=== PATIENT | female | born 1975 | race Two or more races ===

== ENCOUNTER 2020-07-23 10:00 | Outpatient (RCR) | payer OTHER, SELFPAY ==
--- NOTE | 2020-07-25 03:48 | HO.OPPROGNO ---
Subjective Subjective Date of Service: 07/23/20 Reason For Visit: depression Interim History: Felicita reports she is working hard to get through this time where she is homeless. Plans to look at at apartment on 07/26. Last seizure on 07/19-brief, muscle tension, some difficulty post seizure with full recovery within 2 hours she reports. Reports regime to be effective and without SE. Focusing on eating well, taking her vitamins and maintaining health. Sleep is variable depending upon current psychosocial stressor. Children are all well . I am not worried at the moment. Pt continues in regular psychotherapy. Medication Compliance: Yes Side effects from medications: No Attending Groups: No (NA) Review of Systems Reports abnormal gait (post seizure by history) and Reports seizure-like activity (07/19/20) Psychiatric: Reports abnormal sleep pattern (stressor dependend) Comments: Felicita and her have been evicted from their apartment. They are searching for new housing with the assistance of the housing authority. Mental Status Exam Mental Status Exam Patient Orientation: Person, Place, Time and Situation Level of Consciousness: Awake and Appropriate Patient Behavior: Appropriate Mood Description: Flat and Nervous (worries about housing) Affect Description: Flat Patient Cognition Impaired: No Ability to Follow Directions: Excellent Speech Pattern: Clear, Appropriate and Spontaneous Speech Memory Description: Intact Hallucinations: None (hx of this sx with increased stress and anxiety) Delusions: Not Present Thought Process: Intact and Goal Oriented Thought Content: positive for Intact Depressive Symptoms: Increased Anxiety, Insomnia (at times), Muscle Tension, Difficulty Sleeping (at times), Crying Spells and Hopelessness (at times, trying to be positive) Judgement: Good Discharge Plan Discharge Attending provider: Deann Chowdary Medications: New clonazepam [Klonopin] 2 mg tablet 2 mg PO BID Qty: 60 RF: 0 sertraline 25 mg tablet 25 mg PO DAILY Qty: 30 RF: 2 mirtazapine 45 mg tablet 45 mg PO BEDTIME Qty: 30 RF: 2 risperidone [Risperdal] 1 mg tablet 1 mg PO DAILY PRN (Reason: anxiety) Qty: 30 RF: 2 No Action ferrous sulfate 325 mg (65 mg iron) tablet 324 mg PO DAILY RF: 0 levetiracetam 750 mg tablet 750 mg PO BID RF: 0 oxycodone 5 mg tablet 5 mg PO BID PRN (Reason: pain) RF: 0 Women's Daily Formula 27-0.4 mg tablet 1 tab PO DAILY RF: 0 B Complex Plus Vitamin C 55-52-35-5-300 mg capsule 1 cap PO DAILY RF: 0 cholecalciferol (vitamin D3) [Vitamin D3] 25 mcg (1,000 unit) tablet 1 tab PO DAILY RF: 0 Assessment & Plan Patient educated on: medication risk/benefits (Risperdal prn pt finding helpful. We will continue along with current regime.), therapeutic strategies and medical condition Informed Consent: understands and further education needed Reason for contiued therapy Substantial Risk for: inability to function, rapid decompensation and med/psych decompensation Greater than 50% of the session was spent on counseling and/or coordination of care
== END 2020-09-23 23:55 | disposition home or self-care (01) ==
LOC: HO.PAOS 10:00
PROVIDERS: Visit Provider Clinical Nurse Specialist Psychiatric/Mental Health, Adult
DX: F32.9 Major depressive disorder, single episode, unspecified (principal)
CPT/HCPCS: 99213

== ENCOUNTER 2020-08-11 20:26 | Emergency (ER) | payer OTHER, SELFPAY ==
[2020-08-11 20:28] VITALS: BP 116/77; PULSE 99; RESP 20; TEMP 37.1; O2SAT 98; BMI 29.7
--- NOTE | 2020-08-11 21:40 | ECG_ITS ---
Test Reason : CP Blood Pressure : / mmHG Vent. Rate : 090 BPM Atrial Rate : 090 BPM P-R Int : 152 ms QRS Dur : 074 ms QT Int : 384 ms P-R-T Axes : 029 049 027 degrees QTc Int : 469 ms Normal sinus rhythm Nonspecific T wave abnormality Borderline ECG When compared with ECG of 13-FEB-2020 12:49, No significant change was found Referred By: Generic ED Physician Electronically Signed By:JOE PEREZ MD
== END 2020-08-11 22:34 | disposition left against medical advice (07) ==
PROVIDERS: Emergency Provider Student in an Organized Health Care Education/Training Program; PCP Internal Medicine
DX: R07.9 Chest pain, unspecified (principal)
CPT/HCPCS: 93005; 99282; 99283

== ENCOUNTER 2020-08-12 05:27 | Emergency (ER) | payer OTHER, SELFPAY ==
[2020-08-12 05:35] VITALS: BP 116/72; PULSE 95; RESP 16; TEMP 37.6; O2SAT 97; BMI 28.6
--- NOTE | 2020-08-12 06:07 | XR_ITS ---
EXAMINATION: LEFT HIP RADIOGRAPHS; CHEST RADIOGRAPH CLINICAL INFORMATION: Pain. COMPARISON: Chest radiograph 02/13/2020 TECHNIQUE: Portable AP chest radiograph; AP pelvis, AP and lateral radiographs of the left hip FINDINGS: Left hip: Mild superior subchondral sclerosis of the acetabulum is present bilaterally. No fractures or subluxations are identified. Mild osteitis condense and ileitis suggested in the left and right sacroiliac joints. Scattered pelvic phleboliths are noted. A moderate quantity of stool is noted within the rectal vault. CHEST: Multiple artifacts overlie the thorax. The cardiomediastinal silhouette is normal in appearance. No effusions or pneumothoraces are identified. A normal pattern of pulmonary vasculature is noted. XR/XR hip LT w PEL1V IMPRESSION: Chest: Normal. Lungs clear. Left hip: 1. No acute abnormalities. No fractures. 2. Mild bilateral hip osteoarthritis.
--- NOTE | 2020-08-12 06:08 | ECG_ITS ---
Test Reason : CP Blood Pressure : / mmHG Vent. Rate : 092 BPM Atrial Rate : 092 BPM P-R Int : 150 ms QRS Dur : 078 ms QT Int : 370 ms P-R-T Axes : 036 050 025 degrees QTc Int : 457 ms Normal sinus rhythm Nonspecific T wave abnormality Abnormal ECG When compared with ECG of 11-AUG-2020 20:35, No significant change was found Referred By: Gini Jeronimo Electronically Signed By:JOE PEREZ MD
--- NOTE | 2020-08-12 06:08 | XR_ITS ---
EXAMINATION: LEFT HIP RADIOGRAPHS; CHEST RADIOGRAPH CLINICAL INFORMATION: Pain. COMPARISON: Chest radiograph 02/13/2020 TECHNIQUE: Portable AP chest radiograph; AP pelvis, AP and lateral radiographs of the left hip FINDINGS: Left hip: Mild superior subchondral sclerosis of the acetabulum is present bilaterally. No fractures or subluxations are identified. Mild osteitis condense and ileitis suggested in the left and right sacroiliac joints. Scattered pelvic phleboliths are noted. A moderate quantity of stool is noted within the rectal vault. CHEST: Multiple artifacts overlie the thorax. The cardiomediastinal silhouette is normal in appearance. No effusions or pneumothoraces are identified. A normal pattern of pulmonary vasculature is noted. XR/XR chest 1V IMPRESSION: Chest: Normal. Lungs clear. Left hip: 1. No acute abnormalities. No fractures. 2. Mild bilateral hip osteoarthritis.
--- NOTE | 2020-08-12 06:11 | ED.CHESTPAIN ---
HPI - Chest Pain General Chief Complaint: Chest Pain Stated Complaint: ABD/CHEST/HIP PAIN,NO INJURY,SEEN T-1 FOR SAME Time Seen by Provider: 08/12/20 06:07 Source: patient Mode of arrival: EMS Limitations: no limitations History of Present Illness HPI narrative: This is a 45-year-old female who presents with left hip, abdominal, chest pain that is atraumatic and not associated with any fevers, chills, nausea, vomiting, urinary pain /burning/frequency. She states she has had some mild dizziness on changing position from sitting to standing that this transient is not associated with any hearing/visual /speech difficulties. She states that she was here yesterday for evaluation but had to leave because the wait was too long. Related Data Home Medications Medication Instructions Recorded Confirmed cholecalciferol (vitamin D3) 1 tab PO DAILY 07/25/20 07/25/20 [Vitamin D3] ferrous sulfate 324 mg PO DAILY 07/25/20 07/25/20 levetiracetam 750 mg PO BID 07/25/20 07/25/20 jyfxcedothdf-Mx-vavq-minerals 1 tab PO DAILY 07/25/20 07/25/20 [Women's Daily Formula] oxycodone 5 mg PO BID PRN 07/25/20 07/25/20 vitamin B comp and C no.3 [B 1 cap PO DAILY 07/25/20 07/25/20 Complex Plus Vitamin C] Previous Rx's Medication Instructions Recorded clonazepam [Klonopin] 2 mg PO BID #60 tab 07/23/20 mirtazapine 45 mg PO BEDTIME #30 tab 07/23/20 risperidone [Risperdal] 1 mg PO DAILY PRN #30 tab 07/23/20 sertraline 25 mg PO DAILY #30 tab 07/23/20 Allergies Allergy/AdvReac Type Severity Reaction Status Date / Time lorazepam [From ATIVAN] Allergy Unknown UNKNOWN Verified 08/12/20 05:38 zolmitriptan [From ZOMIG] Allergy Unknown RASH Verified 08/12/20 05:38 Review of Systems Review of Systems: Pertinent positives and negatives as stated in HPI 10 point review of systems otherwise negative. PMFSH Past Medical History Source: nursing notes reviewed Medical History Anemia Migraine Seizure disorder Surgical History Gastric bypass status for obesity Social History Social History Alcohol intake: never Smoking Status: Never smoker Smoked in Last 30 Days: No Use of substances other than those prescribed or required for medical reasons: No Advance Directives: No Advance Directives Information Provided: Yes Physical Exam Vital Signs: Vital Signs: Last Vital Signs Temp 99.7 F 08/12/20 05:35 Pulse 95 08/12/20 05:35 Resp 16 08/12/20 09:03 BP 116/72 08/12/20 05:35 Pulse Ox 97 08/12/20 05:35 Body Mass Index 28.6 VITAL SIGNS: Reviewed. GENERAL: Well developed, well nourished, in no acute distress. HEAD: Normocephalic/atraumatic, EYES: PERRLA, EOMI intact without pain, no nystagmus/pallor/icterus noted EARS: Ext canals without abnormality, TMs non-bulging and non-erythematous NOSE: Nares patent bilateral OROPHARYNX: no oral lesions noted, posterior pharynx clear and non-erythematous without noted tonsillar enlargement/erythema/exudates NECK: Supple, no adenopathy LUNGS: Normal breath sounds. No adventitious sounds or accessory muscle use. SpO2<97> CARDIOVASCULAR: Regular rate and rhythm without noted murmurs, no JVD or lower extremity edema. ABDOMEN: Soft, non-tender, non-distended with bowel sounds. No rigidity. No guarding. No palpable masses or hernias noted MUSCULOSKELETAL: No tenderness, deformities, or effusions noted on gross inspection. EXTREMITIES: No cyanosis, clubbing or edema. SKIN: Inspection of the skin reveals no rashes, ulcerations, jaundice, pallor, or petechiae. NEUROLOGIC: Alert and oriented x 4. Strength and sensation to light touch were grossly intact x 4. Course Course Course Narrative: This is a 45-year-old female with history and clinical presentation suggestive of possible arthritis with rule out infectious, anemia, arrhythmia, pneumonia, cardiac ischemia. On review of all investigations there is no evidence of systemic infection or change in anemia, there are no acute electrolyte abnormalities and no renal or liver abnormalities. High sensitivity troponin is within normal limits and taken together with an EKG that does not reflect any acute findings. patient's symptoms are less likely to be due to any form of arrhythmia and chest x-ray does not support pneumonia. MDM - Chest Pain Lab Data Result diagrams: 08/12/20 06:39 08/12/20 06:39 Labs: Lab Results 08/12/20 08/12/20 08/12/20 Range/Units 06:39 06:39 06:39 WBC 6.2 (4.8-10.8) X10*3/uL RBC 3.97 L (4.20-5.50) X10*6/uL Hgb 11.7 L (12.0-16.0) g/dl Hct 35.0 L (37-47) % MCV 88.2 (80-98) fL MCH 29.5 (27.0-33.0) pg MCHC 33.4 (31.0-35.0) g/dl RDW 11.6 (11.0-16.0) % Plt Count 325 (160-400) X10*3/uL MPV 9.6 (9.4-12.3) fL Immature Gran % (Auto) 0.2 (0.0-0.4) % Neut % (Auto) 79.4 H (45-73) % Lymph % (Auto) 17.1 L (20-40) % [place] % (Auto) 2.7 (2-11) % Eos % (Auto) 0.0 (0-4) % Baso % (Auto) 0.6 (0-2) % Lymph # (Auto) 1.1 L (1.2-4.9) X10*3/uL [place] # (Auto) 0.2 (0.1-1.2) X10*3/uL Eos # (Auto) 0.0 (0.0-0.4) X10*3/uL Baso # (Auto) 0.0 (0.0-0.2) X10*3/uL Abs Immat Gran (auto) 0.01 (0.00-0.03) X10*3/uL Absolute Neuts (auto) 4.9 (2.0-8.3) X10*3/uL Absolute Nucleated RBC 0.000 (0.0-0.012) X10*3/uL Nucleated RBC % (auto) 0.0 (0.0-0.2) /100WBC Sodium 138 (135-145) mmol/L Potassium 4.1 (3.3-5.1) mmol/l Chloride 105 (96-108) mmol/L Carbon Dioxide 25 (22-29) mmol/L Anion Gap 12 (12-20) BUN 12 (9-16) mg/dL Creatinine 0.73 (0.5-1.4) mg/dL Estim Creat Clear Calc 105.5 Estimated GFR > 60 Random Glucose 120 H (60-115) mg/dL Calcium 8.8 (8.4-10.2) mg/dL Total Bilirubin 0.5 (0.0-1.0) mg/dL AST 19 (5-31) U/L ALT 17 (0-31) U/L Alkaline Phosphatase 55 (39-117) U/L Troponin I High Sens < 3.5 (<3.5-17.0) ng/L Total Protein 7.4 (6.5-8.0) g/dL Albumin 4.2 (3.5-5.0) g/dL Urine Color Urine Appearance Urine pH (5.0-8.0) Ur Specific Roe (1.005-1.025) Urine Protein (NEG-TRACE) MG/DL Urine Glucose (UA) (NEG) MG/DL Urine Ketones (NEG) MG/DL Urine Blood (NEG) Urine Nitrite (NEG) Ur Leukocyte Esterase (NEG) Urine Test (NEGATIVE) 08/12/20 Range/Units 09:48 WBC (4.8-10.8) X10*3/uL RBC (4.20-5.50) X10*6/uL Hgb (12.0-16.0) g/dl Hct (37-47) % MCV (80-98) fL MCH (27.0-33.0) pg MCHC (31.0-35.0) g/dl RDW (11.0-16.0) % Plt Count (160-400) X10*3/uL MPV (9.4-12.3) fL Immature Gran % (Auto) (0.0-0.4) % Neut % (Auto) (45-73) % Lymph % (Auto) (20-40) % [place] % (Auto) (2-11) % Eos % (Auto) (0-4) % Baso % (Auto) (0-2) % Lymph # (Auto) (1.2-4.9) X10*3/uL [place] # (Auto) (0.1-1.2) X10*3/uL Eos # (Auto) (0.0-0.4) X10*3/uL Baso # (Auto) (0.0-0.2) X10*3/uL Abs Immat Gran (auto) (0.00-0.03) X10*3/uL Absolute Neuts (auto) (2.0-8.3) X10*3/uL Absolute Nucleated RBC (0.0-0.012) X10*3/uL Nucleated RBC % (auto) (0.0-0.2) /100WBC Sodium (135-145) mmol/L Potassium (3.3-5.1) mmol/l Chloride (96-108) mmol/L Carbon Dioxide (22-29) mmol/L Anion Gap (12-20) BUN (9-16) mg/dL Creatinine (0.5-1.4) mg/dL Estim Creat Clear Calc Estimated GFR Random Glucose (60-115) mg/dL Calcium (8.4-10.2) mg/dL Total Bilirubin (0.0-1.0) mg/dL AST (5-31) U/L ALT (0-31) U/L Alkaline Phosphatase (39-117) U/L Troponin I High Sens (<3.5-17.0) ng/L Total Protein (6.5-8.0) g/dL Albumin (3.5-5.0) g/dL Urine Color YELLOW Urine Appearance CLEAR Urine pH 8.0 (5.0-8.0) Ur Specific Roe 1.020 (1.005-1.025) Urine Protein NEG (NEG-TRACE) MG/DL Urine Glucose (UA) NEG (NEG) MG/DL Urine Ketones NEG (NEG) MG/DL Urine Blood NEG (NEG) Urine Nitrite NEG (NEG) Ur Leukocyte Esterase NEG (NEG) Urine Test NEGATIVE (NEGATIVE) ECG Data ECG #1: Attestation: I personally reviewed and interpreted this ECG as follows: Prior ECG tracings: available for review ( 08/11/2020 no acute changes on comparison) Interpretation: normal sinus rhythm, HR- 92, no evidence of acute ischemia, SD/QRS/ QTC are within normal limits. Discharge Plan Discharge Clinical Impression: Arthritis, Dehydration Patient Disposition: Home, Self-Care Instructions: Arthritis (ED) Additional Instructions: 1. You were evaluated for pneumonia, heart problems, infection, anemia and there were no findings to suggest any of these problems. There is a possibility that you may be mildly dehydrated and should increase your fluid intake especially with water. 2. Resume all of your home medications as prescribed. 3. Recommend following up with your primary care provider for further outpatient evaluation. Prescriptions: No Action clonazepam [Klonopin] 2 mg tablet 2 mg PO BID Qty: 60 RF: 0 sertraline 25 mg tablet 25 mg PO DAILY Qty: 30 RF: 2 mirtazapine 45 mg tablet 45 mg PO BEDTIME Qty: 30 RF: 2 risperidone [Risperdal] 1 mg tablet 1 mg PO DAILY PRN (Reason: anxiety) Qty: 30 RF: 2 ferrous sulfate 325 mg (65 mg iron) tablet 324 mg PO DAILY RF: 0 levetiracetam 750 mg tablet 750 mg PO BID RF: 0 oxycodone 5 mg tablet 5 mg PO BID PRN (Reason: pain) RF: 0 Women's Daily Formula 27-0.4 mg tablet 1 tab PO DAILY RF: 0 B Complex Plus Vitamin C 95-56-55-5-300 mg capsule 1 cap PO DAILY RF: 0 cholecalciferol (vitamin D3) [Vitamin D3] 25 mcg (1,000 unit) tablet 1 tab PO DAILY RF: 0 Referrals: Joan Posey MD [Primary Care Provider] - 2 days ( Further evaluation for patient's concerns regarding her seizures.)
[2020-08-12 06:43] LABS: MANUAL DIFF FLAG NO
[2020-08-12 06:57] LABS: Basophils Percent Auto 0.6 % (0-2); Hemoglobin 11.7 g/dl (12.0-16.0); Imm Gran Abs Auto 0.01 X10*3/uL (0.00-0.03); Imm Gran Pct Auto 0.2 % (0.0-0.4); Lymphocytes Absolute Auto 1.1 X10*3/uL (1.2-4.9); Lymphocytes Percent Auto 17.1 % (20-40); Mean Corpuscular HGB Conc 33.4 g/dl (31.0-35.0); Mean Corpuscular Hemoglobin 29.5 pg (27.0-33.0); Mean Corpuscular Volume 88.2 fL (80-98); Mean Platelet Volume 9.6 fL (9.4-12.3); Monocytes Absolute Auto 0.2 X10*3/uL (0.1-1.2); Monocytes Percent Auto 2.7 % (2-11); Neutrophils Absolute Auto 4.9 X10*3/uL (2.0-8.3); Neutrophils Percent Auto 79.4 % (45-73); Platelet Count 325 X10*3/uL (160-400); Red Blood Count 3.97 X10*6/uL (4.20-5.50); Red Cell Distribution Width 11.6 % (11.0-16.0); White Blood Count 6.2 X10*3/uL (4.8-10.8)
[2020-08-12 07:08] LABS: Alanine Aminotransferase 17 U/L (0-31); Albumin Level 4.2 g/dL (3.5-5.0); Alkaline Phosphatase 55 U/L (39-117); Anion Gap 12 (12-20); Aspartate Amino Transferase 19 U/L (5-31); Bilirubin Total 0.5 mg/dL (0.0-1.0); Blood Urea Nitrogen 12 mg/dL (9-16); Calcium 8.8 mg/dL (8.4-10.2); Carbon Dioxide 25 mmol/L (22-29); Chloride 105 mmol/L (96-108); Creatinine Clr Calc Pharmacy 105.5; Estimated Glomerular Filt Rate > 60; Glucose Random 120 mg/dL (60-115); Potassium 4.1 mmol/l (3.3-5.1); Sodium 138 mmol/L (135-145); Total Protein 7.4 g/dL (6.5-8.0)
[2020-08-12 07:11] LABS: Troponin-I High Sensitivity < 3.5 ng/L (<3.5-17.0)
[2020-08-12 09:03] VITALS: RESP 16
[2020-08-12 09:55] LABS: Glucose Urine UA NEG (NEG); Leukocyte Esterase Urine NEG (NEG); Nitrite Urine NEG (NEG); Urine Blood NEG (NEG); Urine Ketones NEG (NEG); Urine Protein NEG (NEG-TRACE)
[2020-08-12 09:56] LABS: Appearance Urine CLEAR; Color Urine YELLOW; UACC Culture Trigger NO; UPreg QC Valid YES
[2020-08-12 09:57] LABS: Urine Pregnancy NEGATIVE (NEGATIVE)
== END 2020-08-12 10:30 | disposition home or self-care (01) ==
PROVIDERS: Emergency Provider Student in an Organized Health Care Education/Training Program; PCP Internal Medicine
DX: M16.12 Unilateral primary osteoarthritis, left hip (principal); R07.9 Chest pain, unspecified; E86.0 Dehydration; R42 Dizziness and giddiness; M25.552 Pain in left hip; R10.9 Unspecified abdominal pain; Z79.899 Other long term (current) drug therapy; Z98.84 Bariatric surgery status
CPT/HCPCS: 36415; 71045; 73502; 80053; 81003; 81025; 84484; 85025; 93005; 99283; 99284

== ENCOUNTER 2020-08-16 19:28 | Emergency (ER) | payer OTHER, SELFPAY ==
--- NOTE | 2020-08-16 08:49 | ECG_ITS ---
Test Reason : CHEST PAIN Blood Pressure : / mmHG Vent. Rate : 087 BPM Atrial Rate : 087 BPM P-R Int : 142 ms QRS Dur : 080 ms QT Int : 370 ms P-R-T Axes : 031 035 016 degrees QTc Int : 445 ms Normal sinus rhythm Nonspecific ST abnormality Abnormal ECG When compared with ECG of 12-AUG-2020 06:29, Nonspecific T wave abnormality, improved in Anterolateral leads Referred By: Rodriguez Momin Electronically Signed By:JOE PEREZ MD
[2020-08-16 20:03] VITALS: BP 131/80; PULSE 86; RESP 16; TEMP 37.1; O2SAT 98; BMI 30.2
[2020-08-16 20:58] LABS: MANUAL DIFF FLAG NO
[2020-08-16 21:01] LABS: Basophils Absolute Auto 0.1 X10*3/uL (0.0-0.2); Basophils Percent Auto 0.9 % (0-2); Eosinophils Percent Auto 0.5 % (0-4); Hematocrit 32.1 % (37-47); Hemoglobin 10.8 g/dl (12.0-16.0); Imm Gran Abs Auto 0.02 X10*3/uL (0.00-0.03); Imm Gran Pct Auto 0.3 % (0.0-0.4); Lymphocytes Absolute Auto 2.7 X10*3/uL (1.2-4.9); Lymphocytes Percent Auto 35.4 % (20-40); Mean Corpuscular HGB Conc 33.6 g/dl (31.0-35.0); Mean Corpuscular Hemoglobin 29.6 pg (27.0-33.0); Mean Corpuscular Volume 87.9 fL (80-98); Mean Platelet Volume 9.3 fL (9.4-12.3); Monocytes Absolute Auto 0.5 X10*3/uL (0.1-1.2); Monocytes Percent Auto 7.2 % (2-11); Neutrophils Absolute Auto 4.2 X10*3/uL (2.0-8.3); Neutrophils Percent Auto 55.7 % (45-73); Platelet Count 309 X10*3/uL (160-400); Red Blood Count 3.65 X10*6/uL (4.20-5.50); Red Cell Distribution Width 11.9 % (11.0-16.0); White Blood Count 7.5 X10*3/uL (4.8-10.8)
[2020-08-16 21:15] VITALS: PULSE 82
--- NOTE | 2020-08-16 21:18 | PC.NURSE ---
Pt c/o mild nausea at this time, provider aware, no new orders. call nicolas within reach. pending labs
[2020-08-16 21:21] LABS: Anion Gap 12 (12-20); Blood Urea Nitrogen 7 mg/dL (9-16); Calcium 8.5 mg/dL (8.4-10.2); Carbon Dioxide 24 mmol/L (22-29); Chloride 105 mmol/L (96-108); Creatinine Clr Calc Pharmacy 114.5; Estimated Glomerular Filt Rate > 60; Glucose Random 113 mg/dL (60-115); Sodium 138 mmol/L (135-145)
[2020-08-16 21:28] LABS: Troponin-I High Sensitivity < 3.5 ng/L (<3.5-17.0)
--- NOTE | 2020-08-16 21:33 | ED_ITS ---
HPI - Chest Pain General Chief Complaint: Chest Pain Stated Complaint: Chest pain Time Seen by Provider: 08/16/20 20:38 Source: patient Mode of arrival: ambulatory History of Present Illness HPI narrative: patient with no history of coronary artery disease was moving boxes yesterday under lot of stress lately complaining of pain in the left front of the chest since yesterday which increases on movement of the left arm and palpation patient denied any shortness of breath no cough patient had similar pain in the past but this one seems to be different per patient MD complaint: chest pain Onset (ago): day(s) (1) Timing of current episode: constant Prior episodes: Yes Onset: during rest Pain location: left chest Pain radiation: left arm Severity: mild Quality: aching Relieving factors: nothing Exacerbating factors: movement Context: recent illness Associated symptoms: nausea Treatment prior to arrival: none Risk Factors Coronary artery disease risk factors: none Related Data Home Medications Medication Instructions Recorded Confirmed cholecalciferol (vitamin D3) 1 tab PO DAILY 07/25/20 07/25/20 [Vitamin D3] ferrous sulfate 324 mg PO DAILY 07/25/20 07/25/20 levetiracetam 750 mg PO BID 07/25/20 07/25/20 rtwcquertmvd-Ah-ccrc-minerals 1 tab PO DAILY 07/25/20 07/25/20 [Women's Daily Formula] oxycodone 5 mg PO BID PRN 07/25/20 07/25/20 vitamin B comp and C no.3 [B 1 cap PO DAILY 07/25/20 07/25/20 Complex Plus Vitamin C] Previous Rx's Medication Instructions Recorded clonazepam [Klonopin] 2 mg PO BID #60 tab 07/23/20 mirtazapine 45 mg PO BEDTIME #30 tab 07/23/20 risperidone [Risperdal] 1 mg PO DAILY PRN #30 tab 07/23/20 sertraline 25 mg PO DAILY #30 tab 07/23/20 Allergies Allergy/AdvReac Type Severity Reaction Status Date / Time lorazepam [From ATIVAN] Allergy Unknown UNKNOWN Verified 08/12/20 05:38 zolmitriptan [From ZOMIG] Allergy Unknown RASH Verified 08/12/20 05:38 Review of Systems Review of Systems: REVIEW OF SYSTEMS: Pertinent positives and negatives are stated above in the history. GEN: no fevers, chills, fatigue HEENT: no nasal congestion, sore throat, ear pain NEURO: no headache, dizziness, focal weakness PULM: no cough, shortness of breath CV: no palpitations, LE edema ABD: no abdominal pain, nausea, vomiting, diarrhea : no dysuria, urgency, frequency SKIN: no rash ROS otherwise negative x 10 [facility] Past Medical History Medical History Anemia Migraine Seizure disorder Surgical History Gastric bypass status for obesity Social History Social History Alcohol intake: never Smoking Status: Never smoker Smoked in Last 30 Days: No Use of substances other than those prescribed or required for medical reasons: No Advance Directives: No Advance Directives Information Provided: Yes Physical Exam Vital Signs: Vital Signs: Last Vital Signs Temp 98.7 F 08/16/20 20:03 Pulse 91 08/16/20 21:40 Resp 16 08/16/20 21:40 BP 113/70 08/16/20 21:40 Pulse Ox 98 08/16/20 21:40 Body Mass Index 30.2 Appearance: Alert. Oriented X3. No acute distress. Eyes: Pupils equal, round and reactive to light. ENT: Pharynx normal. Neck: Normal inspection. Neck supple. CVS: Normal heart rate and rhythm. Pulses normal left anterior chest wall tenderness on palpation no crepitus pain increases on left arm movements and palpation. Respiratory: No respiratory distress. Breath sounds normal. Abdomen: Soft and nontender. Skin: Skin warm and dry. Normal skin color. Normal skin turgor. Extremities: No lower extremity edema. Good range of movement Neuro: Oriented X 3. No motor deficit. No sensory deficit. MDM - Chest Pain MDM Narrative Medical decision making narrative: Pt with atypical chest pain EKG and high sensitive troponin negative patient advised to follow-up with primary care doctor Differential Diagnosis Differential diagnosis: Likely atypical chest pain, costochondritis and chest pain Medical Records Data Attestation: I reviewed the patient's medical records. Lab Data Attestation: I reviewed the patient's lab results. Result diagrams: 08/16/20 20:51 08/16/20 20:51 Labs: Lab Results 08/16/20 08/16/20 08/16/20 Range/Units 20:51 20:51 20:51 WBC 7.5 (4.8-10.8) X10*3/uL RBC 3.65 L (4.20-5.50) X10*6/uL Hgb 10.8 L (12.0-16.0) g/dl Hct 32.1 L (37-47) % MCV 87.9 (80-98) fL MCH 29.6 (27.0-33.0) pg MCHC 33.6 (31.0-35.0) g/dl RDW 11.9 (11.0-16.0) % Plt Count 309 (160-400) X10*3/uL MPV 9.3 L (9.4-12.3) fL Immature Gran % (Auto) 0.3 (0.0-0.4) % Neut % (Auto) 55.7 (45-73) % Lymph % (Auto) 35.4 (20-40) % [place] % (Auto) 7.2 (2-11) % Eos % (Auto) 0.5 (0-4) % Baso % (Auto) 0.9 (0-2) % Lymph # (Auto) 2.7 (1.2-4.9) X10*3/uL [place] # (Auto) 0.5 (0.1-1.2) X10*3/uL Eos # (Auto) 0.0 (0.0-0.4) X10*3/uL Baso # (Auto) 0.1 (0.0-0.2) X10*3/uL Abs Immat Gran (auto) 0.02 (0.00-0.03) X10*3/uL Absolute Neuts (auto) 4.2 (2.0-8.3) X10*3/uL Absolute Nucleated RBC 0.000 (0.0-0.012) X10*3/uL Nucleated RBC % (auto) 0.0 (0.0-0.2) /100WBC Hold Blue Top SEE NOTE Sodium 138 (135-145) mmol/L Potassium 3.0 L D (3.3-5.1) mmol/l Chloride 105 (96-108) mmol/L Carbon Dioxide 24 (22-29) mmol/L Anion Gap 12 (12-20) BUN 7 L (9-16) mg/dL Creatinine 0.69 (0.5-1.4) mg/dL Estim Creat Clear Calc 114.5 Estimated GFR > 60 Random Glucose 113 (60-115) mg/dL Calcium 8.5 (8.4-10.2) mg/dL Troponin I High Sens (<3.5-17.0) ng/L 08/16/20 Range/Units 20:51 WBC (4.8-10.8) X10*3/uL RBC (4.20-5.50) X10*6/uL Hgb (12.0-16.0) g/dl Hct (37-47) % MCV (80-98) fL MCH (27.0-33.0) pg MCHC (31.0-35.0) g/dl RDW (11.0-16.0) % Plt Count (160-400) X10*3/uL MPV (9.4-12.3) fL Immature Gran % (Auto) (0.0-0.4) % Neut % (Auto) (45-73) % Lymph % (Auto) (20-40) % [place] % (Auto) (2-11) % Eos % (Auto) (0-4) % Baso % (Auto) (0-2) % Lymph # (Auto) (1.2-4.9) X10*3/uL [place] # (Auto) (0.1-1.2) X10*3/uL Eos # (Auto) (0.0-0.4) X10*3/uL Baso # (Auto) (0.0-0.2) X10*3/uL Abs Immat Gran (auto) (0.00-0.03) X10*3/uL Absolute Neuts (auto) (2.0-8.3) X10*3/uL Absolute Nucleated RBC (0.0-0.012) X10*3/uL Nucleated RBC % (auto) (0.0-0.2) /100WBC Hold Blue Top Sodium (135-145) mmol/L Potassium (3.3-5.1) mmol/l Chloride (96-108) mmol/L Carbon Dioxide (22-29) mmol/L Anion Gap (12-20) BUN (9-16) mg/dL Creatinine (0.5-1.4) mg/dL Estim Creat Clear Calc Estimated GFR Random Glucose (60-115) mg/dL Calcium (8.4-10.2) mg/dL Troponin I High Sens < 3.5 (<3.5-17.0) ng/L ECG Data ECG #1: Interpretation: normal sinus rhythm heart rate [address] T wave changes normal axis normal intervals impression no acute ischemia Discharge Plan Discharge Clinical Impression: Atypical chest pain, Hypokalemia Patient Disposition: Home, Self-Care Instructions: Hypokalemia (ED), Chest Wall Pain (ED) Additional Instructions: continue oxycodone for pain and follow-up with primary care doctor. Have extra banana and orange juice daily for slight low potassium level in your blood and follow-up with your PCP in next 2 days Prescriptions: No Action clonazepam [Klonopin] 2 mg tablet 2 mg PO BID Qty: 60 RF: 0 sertraline 25 mg tablet 25 mg PO DAILY Qty: 30 RF: 2 mirtazapine 45 mg tablet 45 mg PO BEDTIME Qty: 30 RF: 2 risperidone [Risperdal] 1 mg tablet 1 mg PO DAILY PRN (Reason: anxiety) Qty: 30 RF: 2 ferrous sulfate 325 mg (65 mg iron) tablet 324 mg PO DAILY RF: 0 levetiracetam 750 mg tablet 750 mg PO BID RF: 0 oxycodone 5 mg tablet 5 mg PO BID PRN (Reason: pain) RF: 0 Women's Daily Formula 27-0.4 mg tablet 1 tab PO DAILY RF: 0 B Complex Plus Vitamin C 53-82-62-5-300 mg capsule 1 cap PO DAILY RF: 0 cholecalciferol (vitamin D3) [Vitamin D3] 25 mcg (1,000 unit) tablet 1 tab PO DAILY RF: 0 Interventions: ED Discharge Assessment Last Done: 08/16/20 22:26 Discharge Date/Time: 08/16/20 22:26
[2020-08-16] MEDS: Potassium Bicarbonate/Cit AC 25 MEQ TABLET.EFF PO (21:39)
[2020-08-16 21:40] VITALS: BP 113/70; PULSE 91; RESP 16; O2SAT 98
== END 2020-08-16 22:26 | disposition home or self-care (01) ==
PROVIDERS: Emergency Provider Internal Medicine; PCP Internal Medicine
DX: R07.89 Other chest pain (principal); E87.6 Hypokalemia; M79.602 Pain in left arm; Z79.899 Other long term (current) drug therapy; Z98.84 Bariatric surgery status
CPT/HCPCS: 36415; 80048; 84484; 85025; 93005; 99284

== ENCOUNTER → 2021-10-10 13:21 | Outpatient (BNVA) | payer OTHER, SELFPAY | PROVIDERS: PCP Internal Medicine; Visit Provider Anesthesiology | DX: M46.1 Sacroiliitis, not elsewhere classified (principal); G89.4 Chronic pain syndrome | CPT/HCPCS: 99202 ==

== ENCOUNTER → 2021-12-21 14:37 | Outpatient (BNVA) | payer OTHER, SELFPAY | PROVIDERS: PCP Internal Medicine; Visit Provider Nurse Practitioner Family | DX: G40.909 Epilepsy, unspecified, not intractable, without status epilepticus (principal); G43.909 Migraine, unspecified, not intractable, without status migrainosus; M54.81 Occipital neuralgia; M54.2 Cervicalgia; Z79.899 Other long term (current) drug therapy | CPT/HCPCS: 99202 ==

== ENCOUNTER 2022-01-05 11:43 | Day surgery (SDC) | payer OTHER, SELFPAY ==
[2021-12-30 11:14] VITALS: BMI 35.4
--- NOTE | 2022-01-04 10:27 | HO.ANESPROP2 ---
Documented by User: Shanel Kebede NP 01/04/22 10:29 HPI - Anesthesia Eval Consult details Narrative: 46yo F for Left Sacroiliac Joint Steroid Injection PMFSH Active Problems Active Problems: All Active Problems (Updated 12/30/21 @ 11:14 by Vanessa Colon RN) Cervicalgia (Acute) Bilateral occipital neuralgia (Acute) Chronic pain syndrome (Acute) Sacroiliitis (Acute) Seizure disorder (Acute) Migraine (Acute) Anemia (Acute) Past Medical History Medical History (Updated 01/05/22 @ 12:06 by Evon Reynolds) Anemia Asthma Chronic pain syndrome Depression with anxiety Migraine Sacroiliitis Seizure disorder Surgical History Surgical History (Updated 01/05/22 @ 12:05 by Evon Reynolds) Gastric bypass status for obesity History of bilateral breast reduction surgery Tubal ligation status Social History Social History (Updated 12/21/21 @ 14:58 by FRITZ Stinson) Alcohol intake: never Patient Tobacco Use Status: Never used Tobacco Meds Allergies Allergy/AdvReac Type Severity Reaction Status Date / Time zolmitriptan [From ZOMIG] Allergy Intermediate Migraine Verified 01/05/22 11:57 lorazepam [From ATIVAN] AdvReac Intermediate Nausea Verified 01/05/22 11:57 Home Medications Medication Instructions Recorded Confirmed Last Taken Type ferrous sulfate 325 mg (65 mg 324 mg PO DAILY 07/25/20 01/05/22 01/04/22 History iron) tablet levetiracetam 750 mg tablet 750 mg PO BID 07/25/20 01/05/22 01/05/22 07:00 History trcycncwukca-Dq-nuss-minerals 27 1 tab PO DAILY 07/25/20 12/30/21 Unknown History mg-0.4 mg tablet (Women's Daily Formula) oxycodone 5 mg tablet 5 mg PO BID PRN 07/25/20 12/30/21 Unknown History vitamin B comp and C no.3 15 mg-10 1 cap PO DAILY 07/25/20 12/30/21 Unknown History mg-50 mg-5 mg-300 mg capsule (B Complex Plus Vitamin C) mecobalamin (vitamin B12) 10,000 mcg IM 12/21/21 12/21/21 Unknown History mcg solution for injection Exam Exam Date and Time: January 04, 2022 1027 Height,Weight and Vital Signs: Height 5 ft 7 in Weight 102.512 kg Assessment and Plan Assessment Anesthesia Assessment: Chart Reviewed Documented by User: Duc Sheffield MD 01/16/22 16:15 HPI - Anesthesia Eval Consult details Narrative: 46yo F for Left Sacroiliac Joint Steroid Injection chronic back pain , radiation to LE and tingling PMFSH Past Medical History Medical History (Updated 01/05/22 @ 12:06 by Evon Reynolds) Anemia Asthma Chronic pain syndrome Depression with anxiety Migraine Sacroiliitis Seizure disorder Functional capacity: independent ambulation Family History Family history of problems with anesthesia: No Surgical History Surgical History (Updated 01/05/22 @ 12:05 by Evon Reynolds) Gastric bypass status for obesity History of bilateral breast reduction surgery Tubal ligation status History of Problems with Anesthesia: No Social History Social History (Updated 12/21/21 @ 14:58 by FRITZ Stinson) Alcohol intake: never Patient Tobacco Use Status: Never used Tobacco Meds Allergies Allergy/AdvReac Type Severity Reaction Status Date / Time zolmitriptan [From ZOMIG] Allergy Intermediate Migraine Verified 01/05/22 11:57 lorazepam [From ATIVAN] AdvReac Intermediate Nausea Verified 01/05/22 11:57 Home Medications Medication Instructions Recorded Confirmed Last Taken Type ferrous sulfate 325 mg (65 mg 324 mg PO DAILY 07/25/20 01/05/22 01/04/22 History iron) tablet levetiracetam 750 mg tablet 750 mg PO BID 07/25/20 01/05/22 01/05/22 07:00 History rmyquvboslbn-Hg-qwxk-minerals 27 1 tab PO DAILY 07/25/20 12/30/21 Unknown History mg-0.4 mg tablet (Women's Daily Formula) oxycodone 5 mg tablet 5 mg PO BID PRN 07/25/20 12/30/21 Unknown History vitamin B comp and C no.3 15 mg-10 1 cap PO DAILY 07/25/20 12/30/21 Unknown History mg-50 mg-5 mg-300 mg capsule (B Complex Plus Vitamin C) mecobalamin (vitamin B12) 10,000 mcg IM 12/21/21 12/21/21 Unknown History mcg solution for injection Exam Airway Mallampati Class: II TM Dist: >3cm Neck ROM: Full Partial: Upper Loose/Missing/Broken Teeth: Yes Heart: S1,S2 Lungs: b/l breath sounds Assessment and Plan Assessment Anesthesia Assessment: Anesthesia Plan Discussed Final Anesthetic Review Family History of Problems with Anesthesia: No History of Problems with Anesthesia: No NPO: Yes ASA Class: II Final Preanesthetic Review: No Changes in Pt Med Stat, Meds/Allgs Chart Reviewed, Consent Obtained/Reviewed and Anes Risks/Benef Reviewed Patient Risk: Intermediate Procedure Risk: Intermediate Anesthetic Plan Anesthetic Plan: MAC: Disposition: Standard PACU
--- NOTE | ~2022-01-05 | FL_ITS ---
EXAMINATION: XR FLUOROSCOPY WITH IMAGES CLINICAL INFORMATION: Sacroiliac joint injection COMPARISON: Pelvic radiograph 08/12/2020 TECHNIQUE: Fluoroscopy performed by Dr. Wilmer Oliver. Fluoroscopy time: 0.1 minutes DAP: 1.17 Gycm2 Images: 1 FINDINGS: Spinal needle overlies lower left SI joint. There is contrast in the periarticular soft tissues with probable early intra-articular contrast. No vasculature communication appreciated. FL/FL guidance in OR IMPRESSION: Fluoroscopy for pain management procedure.
[2022-01-05 12:02] VITALS: BP 120/80; PULSE 62; RESP 16; TEMP 36.6; O2SAT 98
--- NOTE | 2022-01-05 12:13 | MHC.SHP ---
Pre-Procedural Eval Section A Date of Service: 01/05/22 Section B Chief Complaint: sacroilitis Details of Present Illness: as above Relevant Family History (Specify if Yes): No Relevant Social History: None Present Medications: None Medical History: No relevant PMH History of Previous Operations: No relevant previous surgery Allergies: Allergies Allergy/AdvReac Type Severity Reaction Status Date / Time zolmitriptan [From ZOMIG] Allergy Intermediate Migraine Verified 01/05/22 11:57 lorazepam [From ATIVAN] AdvReac Intermediate Nausea Verified 01/05/22 11:57 Review of Systems Sugical H&P ROS: Negative: Constitution, Cardiovascular, Respiratory, Neurological, Psychiatric, Hem-Onc, Allergic/Immunologic, Gastrointestinal, Genitourinary, Musculoskeletal, Integumentary, Endocrine and Eyes/Ears/Nose/Throat Exam Surgical H&P Exam: Normal: HEENT, Normal: Heart, Normal: Lungs, Normal: Extremities, Normal: Abdomen, Normal: Skin and Normal: Neurological Plan Diagnosis/Plan: Unchanged I have reviewed the history and physical and performed a pertinent physical examination on my patient. No changes have occurred unless specified.
--- NOTE | 2022-01-05 12:14 | P.OP_ITS ---
Operative Note Operative Note Date of Service: 01/05/22 Narrative: Left SI joint steroid injection. Felicita is very pleasant 46 y.o. female? who came today into the operating room for the treatment of sacroiliitis. After obtaining informed consent the patient was brought to the operating room, She was positioned prone on operating table, [employer] [employer] monitors were applied and patient was sedated.? ?Time-out was performed delineating correct site, side, the nature of the procedure, patient's allergy, preoperative antibiotic if needed.? All operating room staff was participating in OR time-out procedure. Patient's lower back was prepped with DuraPrep twice and draped with utility Drapes.? Sterilely draped C-arm was brought over operating field and picture of the left SI joint was demonstrated on the screen. Tilting C-arm contralateral to the right 15 degrees the posterior and anterior portion of the SI joint on the left were superimposed on the screen. The point of interest was the most posterior and most inferior portion of the joint. the point of the injection needle insertion was chosen slightly medial to the sacral lip of the SI joint. The injection of local anesthetic into the skin was performed in the projection of the point of interest. After that 22g 3-1/2 inch needle was advanced toward the joint in tunnel vision fashion. When the needle was felt to enter the capsule of the joint contrast was injected into the joint demonstrating intra-articular spread of the contrast. After that injection of 4 mls of bupivacain 0.5% mixed with kenalog 40 mg was injected into the needle. The needle was removed after that and Bandaid was applied.the patient tolerated procedure well - she was taken outside of the OR to PACU whe she recovered uneventfully. She went home without immediate complications.
[2022-01-05] MEDS: Lactated Ringers 1,000 ML 100 ML IVCONT (12:28)
--- NOTE | 2022-01-05 14:21 | PM.OP ---
Brief Operative Note Date of Service: 01/05/22 Pre-op diagnosis: sacroiliitis Post-op diagnosis: same Procedure: sacroiliac joint injection - left Surgeon: Wilmer Oliver MD Anesthesia: MAC Was an Integrated Campaign Manager used for this Procedure?: No Estimated blood loss (mL): 0 Pathology: none sent Condition: stable Disposition: PACU
[2022-01-05] MEDS: Acetaminophen 325 MG TABLET 650 MG PO (14:30)
[2022-01-05 14:32] VITALS: BP 87/58; PULSE 65; RESP 16; TEMP 36.5; O2SAT 100
[2022-01-05 14:36] VITALS: BP 93/63; PULSE 69; RESP 17; O2SAT 100
[2022-01-05 14:47] VITALS: BP 102/60; PULSE 73; RESP 16; TEMP 36.4; O2SAT 100
[2022-01-05 15:02] VITALS: BP 106/66; PULSE 68; RESP 16; O2SAT 100
== END 2022-01-05 15:45 | disposition home or self-care (01) ==
PROVIDERS: PCP Internal Medicine; Visit Provider Anesthesiology
PROC: 3E0U33Z Introduction of Anti-inflammatory into Joints, Percutaneous Approach (ICD-10-PCS; CPT 27096; principal; 2022-01-05 13:10)
DX: M46.1 Sacroiliitis, not elsewhere classified (principal); G89.4 Chronic pain syndrome; G40.909 Epilepsy, unspecified, not intractable, without status epilepticus; G43.909 Migraine, unspecified, not intractable, without status migrainosus; D64.9 Anemia, unspecified; Z79.899 Other long term (current) drug therapy; Z88.8 Allergy status to other drugs, medicaments and biological substances
CPT/HCPCS: 27096; J1100; J2250; J3300; Q9967

== ENCOUNTER → 2022-02-02 14:31 | Outpatient (BNVA) | payer OTHER, SELFPAY | PROVIDERS: PCP Internal Medicine; Visit Provider Nurse Practitioner Family | DX: G43.909 Migraine, unspecified, not intractable, without status migrainosus (principal); G40.909 Epilepsy, unspecified, not intractable, without status epilepticus; M54.81 Occipital neuralgia | CPT/HCPCS: 99212 ==

== ENCOUNTER → 2022-04-12 10:02 | Outpatient (BNVA) | payer OTHER, SELFPAY | PROVIDERS: PCP Internal Medicine; Visit Provider Anesthesiology | DX: G89.4 Chronic pain syndrome (principal); M46.1 Sacroiliitis, not elsewhere classified | CPT/HCPCS: 99212 ==

== ENCOUNTER → 2022-04-21 13:43 | Outpatient (BNVA) | payer OTHER, SELFPAY | PROVIDERS: PCP Internal Medicine; Visit Provider Nurse Practitioner Family | DX: M54.81 Occipital neuralgia (principal); M54.2 Cervicalgia; G40.909 Epilepsy, unspecified, not intractable, without status epilepticus; G43.909 Migraine, unspecified, not intractable, without status migrainosus; Z79.899 Other long term (current) drug therapy | CPT/HCPCS: 99212 ==

== ENCOUNTER 2022-05-16 06:17 | Outpatient (REF) | payer OTHER, SELFPAY ==
--- NOTE | ~2022-05-16 | FL_ITS ---
EXAMINATION: XR FLUOROSCOPY WITH IMAGES CLINICAL INFORMATION: Sacroiliitis. COMPARISON: 01/05/2022 . TECHNIQUE: Fluoroscopy performed by Dr. Wilmer Oliver. Fluoroscopy time: 0.2 minutes. Cumulative Dose: 4.10 mGy-cm DAP: 1.11 Gy-cm2 Images: 1. FINDINGS: Image demonstrates needle and contrast in region of inferior aspect of the left sacroiliac joint. FL/FL guidance in treatment room IMPRESSION: Fluoroscopic guidance for pain management procedure.
== END 2022-05-16 06:18 | disposition home or self-care (01) ==
LOC: HO.RADIR 06:17
PROVIDERS: Visit Provider Anesthesiology
DX: M46.1 Sacroiliitis, not elsewhere classified (principal); G89.4 Chronic pain syndrome
CPT/HCPCS: 27096

== ENCOUNTER → 2022-07-10 13:15 | Outpatient (BNVA) | payer OTHER, SELFPAY | PROVIDERS: PCP Internal Medicine; Visit Provider Nurse Practitioner Family | DX: G43.909 Migraine, unspecified, not intractable, without status migrainosus (principal); G40.909 Epilepsy, unspecified, not intractable, without status epilepticus; M54.2 Cervicalgia; M54.81 Occipital neuralgia | CPT/HCPCS: 99212 ==

== ENCOUNTER → 2022-10-09 11:52 | Outpatient (BNVA) | payer OTHER, SELFPAY | PROVIDERS: PCP Internal Medicine; Visit Provider Nurse Practitioner Family | DX: Z13.89 Encounter for screening for other disorder (principal) ==

== ENCOUNTER 2022-12-04 07:45 | Emergency (ER) | payer OTHER, SELFPAY ==
[2022-12-04 07:56] VITALS: BP 127/76; PULSE 73; RESP 18; TEMP 36.8; O2SAT 97; BMI 30.7
[2022-12-04 08:11] VITALS: BP 116/66; PULSE 72; RESP 13; O2SAT 97
[2022-12-04 08:51] LABS: MANUAL DIFF FLAG NO
[2022-12-04 08:57] LABS: Basophils Absolute Auto 0.1 X10*3/uL (0.0-0.2); Basophils Percent Auto 1.2 % (0-2); Eosinophils Percent Auto 0.4 % (0-4); Hematocrit 34.1 % (37.0-47.0); Hemoglobin 11.6 g/dl (12.0-16.0); Imm Gran Abs Auto 0.01 X10*3/uL (0.00-0.03); Imm Gran Pct Auto 0.2 % (0.0-0.4); Lymphocytes Absolute Auto 1.3 X10*3/uL (1.2-4.9); Mean Corpuscular Hemoglobin 30.6 pg (27.0-33.0); Mean Platelet Volume 10.5 fL (9.4-12.3); Monocytes Absolute Auto 0.3 X10*3/uL (0.1-1.2); Neutrophils Absolute Auto 3.4 x10*3/uL (2.0-8.3); Neutrophils Percent Auto 66.2 % (45-73); Platelet Count 270 X10*3/uL (160-400); Red Blood Count 3.79 X10*6/uL (4.20-5.50); Red Cell Distribution Width 11.8 % (11.0-16.0); White Blood Count 5.2 X10*3/uL (4.8-10.8)
[2022-12-04 09:10] LABS: Alanine Aminotransferase 12 U/L (0-31); Albumin Level 3.9 g/dL (3.5-5.0); Alkaline Phosphatase 79 U/L (39-117); Anion Gap 16 (12-20); Aspartate Amino Transferase 15 U/L (5-31); Bilirubin Total 0.7 mg/dL (0.0-1.0); Blood Urea Nitrogen 8 mg/dL (9-16); Calcium 9.2 mg/dL (8.4-10.2); Carbon Dioxide 21 mmol/L (22-29); Chloride 109 mmol/L (96-108); Creatinine Clr Calc Pharmacy 123.9; Estimated Glomerular Filt Rate > 60; Glucose Random 105 mg/dL (60-115); Potassium 3.9 mmol/L (3.3-5.1); Sodium 142 mmol/L (135-145); Total Protein 6.6 g/dL (6.5-8.0)
[2022-12-04] MEDS: Acetaminophen 325 MG TABLET 975 MG PO (09:15)
[2022-12-04] MEDS: Butalb/Acetamin/Caff 50/325/40 TABLET 2 TAB PO (09:15)
[2022-12-04] MEDS: 0.9 % Sodium Chloride 1,000 ML 999 ML IV (09:20)
[2022-12-04 09:23] VITALS: BP 133/73; PULSE 75; RESP 13; O2SAT 97
--- NOTE | 2022-12-04 09:33 | ED.GENADULT ---
HPI - General Adult General Chief complaint: Headache Stated complaint: headache , h/o seizures Time Seen by Provider: 12/04/22 08:51 Source: patient Mode of arrival: ambulatory Limitations: no limitations History of Present Illness HPI narrative: 47-year-old female with history of seizures and migraines on Keppra brought to the ED for 2 episodes of seizures. Patient states seizure occurred last night and this morning. Both seizure episodes were witnessed by . Patient takes Keppra twice a day 1000 mg and has not missed a dose as per patient. Patient states her aura before seizures usually a headache, metallic taste. Usually when she gets those auras she than has a seizure which occurred. Patient states after the seizures she she usally also has prolonged headaches. Patient is not on any migraines medications. patient denies any chest pain or shortness of breath. patient presently denies chest symptoms. Patient usually gets 1-2 seizures per month. Patient only complaint is headache. patient denies falling to the ground or hitting head. Patient had both seizure episodes in the bed. states patient had generalized shaking while having seizures Related Data Home Medications Medication Instructions Recorded Confirmed ferrous sulfate 325 mg (65 mg 324 mg PO DAILY 07/25/20 07/10/22 iron) tablet seujmoiaiyop-Am-sbbq-minerals 27 1 tab PO DAILY 07/25/20 07/10/22 mg-0.4 mg tablet (Women's Daily Formula) vitamin B comp and C no.3 15 mg-10 1 cap PO DAILY 07/25/20 07/10/22 mg-50 mg-5 mg-300 mg capsule (B Complex Plus Vitamin C) mecobalamin (vitamin B12) 10,000 mcg IM 12/21/21 07/10/22 mcg solution for injection Previous Rx's Medication Instructions Recorded sertraline 25 mg tablet 25 mg PO DAILY #30 tabs 07/23/20 cholecalciferol (vitamin D3) 25 1 tab PO DAILY #30 tabs 09/10/20 mcg (1,000 unit) tablet (Vitamin D3) clonazepam 2 mg tablet (Klonopin) 2 mg PO BID #14 tabs 11/09/20 risperidone 1 mg tablet (Risperdal) 1 mg PO DAILY PRN anxiety #7 tabs 11/09/20 celecoxib 200 mg capsule (Celebrex) 200 mg PO BID 30 days #60 caps 10/10/21 pyridoxine (vitamin B6) 50 mg 50 mg PO BID 30 days #60 tabs 12/21/21 tablet rimegepant 75 mg disintegrating 75 mg PO Q OTHER DAY PRN migraine 12/29/21 tablet (Nurtec ODT) headache 30 days #16 tabs levetiracetam 500 mg/5 mL (5 mL) 1,000 mg (10 mL) PO BID 30 days 03/17/22 oral solution #600 mL topiramate 50 mg tablet See Rx Instructions PO BID 30 days 04/21/22 #120 tabs diazepam 2 mg tablet 4 mg PO DAILY muscle spasm 15 days 08/04/22 #30 tabs gblorexyqy-yyjyoawlekgni-xaazsmzu 1 cap PO Q6H PRN pain 5 days #20 12/04/22 50 mg-300 mg-40 mg capsule caps (Fioricet) Allergies Allergy/AdvReac Type Severity Reaction Status Date / Time zolmitriptan [From ZOMIG] Allergy Intermediate Migraine Verified 12/04/22 07:59 Review of Systems Review of Systems: Seizure Yes all other systems are reviewed and are negative [facility] Past Medical History Medical History Anemia Asthma Chronic pain syndrome Depression with anxiety Migraine Sacroiliitis Seizure disorder Surgical History Gastric bypass status for obesity History of bilateral breast reduction surgery Tubal ligation status Social History Social History (Updated 07/10/22 @ 13:21 by Minda Serrano CMA) Household Members: Spouse Alcohol intake: never Patient Tobacco Use Status: Never used Tobacco Smoked in Last 30 Days: No Use of substances other than those prescribed or required for medical reasons: No Advance Directives: No Advance Directives Information Provided: No Patient : No Current occupational status: disabled Physical Exam ED Vital Signs: Vital Signs - 24 hr 12/04/22 07:56 12/04/22 08:11 12/04/22 09:23 Temperature 98.2 F Pulse Rate 73 72 75 Respiratory Rate 18 13 13 Blood Pressure 127/76 116/66 133/73 Pulse Oximetry 97 97 97 Oxygen Delivery Method Room Air Room Air Room Air 12/04/22 12:45 Temperature 98.1 F Pulse Rate 80 Respiratory Rate 11 L Blood Pressure 117/56 L Pulse Oximetry 96 Oxygen Delivery Method Room Air BMI result Body Mass Index 30.7 Const General: cooperative, healthy appearing, comfortable, no acute distress, well developed, alert, awake and Physically active Orientation/consciousness: oriented to person, oriented to place, oriented to time and patient oriented x3 HENMT Head: Yes normal to inspection, Yes No palpable skull fracture present, Yes normocephalic, Yes atraumatic and No abrasion Ears: hearing grossly normal bilaterally, external ears normal, TM's normal bilaterally, EAC's normal, mastoids normal and no periauricular adenopathy Mouth: Normal oral and palatal mucosa present and lip normal Eyes General: appearance normal, both eyes and all related structures Neck Neck: Yes normal visual inspection, Yes full ROM, Yes no lymphadenopathy, Yes no meningeal signs, Yes trachea midline, Yes supple, No anterior neck swelling and No tender Chest Chest palpation & inspection: normal inspection of the chest and normal palpation of entire chest wall Resp Effort & Inspection: normal respiratory effort and able to speak in complete sentences Auscultation: clear to auscultation bilaterally Cardio Jugular venous distension: no JVD Heart sounds: S1 normal heart sound present and S2 normal heart sound present GI Inspection: Yes normal to inspection and No abdominal wall ecchymosis Palpation (GI): Soft to palpation, not firm, nontender, no guarding and not rigid General: No CVA tenderness and Yes no CVA tenderness Back/Spine/Pelvis Back: no CVA tenderness, No CVA tenderness and No back tenderness Skin General skin exam: no rashes or lesions noted and elasticity normal Neuro Other: Negative facial droop. Negative slurred speech. Negative pronator drift. All extremities equal strength 5+. Brelzr-xi-xlte rapid head movement intact. Negative Romberg. NIH 0 General: oriented to person, oriented to place, oriented to time, patient oriented x3, gait normal, tone normal, moves all extremities, Normal light touch and pain sensation, no meningeal signs, no focal motor deficits, CN's II-XI intact bilaterally and normal sensation to monofilament Extrem General: Yes normal to inspection and Yes full ROM Psych Appearance: grossly normal, well kempt and not disheveled Course Course Course Narrative: patient presently not postictal. Patient presently stable. Patient usually has 1-2 seizures per month and last night and this morning was the 1ST SEIZURES of the month which is her baseline. labs ordered including magnesium. UA ordered to make sure there is no infection. Reevaluation(s) Reevaluation #1: EKG negative STEMI. First troponin negative. Patient has history of migraines. given Toradol, Fioricet, and lower and Reglan. Negative for any neuro deficits. UA negative for UTI. Electrolytes normal. Fingerstick normal. Patient states having usual headache with aura for seizure and usually have headache after seizure. Head CT scan was discussed with patient but patient refused head CT scan. patient states she is having her usual headache. Discussed with patient head CT scan will be done to make sure there is no new intracranial etiology causing seizure such as bleed or mass but patient refused. patient states she had her normal amounts of seizures for this month and is having her usual headache and would like to be discharged. pATIENT INFORMED OF IF BLEED IN BRAIN. pATIENT STILL WANTS TO BE DISCHARGED. Patient informed to return to the ED immediately if she has another seizure, worsening headache, or any other concerning symptoms. Time: 12:44 Medications Administered Discontinued Medications Generic Name Dose Route Start Last Admin Trade Name Patrickq PRN Reason Stop Dose Admin Acetaminophen 975 mg 12/04/22 09:02 12/04/22 09:15 Acetaminophen 325 Mg Tablet PO 12/04/22 09:03 975 mg ONCE ONE Administration Acetaminophen/Butalbital/Caffeine 2 tab 12/04/22 09:02 12/04/22 09:15 Butalb/Acetamin/Caff 50/325/40 Tablet PO 12/04/22 09:03 2 tab ONCE ONE Administration Sodium Chloride 1,000 mls @ 999 mls/hr 12/04/22 09:12 12/04/22 10:34 Ns IV 12/04/22 10:12 Infused .Q1H1M STA Infusion Ketorolac Tromethamine 15 mg 12/04/22 10:51 12/04/22 11:34 Ketorolac Tromethamine 15 Mg/Ml Vial IVPUSH 12/04/22 10:52 15 mg ONCE ONE Administration Medical Decision Making Medical Decision Making [facility] Narrative: 47 yold female with history of seizure presents to ED for any usual headache migraine with seizure. Negative for any neuro deficits. NIH score is 0. Patient denies any trauma. Patient had seizure in bed. Differential Diagnosis Differential Diagnoses: The differential diagnosis associated with the presentation includes (migraine, seizure, NH, electrolyte defiency, uTI) Admission/Observation Consideration of admission/observation: Escalation of care including admission/observation considered Lab Data [facility] Lab Attestation statement: I reviewed the patient's lab results. 12/04/22 08:46 12/04/22 08:46 Labs: Lab Results 12/04/22 12/04/22 12/04/22 Range/Units 08:46 08:46 09:45 WBC 5.2 (4.8-10.8) X10*3/uL RBC 3.79 L (4.20-5.50) X10*6/uL Hgb 11.6 L (12.0-16.0) g/dl Hct 34.1 L (37.0-47.0) % MCV 90.0 (80.0-98.0) fL MCH 30.6 (27.0-33.0) pg MCHC 34.0 (31.0-35.0) g/dl RDW 11.8 (11.0-16.0) % Plt Count 270 (160-400) X10*3/uL MPV 10.5 (9.4-12.3) fL Immature Gran % (Auto) 0.2 (0.0-0.4) % Neut % (Auto) 66.2 (45-73) % Lymph % (Auto) 26.0 (20-40) % [place] % (Auto) 6.0 (2-11) % Eos % (Auto) 0.4 (0-4) % Baso % (Auto) 1.2 (0-2) % Lymph # (Auto) 1.3 (1.2-4.9) X10*3/uL [place] # (Auto) 0.3 (0.1-1.2) X10*3/uL Eos # (Auto) 0.0 (0.0-0.4) X10*3/uL Baso # (Auto) 0.1 (0.0-0.2) X10*3/uL Abs Immat Gran (auto) 0.01 (0.00-0.03) X10*3/uL Absolute Neuts (auto) 3.4 (2.0-8.3) x10*3/uL Absolute Nucleated RBC 0.000 (0.0-0.012) X10*3/uL Nucleated RBC % (auto) 0.0 (0.0-0.2) /100WBC PT (10.0-13.1) SEC INR (0.9-1.1) APTT (26.0-36.4) SEC Sodium 142 (135-145) mmol/L Potassium 3.9 (3.3-5.1) mmol/L Chloride 109 H (96-108) mmol/L Carbon Dioxide 21 L (22-29) mmol/L Anion Gap 16 (12-20) BUN 8 L (9-16) mg/dL Creatinine 0.65 (0.5-1.4) mg/dL Estim Creat Clear Calc 123.9 Estimated GFR > 60 Random Glucose 105 (60-115) mg/dL Calcium 9.2 D (8.4-10.2) mg/dL Magnesium 1.7 (1.6-2.6) mg/dL Total Bilirubin 0.7 (0.0-1.0) mg/dL AST 15 (5-31) U/L ALT 12 (0-31) U/L Alkaline Phosphatase 79 (39-117) U/L Troponin I High Sens (<3.5-17.0) ng/L Total Protein 6.6 (6.5-8.0) g/dL Albumin 3.9 (3.5-5.0) g/dL Beta HCG, Quant < 2 mIU/mL Urine Color Yellow Urine Appearance Cloudy Urine pH 8.5 (5.0-9.0) Ur Specific [place] 1.010 (1.005-1.025) Urine Protein Negative (Neg-Trace) mg/dL Urine Glucose (UA) Negative (Negative) mg/dL Urine Ketones Negative (Negative) mg/dL Urine Blood Negative (Negative) Urine Nitrite Negative (Negative) Ur Leukocyte Esterase Negative (Negative) 12/04/22 12/04/22 12/04/22 Range/Units 09:53 09:53 12:43 WBC (4.8-10.8) X10*3/uL RBC (4.20-5.50) X10*6/uL Hgb (12.0-16.0) g/dl Hct (37.0-47.0) % MCV (80.0-98.0) fL MCH (27.0-33.0) pg MCHC (31.0-35.0) g/dl RDW (11.0-16.0) % Plt Count (160-400) X10*3/uL MPV (9.4-12.3) fL Immature Gran % (Auto) (0.0-0.4) % Neut % (Auto) (45-73) % Lymph % (Auto) (20-40) % [place] % (Auto) (2-11) % Eos % (Auto) (0-4) % Baso % (Auto) (0-2) % Lymph # (Auto) (1.2-4.9) X10*3/uL [place] # (Auto) (0.1-1.2) X10*3/uL Eos # (Auto) (0.0-0.4) X10*3/uL Baso # (Auto) (0.0-0.2) X10*3/uL Abs Immat Gran (auto) (0.00-0.03) X10*3/uL Absolute Neuts (auto) (2.0-8.3) x10*3/uL Absolute Nucleated RBC (0.0-0.012) X10*3/uL Nucleated RBC % (auto) (0.0-0.2) /100WBC PT 13.6 H (10.0-13.1) SEC INR 1.2 H (0.9-1.1) APTT 28.6 (26.0-36.4) SEC Sodium (135-145) mmol/L Potassium (3.3-5.1) mmol/L Chloride (96-108) mmol/L Carbon Dioxide (22-29) mmol/L Anion Gap (12-20) BUN (9-16) mg/dL Creatinine (0.5-1.4) mg/dL Estim Creat Clear Calc Estimated GFR Random Glucose (60-115) mg/dL Calcium (8.4-10.2) mg/dL Magnesium (1.6-2.6) mg/dL Total Bilirubin (0.0-1.0) mg/dL AST (5-31) U/L ALT (0-31) U/L Alkaline Phosphatase (39-117) U/L Troponin I High Sens < 3.5 < 3.5 (<3.5-17.0) ng/L Total Protein (6.5-8.0) g/dL Albumin (3.5-5.0) g/dL Beta HCG, Quant mIU/mL Urine Color Urine Appearance Urine pH (5.0-9.0) Ur Specific [place] (1.005-1.025) Urine Protein (Neg-Trace) mg/dL Urine Glucose (UA) (Negative) mg/dL Urine Ketones (Negative) mg/dL Urine Blood (Negative) Urine Nitrite (Negative) Ur Leukocyte Esterase (Negative) Independent Interpretation Interpretation: NORMAL SINUS RHYTHM. NORMAL EKG. VENTRICULAR RATE 79. . UNDER 150. CARE AT 76. QTC 463. NEGATIVE STEMI Prescription Management I considered prescription management with: Pain Medication Discharge Plan Discharge Clinical Impression: Seizure, Migraine headache with aura Patient Disposition: Home, Self-Care Instructions: Migraine Headache (ED), Recurrent Seizures in Adults (ED), General Headache (ED) Additional Instructions: Your blood work EKG and urine came back normal. Please follow-up with your primary care provider. Return to the ED immediately for another seizure episode, fever, chills, abdominal pain, neck pain, worsening headache, photophobia, blurry vision, dizziness, chest pain, shortness of breath, dysuria, hematuria, or any other concerning symptoms. Continue also taking celebrex for pain. Prescriptions: New vmnjfyhqsy-uljinpmfgffso-qdaq [Fioricet] 50-300-40 mg capsule 1 cap PO Q6H PRN (Reason: pain) 5 Days Qty: 20 0RF No Action Nurtec ODT 75 mg tablet,disintegrating 75 mg PO Q OTHER DAY PRN (Reason: migraine headache) 30 Days Qty: 16 6RF Rx Instructions: dissolve under tongue levetiracetam 500 mg/5 mL (5 mL) solution 1,000 mg PO BID 30 Days Qty: 600 6RF diazepam 2 mg tablet 4 mg PO DAILY 15 Days Qty: 30 2RF sertraline 25 mg tablet 25 mg PO DAILY Qty: 30 2RF ferrous sulfate 325 mg (65 mg iron) tablet 324 mg PO DAILY Women's Daily Formula 27-0.4 mg tablet 1 tab PO DAILY B Complex Plus Vitamin C 51-55-47-5-300 mg capsule 1 cap PO DAILY cholecalciferol (vitamin D3) [Vitamin D3] 25 mcg (1,000 unit) tablet 1 tab PO DAILY Qty: 30 2RF clonazepam [Klonopin] 2 mg tablet 2 mg PO BID Qty: 14 4RF risperidone [Risperdal] 1 mg tablet 1 mg PO DAILY PRN (Reason: anxiety) Qty: 7 4RF mecobalamin (vitamin B12) 10,000 mcg recon soln IM pyridoxine (vitamin B6) 50 mg tablet 50 mg PO BID 30 Days Qty: 60 6RF celecoxib [Celebrex] 200 mg capsule 200 mg PO BID 30 Days Qty: 60 5RF topiramate 50 mg tablet See Rx Instructions PO BID 30 Days Qty: 120 3RF Rx Instructions: 1.5 tabs bid x's 2 weeks, then 2 tabs bid orally 2 times a day; Stand Alone Forms: Work/School Release Interventions: ED Discharge Assessment Last Done: 12/04/22 14:26 Discharge Date/Time: 12/04/22 14:26 Print Language: Ukrainian
--- NOTE | 2022-12-04 09:44 | ECG_ITS ---
Test Reason : seizure Blood Pressure : / mmHG Vent. Rate : 079 BPM Atrial Rate : 079 BPM P-R Int : 150 ms QRS Dur : 076 ms QT Int : 404 ms P-R-T Axes : 033 055 039 degrees QTc Int : 463 ms Normal sinus rhythm Normal ECG When compared with ECG of 16-AUG-2020 19:34, No significant change was found Referred By: Con Allison Electronically Signed By:Beto Fleming
[2022-12-04 09:49] LABS: HCG Quantitative < 2 mIU/mL; Magnesium 1.7 mg/dL (1.6-2.6)
[2022-12-04 10:04] LABS: Appearance Urine Cloudy; Color Urine Yellow; Glucose Urine UA Negative (Negative); Leukocyte Esterase Urine Negative (Negative); Nitrite Urine Negative (Negative); PH 8.5 (5.0-9.0); Urine Blood Negative (Negative); Urine Ketones Negative (Negative); Urine Protein Negative (Neg-Trace)
[2022-12-04 10:06] LABS: INTERNATIONAL NORM RATIO 1.2 (0.9-1.1); Prothrombin Time 13.6 SEC (10.0-13.1)
[2022-12-04 10:08] LABS: Partial Thromboplastin Time 28.6 SEC (26.0-36.4)
[2022-12-04 10:20] LABS: Troponin-I High Sensitivity < 3.5 ng/L (<3.5-17.0)
[2022-12-04] MEDS: Ketorolac Tromethamine 15 MG/ML VIAL IVPUSH (11:34)
[2022-12-04 12:45] VITALS: BP 117/56; PULSE 80; RESP 11; TEMP 36.7; O2SAT 96
[2022-12-04 13:15] LABS: Troponin-I High Sensitivity < 3.5 ng/L (<3.5-17.0)
[2022-12-07 15:29] LABS: Levetiracetam Keppra <2.0 mcg/mL (6.0-46.0)
== END 2022-12-04 14:26 | disposition home or self-care (01) ==
PROVIDERS: Physician Assistant; Emergency Provider Student in an Organized Health Care Education/Training Program
DX: R56.9 Unspecified convulsions (principal); G43.109 Migraine with aura, not intractable, without status migrainosus; Z79.899 Other long term (current) drug therapy
CPT/HCPCS: 36415; 80053; 80177; 81003; 83735; 84484; 84702; 85025; 85610; 85730; 93005; 96361; 96374; 99284; 99285; J1885

== ENCOUNTER 2022-12-29 20:24 | Emergency (ER) | payer OTHER, SELFPAY ==
[2022-12-29 20:44] VITALS: BP 100/59; PULSE 75; RESP 18; TEMP 36.7; O2SAT 97; BMI 32.1
--- NOTE | 2022-12-29 20:48 | ECG_ITS ---
Test Reason : SIEZURES Blood Pressure : / mmHG Vent. Rate : 072 BPM Atrial Rate : 072 BPM P-R Int : 144 ms QRS Dur : 076 ms QT Int : 416 ms P-R-T Axes : 028 024 021 degrees QTc Int : 455 ms Normal sinus rhythm Normal ECG When compared with ECG of 04-DEC-2022 10:06, No significant change was found Referred By: Generic ED Physician Electronically Signed By:Beto Fleming
[2022-12-29 21:07] LABS: MANUAL DIFF FLAG NO
[2022-12-29 21:22] LABS: Basophils Absolute Auto 0.1 X10*3/uL (0.0-0.2); Basophils Percent Auto 0.8 % (0-2); Eosinophils Absolute Auto 0.1 X10*3/uL (0.0-0.4); Eosinophils Percent Auto 0.9 % (0-4); Hematocrit 36.7 % (37.0-47.0); Hemoglobin 12.4 g/dl (12.0-16.0); Imm Gran Abs Auto 0.01 X10*3/uL (0.00-0.03); Imm Gran Pct Auto 0.1 % (0.0-0.4); Lymphocytes Absolute Auto 2.6 X10*3/uL (1.2-4.9); Lymphocytes Percent Auto 34.4 % (20-40); Mean Corpuscular HGB Conc 33.8 g/dl (31.0-35.0); Mean Corpuscular Volume 88.6 fL (80.0-98.0); Mean Platelet Volume 10.5 fL (9.4-12.3); Monocytes Absolute Auto 0.5 X10*3/uL (0.1-1.2); Monocytes Percent Auto 7.1 % (2-11); Neutrophils Absolute Auto 4.2 x10*3/uL (2.0-8.3); Neutrophils Percent Auto 56.7 % (45-73); Platelet Count 274 X10*3/uL (160-400); Red Blood Count 4.14 X10*6/uL (4.20-5.50); Red Cell Distribution Width 11.4 % (11.0-16.0); White Blood Count 7.5 X10*3/uL (4.8-10.8)
[2022-12-29 21:25] LABS: Alanine Aminotransferase 14 U/L (0-31); Albumin Level 4.2 g/dL (3.5-5.0); Alkaline Phosphatase 88 U/L (39-117); Anion Gap 14 (12-20); Aspartate Amino Transferase 18 U/L (5-31); Bilirubin Total 0.3 mg/dL (0.0-1.0); Blood Urea Nitrogen 15 mg/dL (9-16); Calcium 9.4 mg/dL (8.4-10.2); Carbon Dioxide 25 mmol/L (22-29); Chloride 110 mmol/L (96-108); Creatinine Clr Calc Pharmacy 92.6; Estimated Glomerular Filt Rate > 60; Glucose Random 100 mg/dL (60-115); Potassium 4.2 mmol/L (3.3-5.1); Sodium 145 mmol/L (135-145)
[2022-12-29 21:32] LABS: Troponin-I High Sensitivity < 2.7 ng/L (<3.5-17.0)
--- NOTE | 2022-12-29 22:41 | ED.GENADULT ---
HPI - General Adult General Chief complaint: General Medical Stated complaint: seizures, recurring Chest pain Time Seen by Provider: 12/29/22 22:40 Source: patient and RN notes reviewed Mode of arrival: ambulatory Limitations: no limitations History of Present Illness HPI narrative: 47-year-old female with past medical history significant for seizure disorder maintained on Keppra, migraine headaches, chronic pain syndrome, arthritis presents for evaluation of a headache. Patient reports that she had a seizure on Sunday and . She states these were unwitnessed. She states that she did not, the hospital at the time because ?I was too tired. ? She states that she has not had any seizures today She reports that her neurologist recently increased her Keppra from 1 g b.i.d. to 1 g t.i.d. She sees a neurologist at the end of this month Patient complains of a frontal headache which is 10/10. She states that she always has this when she has her seizures Did the patient also complains of 10/10 chest pain She denies any history of coronary artery disease Patient was seen here a little less than 1 month ago for similar complaints of headache and seizure Related Data Home Medications Medication Instructions Recorded Confirmed ferrous sulfate 325 mg (65 mg 324 mg PO DAILY 07/25/20 07/10/22 iron) tablet smcpqdsjgxzy-[place]-minerals 27 1 tab PO DAILY 07/25/20 07/10/22 mg-0.4 mg tablet (Women's Daily Formula) vitamin B comp and C no.3 15 mg-10 1 cap PO DAILY 07/25/20 07/10/22 mg-50 mg-5 mg-300 mg capsule (B Complex Plus Vitamin C) mecobalamin (vitamin B12) 10,000 mcg IM 12/21/21 07/10/22 mcg solution for injection Previous Rx's Medication Instructions Recorded sertraline 25 mg tablet 25 mg PO DAILY #30 tabs 07/23/20 cholecalciferol (vitamin D3) 25 1 tab PO DAILY #30 tabs 09/10/20 mcg (1,000 unit) tablet (Vitamin D3) clonazepam 2 mg tablet (Klonopin) 2 mg PO BID #14 tabs 11/09/20 risperidone 1 mg tablet (Risperdal) 1 mg PO DAILY PRN anxiety #7 tabs 11/09/20 celecoxib 200 mg capsule (Celebrex) 200 mg PO BID 30 days #60 caps 10/10/21 pyridoxine (vitamin B6) 50 mg 50 mg PO BID 30 days #60 tabs 12/21/21 tablet rimegepant 75 mg disintegrating 75 mg PO Q OTHER DAY PRN migraine 12/29/21 tablet (Nurtec ODT) headache 30 days #16 tabs topiramate 50 mg tablet See Rx Instructions PO BID 30 days 04/21/22 #120 tabs diazepam 2 mg tablet 4 mg PO DAILY muscle spasm 15 days 08/04/22 #30 tabs bvimmgwlwp-hqpplcszpulaz-zbigimzj 1 cap PO Q6H PRN pain 5 days #20 12/04/22 50 mg-300 mg-40 mg capsule caps (Fioricet) levetiracetam 500 mg/5 mL (5 mL) 1,000 mg (10 mL) PO BID 30 days 12/13/22 oral solution #600 mL Allergies Allergy/AdvReac Type Severity Reaction Status Date / Time zolmitriptan [From ZOMIG] Allergy Intermediate Migraine Verified 12/29/22 20:47 Review of Systems Constitutional: Constitutional: Reports as per HPI, Denies chills, Denies fatigue, Denies fever(s) and Reports headache(s) ENT: Reports headache(s) Cardiovascular: Cardiovascular: Reports chest pain and Denies dyspnea Respiratory: Respiratory: Denies cough and Denies dyspnea Gastrointestinal: Gastrointestinal: Denies abdominal pain, Denies constipation and Denies vomiting Genitourinary: Genitourinary: Denies dysuria Neurologic: Reports headache(s), Denies focal weakness and Reports seizure-like activity Endocrine: Endocrine: Denies fatigue [facility] Past Medical History Medical History Anemia Asthma Chronic pain syndrome Depression with anxiety Migraine Sacroiliitis Seizure disorder Surgical History Gastric bypass status for obesity History of bilateral breast reduction surgery Tubal ligation status Social History Social History (Updated 07/10/22 @ 13:21 by Minda Serrano CMA) Household Members: Spouse Alcohol intake: never Patient Tobacco Use Status: Never used Tobacco Advance Directives: No Advance Directives Information Provided: No Current occupational status: disabled Physical Exam ED Vital Signs: Vital Signs - 24 hr 04/07/23 20:44 Temperature 98.1 F Pulse Rate 75 Respiratory Rate 18 Blood Pressure 100/59 L Pulse Oximetry 97 Oxygen Delivery Method Room Air BMI result Body Mass Index 32.1 Const General: healthy appearing, comfortable, no acute distress, alert and awake Nutritional Appearance: well nourished Orientation/consciousness: patient oriented x3 HENMT Head: Yes normocephalic and Yes atraumatic Throat: Yes posterior oropharynx normal Eyes Eyelids: Yes eyelids normal Conjunctivae: conjunctivae normal Sclerae: sclerae normal Corneas: corneas normal Pupils: Equal, round and reactive pupils present EOM: EOMs intact bilaterally Neck Neck: Yes full ROM Resp Effort & Inspection: normal respiratory effort, able to speak in complete sentences, no audible wheezes and not labored Auscultation: clear to auscultation bilaterally Cardio Rate: regular rate Rhythm: regular rhythm GI Inspection: No distended Palpation (GI): Soft to palpation, not firm, nontender, no guarding and not rigid Auscultation: normoactive bowel sounds Skin General skin exam: no rashes or lesions noted and elasticity normal Neuro General: patient oriented x3 Cranial nerves: Yes CN's II-XII intact bilaterally, Yes Equal, round and reactive pupils present and Yes Bilaterally intact EOM present Cognition (Neuro): normal cognition Gait exam (Neuro): Normal gait present Coordination: aoujbi-jb-pqkg test normal, wnrx-nw-pkfi test normal and Romberg test negative Extrem Other: Moving all extremities well without any obvious deformities Course Reevaluation(s) Reevaluation #1: Patient reports feeling much better, she remains neurologically intact, there has been no seizure-like activity while in the emergency department she is stable for discharge Time: 00:46 Medications Administered Discontinued Medications Generic Name Dose Route Start Last Admin Trade Name Freq PRN Reason Stop Dose Admin Diphenhydramine HCl 25 mg 12/29/22 22:53 12/29/22 23:09 Diphenhydramine Hcl 50 Mg/Ml Vial IVPUSH 12/29/22 22:54 25 mg ONCE ONE Administration Sodium Chloride 1,000 mls @ 999 mls/hr 12/29/22 23:00 12/30/22 00:11 Ns IV 12/30/22 00:00 Infused .Q1H1M SUSAN Infusion Ketorolac Tromethamine 30 mg 12/29/22 22:53 12/29/22 23:09 Ketorolac Tromethamine 30 Mg/Ml Vial IVPUSH 12/29/22 22:54 30 mg ONCE ONE Administration Metoclopramide HCl 10 mg 12/29/22 22:53 12/29/22 23:09 Metoclopramide Hcl 10 Mg/2 Ml Vial IVPUSH 12/29/22 22:54 10 mg ONCE ONE Administration Medical Decision Making Medical Decision Making [facility] Narrative: Patient is seen and evaluated, she is currently at her baseline, awake alert and oriented. She is not postictal whatsoever. She reports that she has not had a seizure today and she states that she usually gets 2 or 3 per month. Her neurologist increased her Keppra after her last visit 2 3 your total per day. The patient reports that she has not missed any doses. Patient has no neurologic deficits, did not see any indication for emergent imaging at this time. Will treat the patient with Toradol, Reglan, fluids, Benadryl. Patient's labs are reassuring, I did add on a prolactin, magnesium and Keppra level. Differential Diagnosis Seizure disorder Medication noncompliance Headache Migraine headache Metabolic abnormality Lab Data [facility] Lab Attestation statement: I reviewed the patient's lab results. No significant abnormalities 12/29/22 20:57 12/29/22 20:57 Labs: Lab Results 12/29/22 12/29/22 12/29/22 Range/Units 20:56 20:57 20:57 WBC 7.5 (4.8-10.8) X10*3/uL RBC 4.14 L (4.20-5.50) X10*6/uL Hgb 12.4 (12.0-16.0) g/dl Hct 36.7 L (37.0-47.0) % MCV 88.6 (80.0-98.0) fL MCH 30.0 (27.0-33.0) pg MCHC 33.8 (31.0-35.0) g/dl RDW 11.4 (11.0-16.0) % Plt Count 274 (160-400) X10*3/uL MPV 10.5 (9.4-12.3) fL Immature Gran % (Auto) 0.1 (0.0-0.4) % Neut % (Auto) 56.7 (45-73) % Lymph % (Auto) 34.4 (20-40) % [place] % (Auto) 7.1 (2-11) % Eos % (Auto) 0.9 (0-4) % Baso % (Auto) 0.8 (0-2) % Lymph # (Auto) 2.6 (1.2-4.9) X10*3/uL [place] # (Auto) 0.5 (0.1-1.2) X10*3/uL Eos # (Auto) 0.1 (0.0-0.4) X10*3/uL Baso # (Auto) 0.1 (0.0-0.2) X10*3/uL Abs Immat Gran (auto) 0.01 (0.00-0.03) X10*3/uL Absolute Neuts (auto) 4.2 (2.0-8.3) x10*3/uL Absolute Nucleated RBC 0.000 (0.0-0.012) X10*3/uL Nucleated RBC % (auto) 0.0 (0.0-0.2) /100WBC Sodium 145 (135-145) mmol/L Potassium 4.2 (3.3-5.1) mmol/L Chloride 110 H (96-108) mmol/L Carbon Dioxide 25 (22-29) mmol/L Anion Gap 14 (12-20) BUN 15 (9-16) mg/dL Creatinine 0.86 (0.5-1.4) mg/dL Estim Creat Clear Calc 92.6 Estimated GFR > 60 Random Glucose 100 (60-115) mg/dL Calcium 9.4 (8.4-10.2) mg/dL Magnesium 2.0 (1.6-2.6) mg/dL Total Bilirubin 0.3 (0.0-1.0) mg/dL AST 18 (5-31) U/L ALT 14 (0-31) U/L Alkaline Phosphatase 88 (39-117) U/L Troponin I High Sens < 2.7 (<3.5-17.0) ng/L Total Protein 7.0 (6.5-8.0) g/dL Albumin 4.2 (3.5-5.0) g/dL Independent Interpretation I performed an independent interpretation of an: EKG (Sinus rhythm without any ST segment elevation or depressions) Discharge Plan Discharge Clinical Impression: Headache Patient Disposition: Home, Self-Care Instructions: Acute Headache (ED) Additional Instructions: Take all your medications as prescribed and follow-up with the neurologist as planned Prescriptions: No Action Nurtec ODT 75 mg tablet,disintegrating 75 mg PO Q OTHER DAY PRN (Reason: migraine headache) 30 Days Qty: 16 6RF Rx Instructions: dissolve under tongue diazepam 2 mg tablet 4 mg PO DAILY 15 Days Qty: 30 2RF levetiracetam 500 mg/5 mL (5 mL) solution 1,000 mg PO BID 30 Days Qty: 600 6RF sertraline 25 mg tablet 25 mg PO DAILY Qty: 30 2RF ferrous sulfate 325 mg (65 mg iron) tablet 324 mg PO DAILY Women's Daily Formula 27-0.4 mg tablet 1 tab PO DAILY B Complex Plus Vitamin C 95-87-31-5-300 mg capsule 1 cap PO DAILY cholecalciferol (vitamin D3) [Vitamin D3] 25 mcg (1,000 unit) tablet 1 tab PO DAILY Qty: 30 2RF clonazepam [Klonopin] 2 mg tablet 2 mg PO BID Qty: 14 4RF risperidone [Risperdal] 1 mg tablet 1 mg PO DAILY PRN (Reason: anxiety) Qty: 7 4RF rteyzudzxq-yqdrwsqyvxvle-dzbe [Fioricet] 50-300-40 mg capsule 1 cap PO Q6H PRN (Reason: pain) 5 Days Qty: 20 0RF mecobalamin (vitamin B12) 10,000 mcg recon soln IM pyridoxine (vitamin B6) 50 mg tablet 50 mg PO BID 30 Days Qty: 60 6RF celecoxib [Celebrex] 200 mg capsule 200 mg PO BID 30 Days Qty: 60 5RF topiramate 50 mg tablet See Rx Instructions PO BID 30 Days Qty: 120 3RF Rx Instructions: 1.5 tabs bid x's 2 weeks, then 2 tabs bid orally 2 times a day;
[2022-12-29] MEDS: Metoclopramide HCl 10 MG/2 ML VIAL IVPUSH (23:09)
[2022-12-29] MEDS: Ketorolac Tromethamine 30 MG/ML VIAL IVPUSH (23:09)
[2022-12-29] MEDS: 0.9 % Sodium Chloride 1,000 ML 999 ML IV (23:09)
[2022-12-29] MEDS: diphenhydrAMINE HCL 50 MG/ML VIAL 25 MG IVPUSH (23:09)
[2023-01-02 21:58] LABS: Levetiracetam Keppra <2.0 mcg/mL (6.0-46.0)
== END 2022-12-30 00:51 | disposition home or self-care (01) ==
PROVIDERS: Physician Assistant; Emergency Provider Emergency Medicine; PCP Internal Medicine
DX: R07.89 Other chest pain (principal); R51.9 Headache, unspecified; R56.9 Unspecified convulsions; Z79.899 Other long term (current) drug therapy
CPT/HCPCS: 36415; 80053; 80177; 83735; 84146; 84484; 85025; 93005; 96361; 96374; 96375; 99284; J1200; J1885; J2765

== ENCOUNTER → 2023-01-09 07:36 | Outpatient (BNVA) | payer OTHER, SELFPAY | PROVIDERS: PCP Internal Medicine; Visit Provider Nurse Practitioner Family | DX: G40.909 Epilepsy, unspecified, not intractable, without status epilepticus (principal); G43.909 Migraine, unspecified, not intractable, without status migrainosus | CPT/HCPCS: 99212 ==

== ENCOUNTER → 2023-02-05 09:21 | Outpatient (BNVA) | payer OTHER, SELFPAY | PROVIDERS: PCP Internal Medicine; Visit Provider Nurse Practitioner Family | DX: G40.909 Epilepsy, unspecified, not intractable, without status epilepticus (principal); G43.909 Migraine, unspecified, not intractable, without status migrainosus; G25.79 Other drug induced movement disorders | CPT/HCPCS: 99212 ==

== ENCOUNTER 2023-04-10 13:06 | Outpatient (AMB) | payer OTHER, SELFPAY ==
[2023-04-10 13:07] VITALS: BP 100/62; PULSE 72; O2SAT 97; BMI 30.6
--- NOTE | 2023-04-10 13:07 | A.OFFVIS_ITS ---
Intake Vital Signs 04/10/23 13:07 Height 5 ft 7 in Weight 195 lb 4 oz BMI 30.6 BP 100/62 Blood Pressure Location Lt brachial Position Sitting Pulse 72 Pulse Source Pulse Oximeter Pulse Oximetry (%) 97 Oxygen Delivery Method Room Air Intake Visit Reasons: 3m follow up seizures Intake Note: Pt presents as a 3m f/u for seizures. Sunday night to Sunday morning I had a seizure. Consumer Loan Specialist Required: No Allergies zolmitriptan [From ZOMIG] Allergy (Intermediate, Verified 04/10/23 13:12) Migraine Medication List - Last Reconciled 04/10/23 by JERRI Hayes goutastozu-vvbwvxyqzptve-tfju 50-325-40 mg 1 tab PO Q4H PRN 7 days cholecalciferol (vitamin D3) (Vitamin D3) 1 tab PO DAILY clonazepam 1 mg PO BEDTIME PRN diphenhydramine HCl (Allergy (diphenhydramine)) 25 - 50 mg (1 - 2 x 25 mg) PO Q4-6H PRN 14 days ferrous sulfate 324 mg PO DAILY levetiracetam 500 mg (5 mL) PO BID 30 days mecobalamin (vitamin B12) mcg IM metoclopramide HCl 5 - 10 mg (1 - 2 x 5 mg) PO Q4-6H PRN 14 days rrzexcsllxhu-Xf-kipl-minerals (Women's Daily Formula) 1 tab PO DAILY omeprazole 40 mg PO DAILY onabotulinumtoxinA (Botox) 200 units IM ONCE 12 weeks ondansetron 8 mg PO Q8H PRN 14 days propranolol 10 mg PO BID 30 days pyridoxine (vitamin B6) 50 mg PO BID 30 days sertraline 100 mg PO DAILY topiramate 1 bid x's 2 weeks, then 2 tabs bid orally 2 times a day; 30 days ubrogepant (Ubrelvy) 50 - 100 mg (0.5 - 1 x 100 mg) PO ONCE PRN 30 days vitamin B comp and C no.3 (B Complex Plus Vitamin C) 1 cap PO DAILY HPI HPI Comments History of Present Illness Details 48-yr-old female presents for f/u visit. Pt reports her headaches were increased towards the end of February. Then they subsided some in early March. Having at least 15 headache days per month. She then started having more headaches, insomnia, and feeling depression and anxiety. Then this past Sunday night- she went to bed around 8pm- when she had an unwitnessed bad seizure. Afterwards, she had difficulty talking to her and he felt her eyes were not tracking normally. On Sunday, she felt very sick and tired. On Sunday, she thinks she may have had a mild seizure episode. Since, she is noticing more neck tightness and tension- she is not sure if this is due to the headaches or the seizure s/s. She is compliant w/ Keppra. She stopped Topiramate 200mg bid in March- she ran out of refills as we previously suggested stopping it. She is taking the Propranolol- helps w/ the chest tightness. She is not regularly taking Sertraline- did not take at all in February- this suppresses her appetite which she feel may be triggering her migraine attacks. She stopped the Amitriptyline awhile ago. Using Fioricet sparingly. Also using Ubrlevy- which is helpful. Sample trial of [place] was helpful. ON LICENSE OF [facility] Medical History (Updated 04/10/23 @ 14:05 by JERRI Hayes) Anemia Asthma Chronic pain syndrome Depression with anxiety Migraine Sacroiliitis Seizure disorder Surgical History Gastric bypass status for obesity History of bilateral breast reduction surgery Tubal ligation status Family History Mother Heart problem Social History (Updated 04/10/23 @ 13:17 by Telma Ellis CMA) Household Members: Spouse Alcohol intake: never Patient Tobacco Use Status: Never used Tobacco Current occupational status: disabled Review of Systems Const All systems reviewed & are unremarkable except as noted in HPI and below Eyes Reports blind spots Physical Exam Vital Signs: Last Vital Signs Pulse 72 04/10/23 13:07 BP 100/62 04/10/23 13:07 Pulse Ox 97 04/10/23 13:07 Oxygen Delivery Method Room Air 04/10/23 13:07 BMI result Body Mass Index 30.6 Const General: cooperative and no acute distress Orientation/consciousness: patient oriented x3 HEENT Head: Yes normocephalic Resp Effort & Inspection: normal respiratory effort and able to speak in complete sentences Neuro General: patient oriented x3, gait normal and CN's II-XI intact bilaterally Cognition (Neuro): normal cognition Motor exam (neuro): 5/5 motor strength present throughout Psych Appearance: grossly normal Mental Status: mental status grossly normal Speech and movement: Normal speech and movement present Affect: normal affect Attitude: cooperative Thought process: Normal thought process present Thought content: Normal thought content present Insight: Good insight present (Psych) Judgement: Good judgement present (Psych) Assessment & Plan Assessment & Plan (1) Chronic migraine without aura: Code(s): G43.709 - Chronic migraine without aura, not intractable, without status migrainosus (2) Seizure disorder: Code(s): G40.909 - Epilepsy, unspecified, not intractable, without status epilepticus Plan For sieuzre activity: Continue Keppra 500mg bid. Continue vitamin B6 50 mg b.i.d. Clonazepam as needed For migraine prevention: Start Botox 155 units IM q 12 weeks. May resume Topiramate 200mg bid- ? if stopping resulted in breakthrough seizure activity. Amitriptyline stopped- note pt had stopped > 1 month ago. Continue Propranolol 10mg bid- would not increase further due to low BP and lightheadedness. Continue Sertraline- pt is not interested in trying alternate at this time. Tried Cymbalat before- not tolerated. Previous migarine tx's: Amitriptyline- stopped d/t recent ? serotonin syndrome. For acute headache tx: Continue Benadryl, Zofran, Reglan prn. Ubrelvy 100mg tab- ? - 1 tab at onset of headache, may repeat in 2 hrs (max of 2 tabs per day), May take w/ Tylenol, Naproxen, or Ibuprofen May use Fioricet prn for rescue. Previous acute migarine tx's: Nurtec- ineffective. Patient has a contraindication to triptans, has had a rash reaction to the zolmitriptan. f/u in 3 months or sooner prn. Medications: New onabotulinumtoxinA (Botox) inject 155 units IM across forehead, scalp, and neck 200 units IM ONCE 1 ea 3RF 12 weeks G43.709 - Chronic migraine without aura, not intractable, without status migrainosus Changed From topiramate 1.5 tabvs bid x's 2 weeks, then 2 tabs bid orally 2 times a day; 120 tabs 3RF 30 days To topiramate 1 bid x's 2 weeks, then 2 tabs bid orally 2 times a day; 120 tabs 3RF 30 days Coding Level of Care Code Est Pt Level 4 (19818) Diagnoses Chronic migraine without aura G43.709 Seizure disorder G40.909
== END 2023-04-10 14:01 | disposition home or self-care (01) ==
PROVIDERS: Visit Provider Nurse Practitioner Family
DX: G43.709 Chronic migraine without aura, not intractable, without status migrainosus (principal); G40.909 Epilepsy, unspecified, not intractable, without status epilepticus
CPT/HCPCS: 99214

== ENCOUNTER → 2023-04-10 13:06 | Outpatient (BNVA) | payer OTHER, SELFPAY | PROVIDERS: Visit Provider Nurse Practitioner Family | DX: G40.909 Epilepsy, unspecified, not intractable, without status epilepticus (principal); G43.709 Chronic migraine without aura, not intractable, without status migrainosus | CPT/HCPCS: 99212 ==

== ENCOUNTER 2023-05-10 07:50 | Outpatient (AMB) | payer OTHER, SELFPAY ==
--- NOTE | 2023-05-10 07:53 | A.OFFVIS_ITS ---
Intake Vital Signs 05/10/23 07:59 Weight 194 lb 6 oz BP 120/86 Blood Pressure Location Lt brachial Position Sitting Pulse 72 Pulse Source Pulse Oximeter Pulse Oximetry (%) 97 Oxygen Delivery Method Room Air Intake Visit Reasons: Botox-confirmed Intake Note: Botox Injection Quill Skinner Required: No Allergies zolmitriptan [From ZOMIG] Allergy (Intermediate, Verified 05/10/23 07:53) Migraine HPI HPI Comments History of Present Illness Details ? 48y/o female comes for treatment of migraines with botox.she has 20 migraine days a month and uses tylenol or excedrin migraine she did not tolerate sumatriptan, poor response to ubrelvy ??? Most frequent reported adverse reactions following injection of botox for chronic migraine include neck pain (9%), headache(5%), eyelid ptosis(4%), migraine(4%), muscular weakness(4%), musculuskeletal stiffness(4%), bronchitis(3%), injection site pain (3%), musculoskeletal pain(3%), myalgia(3%), facial paresis(2%), HTN(2%) and muscle spasms(2%) were discussed in detail. ??? Botulinum toxin typeA 200units Lot no [id number] expiration February 2024 was diluted with 4 cc of normal saline . ??? Muscles injected- ??? Frontalis 4 sites ??? Procerus 1 site ??? Supply Chain Assistant- 2 sites ??? Temporalis- 8 sites ??? Occipitalis- 6 sites ??? Cervical paraspinals- 4 sites ??? Trapezius- 6 sites- 10 units each ??? 5 units each in 31 site ??? Total use- 185units ??? Discarded-15units [facility] Medical History Anemia Asthma Chronic pain syndrome Depression with anxiety Migraine Sacroiliitis Seizure disorder Surgical History Gastric bypass status for obesity History of bilateral breast reduction surgery Tubal ligation status Family History Mother Heart problem Social History Household Members: Spouse Alcohol intake: never Patient Tobacco Use Status: Never used Tobacco Current occupational status: disabled Physical Exam Vital Signs: Last Vital Signs Pulse 72 05/10/23 07:59 BP 120/86 05/10/23 07:59 Pulse Ox 97 05/10/23 07:59 Oxygen Delivery Method Room Air 05/10/23 07:59 Office Procedures Botulinum toxin Injection 96613 - Migraine Procedure code (CPT) selection complete Office Meds onabotulinumtoxinA Performing Provider: Gill Bonds MD Administered by: Gill Bonds MD on 05/10/23 08:34 Dose Route Admin Location Lot Number Expiration Date [place] Vegetable Thinner 185 unit subcut [id number] 10/25/25 3926-3330-32 ALLERGAN/BOTOX Comments: see hpi Assessment & Plan Assessment & Plan (1) Chronic migraine without aura: Code(s): G43.709 - Chronic migraine without aura, not intractable, without status migrainosus Plan Patient tolerated the procedure well SHe will call with any side effects. Orders: Orders AMB Botulinum toxin Injection - Patient Supplied Today G43.709 - Chronic migraine without aura, not intractable, without status migrainosus Coding Level of Care Code Est Pt Level 1 (95747) Diagnoses Chronic migraine without aura G43.709 CPT Codes Botox Injection - Botox 3: 52599 - Migraine ([id number])
[2023-05-10 07:59] VITALS: BP 120/86; PULSE 72; O2SAT 97
== END 2023-05-10 08:23 | disposition home or self-care (01) ==
PROVIDERS: PCP Internal Medicine; Visit Provider Psychiatry & Neurology Neurology
DX: G43.709 Chronic migraine without aura, not intractable, without status migrainosus (principal)
CPT/HCPCS: 64615

== ENCOUNTER → 2023-05-10 07:50 | Outpatient (BNVA) | payer OTHER, SELFPAY | PROVIDERS: PCP Internal Medicine; Visit Provider Psychiatry & Neurology Neurology | DX: G43.709 Chronic migraine without aura, not intractable, without status migrainosus (principal) | CPT/HCPCS: 64615; 99211; J0585 ==

== ENCOUNTER 2023-07-06 06:31 | Emergency (ER) | payer OTHER, SELFPAY ==
[2023-07-06 06:35] VITALS: BP 125/51; PULSE 79; RESP 16; TEMP 37; O2SAT 98; BMI 30.3
--- NOTE | 2023-07-06 07:17 | PC.NURSE ---
Patient reports lower back pain hat started 2 days ago and has progressively gotten worse. Reports tingling in buttocks and thighs. Reports hx of sciatica with similar pain in the past. Denies flank or abdominal pain, sob, or chest pain
--- NOTE | 2023-07-06 07:26 | ED.BACK ---
HPI - Back Pain/Injury General Chief Complaint: Back Pain/Injury Stated Complaint: low back and hip pain Time Seen by Provider: 07/06/23 07:16 Source: patient and family Mode of arrival: ambulatory Limitations: no limitations History of Present Illness HPI Narrative: 48-year-old female history of back pain sacroiliitis and has been getting back injections. The patient had been on prednisone approximately 2 months ago that was trialed on gabapentin without relief. Patient to get a injection into her SI joint without relief of her pain proximally 1 month ago. She has since not been able follow-up she states due to issues with her insurance. She denies any falls or injuries she denies any numbness weakness she has had no loss of bowel or bladder function. She denies any fevers chills denies any IV drug use. MD elicited complaint: back pain Related Data Home Medications Medication Instructions Recorded Confirmed ferrous sulfate 325 mg (65 mg 324 mg PO DAILY 07/25/20 04/10/23 iron) tablet hvolunpsodmd-Xu-bdfd-minerals 27 1 tab PO DAILY 07/25/20 04/10/23 mg-0.4 mg tablet (Women's Daily Formula) vitamin B comp and C no.3 15 mg-10 1 cap PO DAILY 07/25/20 04/10/23 mg-50 mg-5 mg-300 mg capsule (B Complex Plus Vitamin C) mecobalamin (vitamin B12) 10,000 mcg IM 12/21/21 04/10/23 mcg solution for injection clonazepam 1 mg tablet 1 mg PO BEDTIME PRN 01/09/23 04/10/23 omeprazole 40 mg capsule,delayed 40 mg PO DAILY 01/09/23 04/10/23 release sertraline 25 mg tablet 100 mg PO DAILY 04/10/23 04/10/23 amitriptyline 25 mg tablet 25 mg PO BEDTIME 05/10/23 levetiracetam 500 mg/5 mL (5 mL) 500 mg PO BID 05/10/23 oral solution naproxen 500 mg tablet 500 mg PO BID PRN pain 05/10/23 Previous Rx's Medication Instructions Recorded cholecalciferol (vitamin D3) 25 1 tab PO DAILY #30 tabs 09/10/20 mcg (1,000 unit) tablet (Vitamin D3) pyridoxine (vitamin B6) 50 mg 50 mg PO BID 30 days #60 tabs 12/21/21 tablet metoclopramide HCl 5 mg tablet 5 - 10 mg (1 - 2 x 5 mg) PO Q4-6H 01/09/23 PRN migraine headache 14 days #10 tabs onabotulinumtoxinA 200 unit 200 unit IM ONCE 12 weeks #1 ea 04/18/23 solution for injection (Botox) propranolol 10 mg tablet 10 mg PO BID 90 days #180 tabs 06/15/23 acetaminophen 325 mg tablet 325 mg PO QID PRN pain #90 tabs 07/06/23 (Tylenol) cyclobenzaprine 5 mg tablet 5 mg PO BEDTIME PRN muscle spasm 07/06/23 #20 tabs prednisone 20 mg tablet 60 mg (3 x 20 mg) PO DAILY Asthma 07/06/23 5 days #15 tabs Allergies Allergy/AdvReac Type Severity Reaction Status Date / Time zolmitriptan [From ZOMIG] Allergy Intermediate Migraine Verified 05/10/23 07:53 Review of Systems Review of Systems: Review of systems: General: Patient denies any fever chills recent illness or falls Musculoskeletal: Back pain with radiation down left leg denies any or body aches or other injuries HEENT: denies headache, runny nose, ear pain Respiratory: denies shortness of breath, cough Cardiovascular: no chest pain or palpitations : denies dysuria, frequency Abdomen: no nausea vomiting denies abdominal pain Extremities: no swelling, no pain Skin: no diaphoresis Yes all other systems are reviewed and are negative PMFSH Past Medical History Medical History Anemia Asthma Chronic pain syndrome Depression with anxiety Migraine Sacroiliitis Seizure disorder Surgical History Gastric bypass status for obesity History of bilateral breast reduction surgery Tubal ligation status Family History Family History Mother Heart problem Social History Social History Household Members: Spouse Alcohol intake: current Alcohol intake frequency: holidays/special occasions only Patient Tobacco Use Status: Never used Tobacco Smoked in Last 30 Days: No Use of substances other than those prescribed or required for medical reasons: No Advance Directives: No Advance Directives Information Provided: No Current occupational status: disabled Physical Exam Vital Signs: Vital Signs: Last Vital Signs Temp 98.6 F 07/06/23 06:35 Pulse 79 07/06/23 06:35 Resp 16 07/06/23 06:35 BP 125/51 L 07/06/23 06:35 Pulse Ox 98 07/06/23 06:35 BMI result Body Mass Index 30.3 General: Well-appearing well-nourished in no signs of distress HEENT: Normocephalic atraumatic Neck: No signs of JVD, no masses no tenderness or lymphadenopathy Cardiovascular: Regular rate and rhythm Respiratory: Clear to auscultation bilaterally Abdomen: Soft nontender no masses she is able to squeeze her buttcheeks together Extremities: Normal pedal pulses no signs of edema Skin: Dry warm no rashes Back: No tenderness full ROM negative straight leg test normal reflexes to bilteral lower extremities normal pulses Medical Decision Making Medical Decision Making MDM Narrative: patient with acute on chronic back pain does not appear to have any back red flags patient does not use any IV drugs has no fever chills cough or shortness of breath normal reflexes no tenderness to palpation of the spine. Head did review the pain specialist no which she agreed that MRI was not warranted 1 month ago I do not think there is any change in this today. I will send patient home with cyclobenzaprine prednisone and Tylenol will give patient dose of each here patient is happy with this plan. Differential Diagnosis Differential Diagnoses: The differential diagnosis associated with the presentation includes back pain back strain sacroiliitis acute on chronic back pain Admission/Observation Consideration of admission/observation: Escalation of care including admission/observation considered Not warranted today Tests considered The following testing was considered but not selected: MRI I did think is warranted patient has no back pain red flags. Discharge Plan Discharge Clinical Impression: Sacroiliitis, Back pain Patient Disposition: Home, Self-Care Instructions: Acute Low Back Pain (ED) Additional Instructions: You were seen in the emergency room tonight for back pain. Your given Tylenol prednisone and a muscle relaxant. The muscle relaxant will not relax muscles it is more something to help you sleep to control her pain. If you have worsening pain loss of control of your bowel or bladder function fevers or any other concerns please return to the emergency department. Prescriptions: New acetaminophen [Tylenol] 325 mg tablet 325 mg PO QID PRN (Reason: pain) Qty: 90 0RF prednisone 20 mg tablet 60 mg PO DAILY 5 Days Qty: 15 0RF cyclobenzaprine 5 mg tablet 5 mg PO BEDTIME PRN (Reason: muscle spasm) Qty: 20 0RF No Action Botox 200 unit recon soln 200 unit IM ONCE 84 Days Qty: 1 3RF Rx Instructions: inject 155 units IM across forehead, scalp, and neck propranolol 10 mg tablet 10 mg PO BID 90 Days Qty: 180 0RF ferrous sulfate 325 mg (65 mg iron) tablet 324 mg PO DAILY Women's Daily Formula 27-0.4 mg tablet 1 tab PO DAILY B Complex Plus Vitamin C [id number] mg capsule 1 cap PO DAILY cholecalciferol (vitamin D3) [Vitamin D3] 25 mcg (1,000 unit) tablet 1 tab PO DAILY Qty: 30 2RF mecobalamin (vitamin B12) 10,000 mcg recon soln IM pyridoxine (vitamin B6) 50 mg tablet 50 mg PO BID 30 Days Qty: 60 6RF clonazepam 1 mg tablet 1 mg PO BEDTIME PRN omeprazole 40 mg capsule,delayed release(DR/EC) 40 mg PO DAILY metoclopramide HCl 5 mg tablet 5 - 10 mg PO Q4-6H PRN (Reason: migraine headache) 14 Days Qty: 10 1RF sertraline 25 mg tablet 100 mg PO DAILY naproxen 500 mg tablet 500 mg PO BID PRN (Reason: pain) amitriptyline 25 mg tablet 25 mg PO BEDTIME levetiracetam 500 mg/5 mL (5 mL) solution 500 mg PO BID
[2023-07-06 07:35] VITALS: BP 98/52; PULSE 70; RESP 14; O2SAT 100
[2023-07-06] MEDS: Acetaminophen 325 MG TABLET 975 MG PO (07:37)
[2023-07-06] MEDS: Cyclobenzaprine HCl 10 MG TABLET PO (07:37)
[2023-07-06] MEDS: predniSONE 20 MG TABLET 60 MG PO (07:38)
--- NOTE | 2023-07-06 07:42 | PC.NURSE ---
Discharge plan reviewed with patient who verbalized understanding
== END 2023-07-06 07:42 | disposition home or self-care (01) ==
PROVIDERS: Emergency Provider Student in an Organized Health Care Education/Training Program; PCP Internal Medicine
DX: M46.1 Sacroiliitis, not elsewhere classified (principal); M54.9 Dorsalgia, unspecified; Z79.899 Other long term (current) drug therapy
CPT/HCPCS: 99283; 99284

== ENCOUNTER 2023-07-13 13:48 | Outpatient (AMB) | payer OTHER, SELFPAY ==
--- NOTE | 2023-07-13 13:55 | MHC.OFFVIS ---
Intake Vital Signs 07/13/23 13:57 Weight 198 lb 6 oz BP 122/68 Blood Pressure Location Lt brachial Position Sitting Intake Visit Reasons: 3m follow up seizures-Mail bx full Intake Note: Pt presents today fup seizures, meds are working, still gets some tension headaches Allergies zolmitriptan [From ZOMIG] Allergy (Intermediate, Verified 05/10/23 07:53) Migraine Medication List - Last Reconciled 07/13/23 by Bhumi Londono, JERRI acetaminophen (Tylenol) 325 mg PO QID PRN amitriptyline 25 mg PO BEDTIME cholecalciferol (vitamin D3) (Vitamin D3) 1 tab PO DAILY clonazepam 1 mg PO BEDTIME PRN ferrous sulfate 324 mg PO DAILY levetiracetam 500 mg PO BID mecobalamin (vitamin B12) mcg IM kxxetlaejlve-An-qxlx-minerals (Women's Daily Formula) 1 tab PO DAILY naproxen 500 mg PO BID PRN omeprazole 40 mg PO DAILY onabotulinumtoxinA (Botox) 200 units IM ONCE 12 weeks oxcarbazepine 2.5 ml bid x's 1 week, then 5ml bid x's 1 week, then 7.5 ml bid x's 1 week, then 10ml bid orally 2 times a day; 30 days prednisone 60 mg (3 x 20 mg) PO DAILY 5 days propranolol 10 mg PO BID 90 days pyridoxine (vitamin B6) 50 mg PO BID 30 days sertraline 100 mg PO DAILY vitamin B comp and C no.3 (B Complex Plus Vitamin C) 1 cap PO DAILY HPI HPI Comments History of Present Illness Details 48-yr-old female presents for f/u visit. Pt denies any significant interval medical changes. Pt reports that she is having less migarine- maybe 1 migraine a week or even less. May have an occassional tension type headache if she does sleep well. She is taking Amitriptyline about twice a week- for her fibromyalgia s/s. She is complinat w/ Topiramate and Prorpanolol. She states her seizures are not as frequent or as severe. She wonders if the Kappra can be causing mood changes- for instance can feel irritable even when not sressed or depressed. She is complaint w/ Keppra 500mg bid and vit B6. [facility] Medical History Depression with anxiety Asthma Chronic pain syndrome Sacroiliitis Seizure disorder Migraine Anemia Surgical History Tubal ligation status History of bilateral breast reduction surgery Gastric bypass status for obesity Family History Mother Heart problem Social History Household Members: Spouse Alcohol intake: current Alcohol intake frequency: holidays/special occasions only Patient Tobacco Use Status: Never used Tobacco Current occupational status: disabled Review of Systems Const All systems reviewed & are unremarkable except as noted in HPI and below Physical Exam Vital Signs: Last Vital Signs BP 122/68 07/13/23 13:57 Const General: cooperative and no acute distress Orientation/consciousness: patient oriented x3 HEENT Head: Yes normocephalic Resp Effort & Inspection: normal respiratory effort and able to speak in complete sentences Neuro General: patient oriented x3, gait normal and CN's II-XI intact bilaterally Cognition (Neuro): normal cognition Motor exam (neuro): 5/5 motor strength present throughout Psych Appearance: grossly normal Mental Status: mental status grossly normal Speech and movement: Normal speech and movement present Affect: normal affect Attitude: cooperative Thought process: Normal thought process present Thought content: Normal thought content present Insight: Good insight present (Psych) Judgement: Good judgement present (Psych) Assessment & Plan Assessment & Plan (1) Seizure disorder: Code(s): G40.909 - Epilepsy, unspecified, not intractable, without status epilepticus (2) Chronic migraine without aura: Code(s): G43.709 - Chronic migraine without aura, not intractable, without status migrainosus Plan For seizure activity: Will wean pt off Keppra as it may be causing mood changes, and trial Trileptal- as below. Check CBC, CMP now and in 1 month- pt will do at [facility] Clonazepam as needed Pt does NOT drive. Week 1: Oxcarbazepine 2.5 ml at bedtime x's 3 days, then twice a day Keppra 500mg twice a day Vitamin B6 50mg twice a day Week 2: Oxcarbazepine 5 ml twice a day Keppra 500mg twice a day Vitamin B6 50mg twice a day Week 3: Oxcarbazepine 7.5 ml twice a day Keppra 250 mg twice a day Vitamin B6 50mg twice a day Week 4: Oxcarbazepine 10ml twice a day Keppra 250mg at bedtime Vitamin B6 50mg twice a day Week 5: Oxcarbazepine 10 ml twice a day Stop Keppra 500mg Stop Vitamin B6 50mg twice a day For migraine prevention: Continue Botox 155 units IM q 12 weeks, as pt has had significant reduction in her migraine frequency. Continue Topiramate 200mg bid. Pt using Amitriptyline prn for fibromyalgia. Continue Propranolol 10mg bid- would not increase further due to low BP and lightheadedness. Continue Sertraline- pt is not interested in trying alternate at this time. Tried Cymbalat before- not tolerated. Previous migarine tx's: Amitriptyline- stopped d/t recent ? serotonin syndrome. ? For acute headache tx: May use Tylenol or Excedrin prn. Continue Benadryl, Zofran, Reglan prn. May use Fioricet prn for rescue. Previous acute migraine tx's: Nurtec- ineffective. Patient has a contraindication to triptans, has had a rash reaction to the zolmitriptan. Ubrelvy- ineffective. ? ? f/u in 3 months or sooner prn. Orders: Orders Comprehensive Met. Panel Today D64.9 - Anemia, unspecified, G40.909 - Epilepsy, unspecified, not intractable, without status epilepticus Comprehensive Met. Panel 1 Month D64.9 - Anemia, unspecified, G40.909 - Epilepsy, unspecified, not intractable, without status epilepticus Complete Blood Count Auto Diff Today D64.9 - Anemia, unspecified, G40.909 - Epilepsy, unspecified, not intractable, without status epilepticus Complete Blood Count Auto Diff 1 Month D64.9 - Anemia, unspecified, G40.909 - Epilepsy, unspecified, not intractable, without status epilepticus Medications: New oxcarbazepine 2.5 ml bid x's 1 week, then 5ml bid x's 1 week, then 7.5 ml bid x's 1 week, then 10ml bid orally 2 times a day; 30 days 650 mL 3RF topiramate 100 mg PO BID 60 tabs 6RF 30 days Refilled propranolol 10 mg PO BID 90 days 180 tabs 1RF Coding Level of Care Code Est Pt Level 4 (10849) Diagnoses Seizure disorder G40.909 Chronic migraine without aura G43.705
[2023-07-13 13:57] VITALS: BP 122/68
== END 2023-07-13 15:00 | disposition home or self-care (01) ==
PROVIDERS: PCP Internal Medicine; Visit Provider Nurse Practitioner Family
DX: G40.909 Epilepsy, unspecified, not intractable, without status epilepticus (principal); G43.709 Chronic migraine without aura, not intractable, without status migrainosus
CPT/HCPCS: 99214

== ENCOUNTER → 2023-07-13 13:48 | Outpatient (BNVA) | payer OTHER, SELFPAY | PROVIDERS: PCP Internal Medicine; Visit Provider Nurse Practitioner Family | DX: G40.909 Epilepsy, unspecified, not intractable, without status epilepticus (principal); G43.709 Chronic migraine without aura, not intractable, without status migrainosus; Z79.52 Long term (current) use of systemic steroids; Z79.899 Other long term (current) drug therapy | CPT/HCPCS: 99212 ==

== ENCOUNTER 2023-08-07 10:30 | Outpatient (AMB) | payer OTHER, SELFPAY ==
--- NOTE | 2023-08-07 10:34 | A.OFFVIS_ITS ---
Intake Vital Signs 08/07/23 10:46 Weight 193 lb 4 oz BP 112/62 Blood Pressure Location Rt brachial Position Sitting Intake Visit Reasons: Follow up for Seizure Intake Note: F/U Seizure Director Software Development Required: No Allergies zolmitriptan [From ZOMIG] Allergy (Intermediate, Verified 08/15/23 13:46) Migraine HPI HPI Comments History of Present Illness Details 48-yr-old female presents for f/u visit. Pt denies any significant interval medical changes. Pt was tapering her keppra off and increase trileptal. However, she messed up the dosage, not sure the dosage now. She thinks she take keppra 250 mg BID and trileptal 5ml BID. She had a seizure, on Sunday, Sunday and Sunday. May have an occasional tension type headache if she does not sleep well. She is taking Amitriptyline about twice a week- for her fibromyalgia s/s. She is on propranolol 10 mg BID. [facility] Medical History Depression with anxiety Asthma Chronic pain syndrome Sacroiliitis Seizure disorder Migraine Anemia Surgical History Tubal ligation status History of bilateral breast reduction surgery Gastric bypass status for obesity Family History Mother Heart problem Social History Household Members: Spouse Alcohol intake: current Alcohol intake frequency: holidays/special occasions only Comment: pt reports her baseline back pain is 10/10 Patient Tobacco Use Status: Never used Tobacco Current occupational status: disabled Review of Systems Const All systems reviewed & are unremarkable except as noted in HPI and below Physical Exam Vital Signs: Last Vital Signs BP 112/62 08/07/23 10:46 Const General: cooperative and no acute distress Orientation/consciousness: patient oriented x3 HEENT Head: Yes normocephalic Resp Effort & Inspection: normal respiratory effort and able to speak in complete sentences Neuro General: patient oriented x3, gait normal and CN's II-XI intact bilaterally Cognition (Neuro): normal cognition Motor exam (neuro): 5/5 motor strength present throughout Psych Appearance: grossly normal Mental Status: mental status grossly normal Speech and movement: Normal speech and movement present Affect: normal affect Attitude: cooperative Thought process: Normal thought process present Thought content: Normal thought content present Insight: Good insight present (Psych) Judgement: Good judgement present (Psych) Assessment & Plan Assessment & Plan (1) Seizure disorder: Code(s): G40.909 - Epilepsy, unspecified, not intractable, without status epilepticus (2) Chronic migraine without aura: Code(s): G43.709 - Chronic migraine without aura, not intractable, without status migrainosus Plan Advised patient to start trileptal 10ml BID and discontinue keppra. For acute headache tx: May use Tylenol or Excedrin prn. Continue Benadryl, Zofran, Reglan prn. May use Fioricet prn for rescue. Previous acute migraine tx's: Nurtec- ineffective. Patient has a contraindication to triptans, has had a rash reaction to the zolmitriptan. Ubrelvy- ineffective. ? ? f/u in 3 months or sooner prn. Coding Level of Care Code Est Pt Level 3 (41661) Diagnoses Seizure disorder G40.909 Chronic migraine without aura G43.709
[2023-08-07 10:46] VITALS: BP 112/62
== END 2023-08-07 11:22 | disposition home or self-care (01) ==
PROVIDERS: PCP Internal Medicine; Visit Provider Nurse Practitioner Family
DX: G40.909 Epilepsy, unspecified, not intractable, without status epilepticus (principal); G43.709 Chronic migraine without aura, not intractable, without status migrainosus
CPT/HCPCS: 99213

== ENCOUNTER → 2023-08-07 10:30 | Outpatient (BNVA) | payer OTHER, SELFPAY | PROVIDERS: PCP Internal Medicine; Visit Provider Nurse Practitioner Family | DX: G40.909 Epilepsy, unspecified, not intractable, without status epilepticus (principal); G43.709 Chronic migraine without aura, not intractable, without status migrainosus | CPT/HCPCS: 99212 ==

== ENCOUNTER 2023-08-15 13:40 | Outpatient (AMB) | payer OTHER, SELFPAY ==
--- NOTE | 2023-08-15 13:46 | MHC.OFFVIS ---
Intake Vital Signs 08/15/23 13:47 Height 5 ft 7 in Weight 198 lb 4 oz BMI 31.0 BP 142/78 H Blood Pressure Location Rt brachial Position Sitting Respiration 16 Pulse 76 Pulse Source Pulse Oximeter Pulse Oximetry (%) 97 Oxygen Delivery Method Room Air Intake Visit Reasons: Botox - Confirmed Intake Note: Pt presents to the office for Botox injections. Wearing Apparel Shaker Required: No Allergies zolmitriptan [From ZOMIG] Allergy (Intermediate, Verified 08/15/23 13:46) Migraine Medication List - Last Reconciled 08/15/23 by Gill Bonds MD acetaminophen (Tylenol) 325 mg PO QID PRN cholecalciferol (vitamin D3) (Vitamin D3) 1 tab PO DAILY clonazepam 1 mg PO BEDTIME PRN ferrous sulfate 324 mg PO DAILY mecobalamin (vitamin B12) mcg IM xjzlkodxjpwk-Uj-cdqa-minerals (Women's Daily Formula) 1 tab PO DAILY naproxen 500 mg PO BID PRN omeprazole 40 mg PO DAILY onabotulinumtoxinA (Botox) 200 units IM ONCE 12 weeks oxcarbazepine 2.5 ml bid x's 1 week, then 5ml bid x's 1 week, then 7.5 ml bid x's 1 week, then 10ml bid orally 2 times a day; 30 days propranolol 10 mg PO BID 90 days sertraline 100 mg PO DAILY vitamin B comp and C no.3 (B Complex Plus Vitamin C) 1 cap PO DAILY HPI HPI Comments History of Present Illness Details ? 48y/o female comes for treatment of migraines with botox.She did well with Botox and has 1 migraine day a week. she used to have 20 migraine days a month and uses tylenol or excedrin migraine she did not tolerate sumatriptan, poor response to ubrelvy ??? Most frequent reported adverse reactions following injection of botox for chronic migraine include neck pain (9%), headache(5%), eyelid ptosis(4%), migraine(4%), muscular weakness(4%), musculuskeletal stiffness(4%), bronchitis(3%), injection site pain (3%), musculoskeletal pain(3%), myalgia(3%), facial paresis(2%), HTN(2%) and muscle spasms(2%) were discussed in detail. ??? Botulinum toxin typeA 200units Lot no [id number] expiration December 2025 was diluted with 4 cc of normal saline . ??? Muscles injected- ??? Frontalis 4 sites ??? Procerus 1 site ??? Water Leak Repairer- 2 sites ??? Temporalis- 8 sites ??? Occipitalis- 6 sites ??? Cervical paraspinals- 4 sites ??? Trapezius- 6 sites- 10 units each ??? 5 units each in 31 site ??? Total use- 185units ??? Discarded-15units [facility] Medical History Depression with anxiety Asthma Chronic pain syndrome Sacroiliitis Seizure disorder Migraine Anemia Surgical History Tubal ligation status History of bilateral breast reduction surgery Gastric bypass status for obesity Family History Mother Heart problem Household Members: Spouse Alcohol intake: current Alcohol intake frequency: holidays/special occasions only Patient Tobacco Use Status: Never used Tobacco Current occupational status: disabled Physical Exam Vital Signs: Last Vital Signs Pulse 76 08/15/23 13:47 Resp 16 08/15/23 13:47 BP 142/78 H 08/15/23 13:47 Pulse Ox 97 08/15/23 13:47 Oxygen Delivery Method Room Air 08/15/23 13:47 BMI result Body Mass Index 31.0 Const General: cooperative and no acute distress Orientation/consciousness: patient oriented x3 HEENT Head: Yes normocephalic Resp Effort & Inspection: normal respiratory effort and able to speak in complete sentences Neuro General: patient oriented x3, gait normal and CN's II-XI intact bilaterally Cognition (Neuro): normal cognition Motor exam (neuro): 5/5 motor strength present throughout Psych Appearance: grossly normal Mental Status: mental status grossly normal Speech and movement: Normal speech and movement present Affect: normal affect Attitude: cooperative Thought process: Normal thought process present Thought content: Normal thought content present Insight: Good insight present (Psych) Judgement: Good judgement present (Psych) Office Procedures Botulinum toxin Injection 47385 - Migraine Procedure code (CPT) selection complete Office Meds onabotulinumtoxinA 200 unit solution for injection Performing Provider: Gill Bonds MD Performing Location: [facility] Administered by: Gill Bonds MD on 08/15/23 14:22 Dose Route Admin Location Dispensed Lot Number Expiration Date [facility] Integration Analyst 185 unit subcut 200 units [id number] 12/23/25 3464-8707-67 ALLERGAN/BOTOX Comments: see HPI Assessment & Plan Assessment & Plan (1) Chronic migraine without aura: Code(s): G43.709 - Chronic migraine without aura, not intractable, without status migrainosus Plan Patient tolerated the procedure well SHe will call with any side effects. Orders: Orders AMB Botulinum toxin Injection Today G43.709 - Chronic migraine without aura, not intractable, without status migrainosus Coding Level of Care Code Est Pt Level 1 (50887) Diagnoses Chronic migraine without aura G43.709 CPT Codes Botox Injection - Botox 3: 70303 - Migraine ([id number])
[2023-08-15 13:47] VITALS: BP 142/78; PULSE 76; RESP 16; O2SAT 97; BMI 31.0
== END 2023-08-15 14:21 | disposition home or self-care (01) ==
PROVIDERS: PCP Internal Medicine; Visit Provider Psychiatry & Neurology Neurology
DX: G43.709 Chronic migraine without aura, not intractable, without status migrainosus (principal)
CPT/HCPCS: 64615

== ENCOUNTER → 2023-08-15 13:40 | Outpatient (BNVA) | payer OTHER, SELFPAY | PROVIDERS: PCP Internal Medicine; Visit Provider Psychiatry & Neurology Neurology | DX: G43.709 Chronic migraine without aura, not intractable, without status migrainosus (principal) | CPT/HCPCS: 64615; 99211; J0585 ==

== ENCOUNTER 2023-09-10 06:39 | Emergency (ER) | payer OTHER, SELFPAY ==
[2023-09-10 06:50] VITALS: BP 109/56; PULSE 79; RESP 20; TEMP 36.7; O2SAT 98; BMI 31.0
== END 2023-09-10 16:14 | disposition left against medical advice (07) ==
LOC: HO.ED 16:13
PROVIDERS: Emergency Provider Emergency Medicine
DX: M54.50 Low back pain, unspecified (principal)
CPT/HCPCS: 99281

== ENCOUNTER → 2023-12-10 10:56 | Outpatient (BNVA) | payer OTHER, SELFPAY | PROVIDERS: Visit Provider Psychiatry & Neurology Neurology | DX: G43.709 Chronic migraine without aura, not intractable, without status migrainosus (principal) | CPT/HCPCS: 64615; 99211; J0585 ==

== ENCOUNTER 2023-12-10 11:02 | Outpatient (AMB) | payer OTHER, SELFPAY ==
[2023-12-10 11:03] VITALS: BP 108/66; PULSE 87; RESP 16; O2SAT 98; BMI 31.7
--- NOTE | 2023-12-10 11:03 | MHC.OFFVIS ---
Intake Vital Signs 12/10/23 11:03 Height 5 ft 7 in Weight 202 lb 2 oz BMI 31.7 BP 108/66 Blood Pressure Location Rt brachial Position Sitting Respiration 16 Pulse 87 Pulse Source Pulse Oximeter Pulse Oximetry (%) 98 Oxygen Delivery Method Room Air Intake Visit Reasons: Botox-Conf w/ address-CONF Intake Note: Pt presents for Botox injections. Nail Sticker Required: No Allergies zolmitriptan [From ZOMIG] Allergy (Intermediate, Verified 12/10/23 11:03) Migraine Medication List - Last Reconciled 12/10/23 by Gill Bonds MD acetaminophen (Tylenol) 325 mg PO QID PRN cholecalciferol (vitamin D3) (Vitamin D3) 1 tab PO DAILY clonazepam 1 mg PO BEDTIME PRN ferrous sulfate 324 mg PO DAILY lasmiditan (Reyvow) max 2 tabs per day (taken at the same time) 30 days mecobalamin (vitamin B12) mcg IM ikavkpsfgytr-Ya-pkhu-minerals (Women's Daily Formula) 1 tab PO DAILY omeprazole 40 mg PO DAILY onabotulinumtoxinA (Botox) 200 units IM ONCE 12 weeks oxcarbazepine 600 mg (2 x 300 mg) PO BID 30 days propranolol 10 mg PO BID 90 days sertraline 100 mg PO DAILY vitamin B comp and C no.3 (B Complex Plus Vitamin C) 1 cap PO DAILY HPI HPI Comments History of Present Illness Details ? 48y/o female comes for treatment of migraines with botox.She did well with Botox and has 1 migraine day a week. she used to have 20 migraine days a month and uses tylenol or excedrin migraine she did not tolerate sumatriptan, poor response to ubrelvy ??? Most frequent reported adverse reactions following injection of botox for chronic migraine include neck pain (9%), headache(5%), eyelid ptosis(4%), migraine(4%), muscular weakness(4%), musculuskeletal stiffness(4%), bronchitis(3%), injection site pain (3%), musculoskeletal pain(3%), myalgia(3%), facial paresis(2%), HTN(2%) and muscle spasms(2%) were discussed in detail. ??? Botulinum toxin typeA 200units Lot no [id number] expiration January 2026 was diluted with 4 cc of normal saline . ??? Muscles injected- ??? Frontalis 4 sites ??? Procerus 1 site ??? Syrup Machine Laborer- 2 sites ??? Temporalis- 8 sites ??? Occipitalis- 6 sites ??? Cervical paraspinals- 4 sites ??? Trapezius- 6 sites- 10 units each ??? 5 units each in 31 site ??? Total use- 185units ??? Discarded-15units COUNTS INCLUDE 234 BEDS AT THE [facility] Medical History Depression with anxiety Asthma Chronic pain syndrome Sacroiliitis Seizure disorder Migraine Anemia Surgical History Tubal ligation status History of bilateral breast reduction surgery Gastric bypass status for obesity Family History Mother Heart problem Social History Household Members: Spouse Alcohol intake: current Alcohol intake frequency: holidays/special occasions only Comment: pt reports her baseline back pain is 10/10 Patient Tobacco Use Status: Never used Tobacco Current occupational status: disabled Physical Exam Vital Signs: Last Vital Signs Pulse 87 12/10/23 11:03 Resp 16 12/10/23 11:03 BP 108/66 12/10/23 11:03 Pulse Ox 98 12/10/23 11:03 Oxygen Delivery Method Room Air 12/10/23 11:03 BMI result Body Mass Index 31.7 Const General: cooperative and no acute distress Orientation/consciousness: patient oriented x3 HEENT Head: Yes normocephalic Resp Effort & Inspection: normal respiratory effort and able to speak in complete sentences Neuro General: patient oriented x3, gait normal and CN's II-XI intact bilaterally Cognition (Neuro): normal cognition Motor exam (neuro): 5/5 motor strength present throughout Psych Appearance: grossly normal Mental Status: mental status grossly normal Speech and movement: Normal speech and movement present Affect: normal affect Attitude: cooperative Thought process: Normal thought process present Thought content: Normal thought content present Insight: Good insight present (Psych) Judgement: Good judgement present (Psych) Office Procedures Botulinum toxin Injection 62472 - Migraine Procedure code (CPT) selection complete Office Meds onabotulinumtoxinA 200 unit solution for injection Performing Provider: Gill Bonds MD [place] [facility] [place] [facility] Administered by: Gill Bonds MD on 12/10/23 12:00 Dose Route Admin Location Dispensed Lot Number Expiration Date [employer] Residential [employer]er 185 unit subcut 200 units [id number] 01/22/26 5095-3276-44 ALLERGAN/BOTOX Comments: see hpi Assessment & Plan Assessment & Plan (1) Chronic migraine without aura: Code(s): G43.709 - Chronic migraine without aura, not intractable, without status migrainosus Plan Patient tolerated the procedure well SHe will call with any side effects. Orders: Orders AMB Botulinum toxin Injection Today G43.709 - Chronic migraine without aura, not intractable, without status migrainosus Coding Level of Care Code Est Pt Level 1 (95761) Diagnoses Chronic migraine without aura G43.709 CPT Codes Botox Injection - Botox 3: 10511 - Migraine ([id number])
== END 2023-12-10 11:36 | disposition home or self-care (01) ==
PROVIDERS: Visit Provider Psychiatry & Neurology Neurology
DX: G43.709 Chronic migraine without aura, not intractable, without status migrainosus (principal)
CPT/HCPCS: 64615

== ENCOUNTER 2024-01-29 09:16 | Outpatient (REF) | payer OTHER, SELFPAY ==
[2024-01-29 11:47] LABS: MANUAL DIFF FLAG NO
[2024-01-29 11:55] LABS: Basophils Absolute Auto 0.1 X10*3/uL (0.0-0.2); Basophils Percent Auto 1.1 % (0-2); Eosinophils Absolute Auto 0.1 X10*3/uL (0.0-0.4); Eosinophils Percent Auto 1.1 % (0-4); Hematocrit 33.3 % (37.0-47.0); Hemoglobin 11.5 g/dl (12.0-16.0); Imm Gran Abs Auto 0.03 X10*3/uL (0.00-0.03); Imm Gran Pct Auto 0.6 % (0.0-0.4); Lymphocytes Absolute Auto 1.4 X10*3/uL (1.2-4.9); Lymphocytes Percent Auto 28.9 % (20-40); Mean Corpuscular HGB Conc 34.5 g/dl (31.0-35.0); Mean Corpuscular Hemoglobin 31.7 pg (27.0-33.0); Mean Corpuscular Volume 91.7 fL (80.0-98.0); Mean Platelet Volume 9.9 fL (9.4-12.3); Monocytes Absolute Auto 0.3 X10*3/uL (0.1-1.2); Monocytes Percent Auto 5.9 % (2-11); Neutrophils Percent Auto 62.4 % (45-73); Platelet Count 322 X10*3/uL (160-400); Red Blood Count 3.63 X10*6/uL (4.20-5.50); Red Cell Distribution Width 11.7 % (11.0-16.0); White Blood Count 4.7 X10*3/uL (4.8-10.8)
[2024-01-29 12:07] LABS: Estimated Average Glucose 94 mg/dL; Hemoglobin A1c % 4.9 % (<6.0)
[2024-01-29 12:34] LABS: Folate 12.6 ng/mL (> or = 4.0); Vitamin B12 845 pg/mL (200-900)
[2024-01-29 12:35] LABS: Erythrocyte Sedimentation Rate 14 MM/HR (0-20)
[2024-01-29 19:16] LABS: Alanine Aminotransferase 23 U/L (0-31); Albumin Level 4.1 g/dL (3.5-5.0); Alkaline Phosphatase 68 U/L (39-117); Anion Gap 14 (12-20); Aspartate Amino Transferase 21 U/L (5-31); Bilirubin Total 0.3 mg/dL (0.0-1.0); Blood Urea Nitrogen 10 mg/dL (9-16); Calcium 9.7 mg/dL (8.4-10.2); Carbon Dioxide 26 mmol/L (22-29); Chloride 106 mmol/L (96-108); Estimated Glomerular Filt Rate > 60; Glucose Random 107 mg/dL (60-115); Iron 77 mcg/dL (30-160); Percent Iron Saturation 30 % (15-50); Potassium 4.2 mmol/L (3.3-5.1); Sodium 142 mmol/L (135-145); Total Iron Binding Capacity 257 mcg/dL (228-428); Total Protein 7.3 g/dL (6.5-8.0); Unsaturated Iron Binding 180 ug/dL
[2024-01-29 19:33] LABS: Ferritin 86 ng/mL (10-250); TSH reflex Free T4 0.83 uIU/mL (0.32-4.0)
[2024-01-30 17:34] LABS: CRP High Sensitivity 0.8 mg/L
[2024-02-02 17:14] LABS: Methylmalonic Acid 169 nmol/L (87-318)
== END 2024-01-29 09:17 | disposition home or self-care (01) ==
LOC: HO.HKASLDS 09:16
PROVIDERS: Visit Provider Nurse Practitioner Family
DX: D64.9 Anemia, unspecified (principal); G40.909 Epilepsy, unspecified, not intractable, without status epilepticus; G25.81 Restless legs syndrome; R53.83 Other fatigue
CPT/HCPCS: 36415; 80053; 82550; 82607; 82728; 82746; 83036; 83540; 83921; 84443; 85025; 85652; 86141

== ENCOUNTER 2024-10-02 10:38 | Outpatient (AMB) | payer OTHER, SELFPAY ==
--- NOTE | 2024-10-02 11:13 | MHC.OFFVIS ---
Vital Signs 10/02/24 11:14 Height 5 ft 7 in Weight 225 lb BMI 35.2 BP 94/70 Blood Pressure Location Lt brachial Position Sitting Pulse 79 Pulse Source Pulse Oximeter Pulse Oximetry (%) 98 Oxygen Delivery Method Room Air Intake Visit Reasons: Follow up Psychology Fellow Required: No Accompanied by: Self / Same As Patient Allergies zolmitriptan [From ZOMIG] Allergy (Intermediate, Verified 10/02/24 11:16) Migraine Medication List - Last Reconciled 10/02/24 by JERRI Hayes acetaminophen (Tylenol) 325 mg PO QID PRN cholecalciferol (vitamin D3) (Vitamin D3) 1 tab PO DAILY clonazepam 1 mg PO BEDTIME PRN ferrous sulfate 324 mg PO DAILY lasmiditan (Reyvow) max 2 tabs per day (taken at the same time) 30 days mecobalamin (vitamin B12) mcg IM xppaiarbtkap-Ld-qmdd-minerals (Women's Daily Formula) 1 tab PO DAILY omeprazole 40 mg PO DAILY onabotulinumtoxinA (Botox) 200 units IM ONCE 12 weeks oxcarbazepine 600 mg (2 x 300 mg) PO BID 30 days propranolol 10 mg PO BID 90 days ropinirole 0.25 - 0.5 mg (1 - 2 x 0.25 mg) PO BEDTIME 30 days sertraline 100 mg PO DAILY vitamin B comp and C no.3 (B Complex Plus Vitamin C) 1 cap PO DAILY HPI Comments Details: 49-yr-old female female presents for f/u of migraine and seizure. Pt reports she has had 2 recent interval seizures- both triggered by a more severe migraine. She believes the seizures were pretty strong, as she had bruising on her thighs afterwards and feels very tired/lightheaded. She believes that these were triggered by not using her regular glasses- states sometimes she just gets tired of wearing the glasses and puts them aside. Also not sleeping well will trigger a seizure. She is compliant w/ her Trileptal 600mg bid. However, at some point, her topiramate was stopped, she is unclear why, possibly was just in insurance issue when there was a change in her insurance. She states her restless legs are better since starting ropinirole but can still be bothersome and interfere with her sleep quality. She also endorses increased snoring, fatigue the. She has gained almost 25 lb in the last 9 months. She has a h/o anemia. Is compliant w/ ferrous sulfate w/ vit C- daily. Pt has unintentionally not had her f/u Botox injections. Last Botox tx was in November 2023. Reports she is having an almost daily migraine attack. Migraine characteristics: Bilateral head pressure and tension pain a/w photophobia, phonophobia, N/V, brain fog, activity intolerance, and when severe syncope and seizure activity. She never received the Reyvow, so has not tried it yet. This has a insurance prior approval until 05/13/2025. She stopped Fioricet. Current acute tx- propranolol 10mg bid prn, and ice and rest in a dark room. [facility] Medical History Depression with anxiety Asthma Chronic pain syndrome Sacroiliitis Seizure disorder Migraine Anemia Surgical History Tubal ligation status History of bilateral breast reduction surgery Gastric bypass status for obesity Family History Mother Heart problem Social History Household Members: Spouse Alcohol intake: current Alcohol intake frequency: holidays/special occasions only Comment: pt reports her baseline back pain is 10/10 Patient Tobacco Use Status: Never used Tobacco Current occupational status: disabled Physical Exam Vital Signs: Last Vital Signs Pulse 79 10/02/24 11:14 BP 94/70 10/02/24 11:14 Pulse Ox 98 10/02/24 11:14 Oxygen Delivery Method Room Air 10/02/24 11:14 BMI result Body Mass Index 35.2 Const General: cooperative and no acute distress Orientation/consciousness: patient oriented x3 Resp Effort & Inspection: normal respiratory effort and able to speak in complete sentences Neuro General: patient oriented x3 Cognition (Neuro): normal cognition Psych Appearance: grossly normal Mental Status: mental status grossly normal Speech and movement: Normal speech and movement present Affect: normal affect Attitude: cooperative Assessment & Plan Assessment & Plan (1) Seizure disorder: Code(s): G40.909 - Epilepsy, unspecified, not intractable, without status epilepticus Category: Medical (2) Restless leg syndrome: Code(s): G25.81 - Restless legs syndrome Category: Medical (3) Fatigue: Code(s): R53.83 - Other fatigue Category: Medical (4) Snoring: Code(s): R06.83 - Snoring Category: Medical (5) Chronic migraine without aura: Code(s): G43.709 - Chronic migraine without aura, not intractable, without status migrainosus Category: Medical Plan For sleep and RLS s/s: Continue Ropinirole 0.25-0.5mg q evening. We will recheck labs for common etiologies of RLS. Patient advised to undergo in-lab PSG to assess for sleep apnea and periodic limb movements of sleep. Patient may benefit from reading ?navigating life with restless leg syndrome? by Dr. Gregg. For seizure activity: Continue Oxcarbazepine 600 mg twice a day. Resume Topiramate- start at 25 mg q.h.s. for 1 week, then increase by 25 mg q.week up to 100 mg q.h.s.. We will check CBC, CMP and oxcarbazepine level. The patient does not currently drive. Previous trials: Keppra caused mood irritability despite vitamin B6 supplementation. For chronic migraine prevention: Reviewed strategies to decrease burden of associated migraine symptoms, such as green light therapy, saqib tinted migraine specific blue light blocking glasses, noise cancellation earplugs. Patient would not be a candidate to use most neuromodulation devices at this point due to breakthrough seizure activity. Resume Botox 155 units IM q 12 weeks, as pt has previously had significant reduction in her migraine frequency when treated with Botox. Continue Propranolol 10mg bid- would not increase further due to low BP and lightheadedness. Continue Sertraline- pt is not interested in trying alternate at this time. Previous migarine tx's: Amitriptyline- stopped d/t recent ? serotonin syndrome. Topiramate- up to 200 mg b.i.d. ineffective. Cymbalta before- not tolerated. ? For acute headache tx: May use Tylenol or Excedrin prn. Continue Benadryl, Zofran, Reglan prn. Trial Reyvow 100-200mg qd prn. Pt advised again to NOT drive or operate heavy machinery w/in 8 hrs of taking this. Previous acute migraine tx's: Nurtec- ineffective. Patient has a contraindication to triptans, has had a rash reaction to the zolmitriptan. Ubrelvy- ineffective. Fioricet- lost effectiveness. ? Will follow-up upon review of above and patient to follow-up in clinic in 3-6 months or sooner prn. Orders: Orders Methylmalonic Acid Today D64.9 - Anemia, unspecified, G25.81 - Restless legs syndrome, G40.909 - Epilepsy, unspecified, not intractable, without status epilepticus Homocysteine Today D64.9 - Anemia, unspecified, G25.81 - Restless legs syndrome, G40.909 - Epilepsy, unspecified, not intractable, without status epilepticus Vitamin B12 and Folate Today D64.9 - Anemia, unspecified, G25.81 - Restless legs syndrome, G40.909 - Epilepsy, unspecified, not intractable, without status epilepticus Complete Blood Count Auto Diff Today D64.9 - Anemia, unspecified, G25.81 - Restless legs syndrome, G40.909 - Epilepsy, unspecified, not intractable, without status epilepticus Comprehensive Met. Panel Today D64.9 - Anemia, unspecified, G25.81 - Restless legs syndrome, G40.909 - Epilepsy, unspecified, not intractable, without status epilepticus IRON PROFILE Today D64.9 - Anemia, unspecified, G25.81 - Restless legs syndrome, G40.909 - Epilepsy, unspecified, not intractable, without status epilepticus Ferritin Today D64.9 - Anemia, unspecified, G25.81 - Restless legs syndrome, G40.909 - Epilepsy, unspecified, not intractable, without status epilepticus Vitamin B6 Today D64.9 - Anemia, unspecified, G25.81 - Restless legs syndrome, G40.909 - Epilepsy, unspecified, not intractable, without status epilepticus Oxcarbazepine Today D64.9 - Anemia, unspecified, G25.81 - Restless legs syndrome, G40.909 - Epilepsy, unspecified, not intractable, without status epilepticus RT PSG in-lab sleep study Today G25.81 - Restless legs syndrome, G40.909 - Epilepsy, unspecified, not intractable, without status epilepticus, R06.83 - Snoring, R53.83 - Other fatigue, R63.5 - Abnormal weight gain Medications: New topiramate 1 tab qhs x's 1 wk, then 2 tabs qhs x's 1 wk, then 3 tabs qhs x's 1 wk, then 4 tabs qhs. orally bedtime; 30 days 120 tabs 3RF Changed From ropinirole administer 1-3 hours before bedtime 0.25 - 0.5 mg (1 - 2 x 0.25 mg) PO BEDTIME 30 days 60 tabs 1RF To ropinirole administer 1-3 hours before bedtime 0.25 - 0.5 mg (1 - 2 x 0.25 mg) PO BEDTIME 90 days 180 tabs 1RF From oxcarbazepine 600 mg (2 x 300 mg) PO BID 30 days 120 tabs 6RF To oxcarbazepine 600 mg (2 x 300 mg) PO BID 90 days 360 tabs 3RF From lasmiditan (Reyvow) (1 - 2 x 100 mg) max 2 tabs per day (taken at the same time) 30 days 8 tabs 1RF migraine headache To lasmiditan (Reyvow) (2 x 100 mg) 200 mg orally max 2 tabs per day (taken at the same time) PRN; 30 days 8 tabs 3RF migraine headache Refilled propranolol 10 mg PO BID 90 days 180 tabs 1RF onabotulinumtoxinA (Botox) inject 155 units IM across forehead, scalp, and neck 200 units IM ONCE 12 weeks 1 ea 3RF G43.709 - Chronic migraine without aura, not intractable, without status migrainosus Coding Level of Care Code Est Pt Level 4 (99369) Complex EM visit Add On G2211 Diagnoses Seizure disorder G40.909 Restless leg syndrome G25.81 Fatigue R53.83 Snoring R06.83 Chronic migraine without aura G43.709
[2024-10-02 11:14] VITALS: BP 94/70; PULSE 79; O2SAT 98; BMI 35.2
== END 2024-10-02 11:51 | disposition home or self-care (01) ==
PROVIDERS: Visit Provider Nurse Practitioner Family
DX: G40.909 Epilepsy, unspecified, not intractable, without status epilepticus (principal); G25.81 Restless legs syndrome; R53.83 Other fatigue; R06.83 Snoring; G43.709 Chronic migraine without aura, not intractable, without status migrainosus
CPT/HCPCS: 99214; G2211

== ENCOUNTER → 2024-10-02 10:38 | Outpatient (BNVA) | payer OTHER, SELFPAY | PROVIDERS: Visit Provider Nurse Practitioner Family | DX: G40.909 Epilepsy, unspecified, not intractable, without status epilepticus (principal); G25.81 Restless legs syndrome; G43.709 Chronic migraine without aura, not intractable, without status migrainosus; R53.83 Other fatigue; R06.83 Snoring | CPT/HCPCS: 99212 ==

== ENCOUNTER 2024-12-09 09:49 | Outpatient (AMB) | payer OTHER, SELFPAY ==
--- NOTE | 2024-12-09 09:53 | MHC.OFFVIS ---
Vital Signs 12/09/24 09:54 Height 5 ft 7 in Weight 226 lb BMI 35.4 Pulse 80 Pulse Source Pulse Oximeter Pulse Oximetry (%) 99 Oxygen Delivery Method Room Air Intake Visit Reasons: Botox Intake Note: Patient presents for botox injection Practice supplied Allergies zolmitriptan [From ZOMIG] Allergy (Intermediate, Verified 12/09/24 10:04) Migraine Medication List - Last Reconciled 12/09/24 by Gill Bonds MD acetaminophen (Tylenol) 325 mg PO QID PRN cholecalciferol (vitamin D3) (Vitamin D3) 1 tab PO DAILY clonazepam 1 mg PO BEDTIME PRN ferrous sulfate 324 mg PO DAILY lasmiditan (Reyvow) 200 mg orally max 2 tabs per day (taken at the same time) PRN; 30 days mecobalamin (vitamin B12) mcg IM gdqgqyothsux-Xc-hyac-minerals (Women's Daily Formula) 1 tab PO DAILY omeprazole 40 mg PO DAILY onabotulinumtoxinA (Botox) 200 units IM ONCE 12 weeks oxcarbazepine 600 mg (2 x 300 mg) PO BID 90 days propranolol 10 mg PO BID 90 days ropinirole 0.25 - 0.5 mg (1 - 2 x 0.25 mg) PO BEDTIME 90 days sertraline 100 mg PO DAILY topiramate 1 tab qhs x's 1 wk, then 2 tabs qhs x's 1 wk, then 3 tabs qhs x's 1 wk, then 4 tabs qhs. orally bedtime; 30 days vitamin B comp and C no.3 (B Complex Plus Vitamin C) 1 cap PO DAILY HPI Comments Details: ? 49y/o female comes for treatment of migraines with botox.She did well with Botox and has 1 migraine day a week. she used to have 20 migraine days a month and uses tylenol or excedrin migraine she did not tolerate sumatriptan, poor response to ubrelvy ??? Most frequent reported adverse reactions following injection of botox for chronic migraine include neck pain (9%), headache(5%), eyelid ptosis(4%), migraine(4%), muscular weakness(4%), musculuskeletal stiffness(4%), bronchitis(3%), injection site pain (3%), musculoskeletal pain(3%), myalgia(3%), facial paresis(2%), HTN(2%) and muscle spasms(2%) were discussed in detail. ??? Botulinum toxin typeA 200units Lot no [id number] expiration December 2026 was diluted with 4 cc of normal saline . ??? Muscles injected- ??? Frontalis 4 sites ??? Procerus 1 site ??? Radial Arm Saw Operator- 2 sites ??? Temporalis- 8 sites ??? Occipitalis- 6 sites ??? Cervical paraspinals- 4 sites ??? Trapezius- 6 sites- 10 units each ??? 5 units each in 31 site ??? Total use- 185units ??? Discarded-15units [facility] Medical History Depression with anxiety Asthma Chronic pain syndrome Sacroiliitis Seizure disorder Migraine Anemia Surgical History Tubal ligation status History of bilateral breast reduction surgery Gastric bypass status for obesity Family History Mother Heart problem Social History Household Members: Spouse Alcohol intake: current Alcohol intake frequency: holidays/special occasions only Comment: pt reports her baseline back pain is 10/10 Patient Tobacco Use Status: Never used Tobacco Current occupational status: disabled Physical Exam Vital Signs: Last Vital Signs Pulse 80 12/09/24 09:54 Pulse Ox 99 12/09/24 09:54 Oxygen Delivery Method Room Air 12/09/24 09:54 BMI result Body Mass Index 35.4 Const General: cooperative and no acute distress Orientation/consciousness: patient oriented x3 Resp Effort & Inspection: normal respiratory effort and able to speak in complete sentences Neuro General: patient oriented x3 Cognition (Neuro): normal cognition Psych Appearance: grossly normal Mental Status: mental status grossly normal Speech and movement: Normal speech and movement present Affect: normal affect Attitude: cooperative Office Procedures Botulinum toxin Injection 08165 - Migraine Procedure code (CPT) selection complete Office Meds onabotulinumtoxinA 200 unit solution for injection Performing Provider: Gill Bonds MD Performing Location: [facility] [place] [facility] Administered by: Gill Bonds MD on 12/09/24 10:32 Dose Route Admin Location Dispensed Lot Number Expiration Date [employer] 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 Orders: Orders AMB Botulinum toxin Injection Today G43.719 - Chronic migraine without aura, intractable, without status migrainosus Medications: New onabotulinumtoxinA 200 units subcut ONCE 1 ea 0RF migraine G43.719 - Chronic migraine without aura, intractable, without status migrainosus Coding Level of Care Code Est Pt Level 1 (77569) Diagnoses Intractable chronic migraine without aura and without status migrainosus G43.719 Status migrainosus presence: without status migrainosus Intractability: intractable CPT Codes Botox Injection - Botox 3: 65965 - Migraine ([id number])
[2024-12-09 09:54] VITALS: PULSE 80; O2SAT 99; BMI 35.4
== END 2024-12-09 10:41 | disposition home or self-care (01) ==
LOC: HO.HSMS 09:49
PROVIDERS: Visit Provider Psychiatry & Neurology Neurology
DX: G43.719 Chronic migraine without aura, intractable, without status migrainosus (principal)
CPT/HCPCS: 64615

== ENCOUNTER 2024-12-09 09:49 | Outpatient (REF) | payer OTHER, SELFPAY ==
[2024-12-09 18:46] LABS: MANUAL DIFF FLAG NO
[2024-12-09 19:07] LABS: Basophils Absolute Auto 0.1 X10*3/uL (0.0-0.2); Basophils Percent Auto 0.9 % (0-2); Eosinophils Percent Auto 0.7 % (0-4); Hematocrit 34.2 % (37.0-47.0); Hemoglobin 11.6 g/dl (12.0-16.0); Imm Gran Abs Auto 0.01 X10*3/uL (0.00-0.03); Imm Gran Pct Auto 0.2 % (0.0-0.4); Lymphocytes Absolute Auto 1.6 X10*3/uL (1.2-4.9); Lymphocytes Percent Auto 27.6 % (20-40); Mean Corpuscular HGB Conc 33.9 g/dl (31.0-35.0); Mean Corpuscular Hemoglobin 30.7 pg (27.0-33.0); Mean Corpuscular Volume 90.5 fL (80.0-98.0); Monocytes Absolute Auto 0.2 X10*3/uL (0.1-1.2); Monocytes Percent Auto 4.1 % (2-11); Neutrophils Absolute Auto 3.9 x10*3/uL (2.0-8.3); Neutrophils Percent Auto 66.5 % (45-73); Platelet Count 344 X10*3/uL (160-400); Red Blood Count 3.78 X10*6/uL (4.20-5.50); Red Cell Distribution Width 12.1 % (11.0-16.0); White Blood Count 5.8 X10*3/uL (4.8-10.8)
[2024-12-09 19:34] LABS: Alanine Aminotransferase 22 U/L (0-31); Alkaline Phosphatase 82 U/L (39-117); Anion Gap 12 (12-20); Aspartate Amino Transferase 25 U/L (5-31); Bilirubin Total 0.2 mg/dL (0.0-1.0); Blood Urea Nitrogen 9 mg/dL (9-16); Calcium 9.1 mg/dL (8.4-10.2); Carbon Dioxide 25 mmol/L (22-29); Chloride 110 mmol/L (96-108); Estimated Glomerular Filt Rate > 60; Glucose Random 116 mg/dL (60-115); Iron 73 mcg/dL (30-160); Percent Iron Saturation 28 % (15-50); Potassium 3.9 mmol/L (3.3-5.1); Sodium 143 mmol/L (135-145); Total Iron Binding Capacity 257 mcg/dL (228-428); Total Protein 7.4 g/dL (6.5-8.0); Unsaturated Iron Binding 184 ug/dL
[2024-12-09 19:39] LABS: Ferritin 76 ng/mL (10-250)
[2024-12-09 19:51] LABS: Folate 12.5 ng/mL (> or = 4.0); Vitamin B12 575 pg/mL (200-900)
[2024-12-13 03:24] LABS: Methylmalonic Acid 146 nmol/L (55-335)
[2024-12-13 09:44] LABS: Oxcarbazepine <1.0 mcg/mL (8.0-35.0)
[2024-12-13 18:03] LABS: Vitamin B6 7.7 ng/mL (2.1-21.7)
== END 2024-12-09 09:50 | disposition home or self-care (01) ==
LOC: HO.HKASLDS 09:49
PROVIDERS: Nurse Practitioner Family; Visit Provider Psychiatry & Neurology Neurology
DX: G43.719 Chronic migraine without aura, intractable, without status migrainosus (principal); D64.9 Anemia, unspecified; G40.909 Epilepsy, unspecified, not intractable, without status epilepticus; G25.81 Restless legs syndrome
CPT/HCPCS: 36415; 64615; 80053; 80339; 82607; 82728; 82746; 83540; 83921; 84207; 85025; 99211; J0585

== ENCOUNTER 2025-04-07 13:04 | Outpatient (AMB) | payer OTHER, SELFPAY ==
[2025-04-07 13:17] VITALS: BP 134/80; PULSE 88; O2SAT 96; BMI 37.2
--- NOTE | 2025-04-07 13:17 | A.OFFVIS_ITS ---
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 Required: No Accompanied by: Daughter Allergies zolmitriptan (From ZOMIG) Allergy (Intermediate, Verified 04/07/25 13:18) Migraine Medication List - Last Reconciled 04/07/25 by JERRI Hayes acetaminophen (Tylenol) 325 mg PO QID PRN cholecalciferol (vitamin D3) (Vitamin D3) 1 tab PO DAILY clonazepam 1 mg PO BEDTIME PRN ferrous sulfate 324 mg PO DAILY gabapentin 100 mg 2 hours before bed and 200 mg at bedtime orally bedtime; 30 days lasmiditan (Reyvow) 200 mg orally max 2 tabs per day (taken at the same time) PRN; 30 days mecobalamin (vitamin B12) mcg IM ziyeikywohqx-Ht-yygd-minerals (Women's Daily Formula) 1 tab PO DAILY omeprazole 40 mg PO DAILY onabotulinumtoxinA (Botox) 200 units IM ONCE 12 weeks oxcarbazepine 600 mg (2 x 300 mg) PO BID 90 days propranolol 10 mg PO BID 90 days ropinirole 0.25 - 0.5 mg (1 - 2 x 0.25 mg) PO BEDTIME 90 days sertraline 100 mg PO DAILY topiramate 50 mg (2 x 25 mg) PO BID 30 days vitamin B comp and C no.3 (B Complex Plus Vitamin C) 1 cap PO DAILY HPI Comments Details: 50-yr-old female female presents for f/u of migraine and seizure. Patient is accompanied by her daughter. Patient reports she is having less migraine attacks and less seizure episodes, now every other week. However every migraine attack is a/w a migraine attack. Her last seizure episode was last week, it was a full convulsive episode-again associated with severe migraine attack. She is compliant with Trileptal 600 mg b.i.d. and topiramate 50 mg b.i.d. She has resume Botox therapy, which is helping. She has received Reyvow, which does help some. Continues to also use propranolol 10 mg twice a day, ice, and rest in a dark room as needed Migraine characteristics: Bilateral head pressure and tension pain a/w photophobia, phonophobia, N/V, brain fog, activity intolerance, and when severe syncope and seizure activity. She states her restless legs are better since starting ropinirole. She has not had sleep study yet- she believes she must have missed the call regarding the appointment. She still endorses increased snoring, fatigue the. She has gained almost 25 lb in the last 9 months. She has a h/o anemia. She continues to be compliant w/ ferrous sulfate w/ vit C- daily. PENDING SALE TO [facility] Medical History Depression with anxiety Asthma Chronic pain syndrome Sacroiliitis Seizure disorder Migraine Anemia Surgical History Tubal ligation status History of bilateral breast reduction surgery Gastric bypass status for obesity Family History Mother Heart problem Social History Household Members: Spouse Alcohol intake: current Alcohol intake frequency: holidays/special occasions only Comment: pt reports her baseline back pain is 10/10 Patient Tobacco Use Status: Never used Tobacco Current occupational status: disabled Physical Exam Vital Signs: Last Vital Signs Pulse 88 04/07/25 13:17 BP 134/80 04/07/25 13:17 Pulse Ox 96 04/07/25 13:17 Oxygen Delivery Method Room Air 04/07/25 13:17 BMI result Body Mass Index 37.2 Const General: cooperative and no acute distress Orientation/consciousness: patient oriented x3 Resp Effort & Inspection: normal respiratory effort and able to speak in complete sentences Neuro General: patient oriented x3 Cranial nerves: Yes CN's II-XII intact bilaterally Cognition (Neuro): normal cognition Psych Appearance: grossly normal Mental Status: mental status grossly normal Speech and movement: Normal speech and movement present Affect: normal affect Attitude: cooperative Assessment & Plan Assessment & Plan (1) Chronic migraine without aura: Code(s): G43.709 - Chronic migraine without aura, not intractable, without status migrainosus Category: Medical Qualifiers: Intractability: intractable Status migrainosus presence: without status migrainosus Qualified Code(s): G43.719 - Chronic migraine without aura, intractable, without status migrainosus (2) Seizure disorder: Code(s): G40.909 - Epilepsy, unspecified, not intractable, without status epilepticus Category: Medical (3) Restless leg syndrome: Code(s): G25.81 - Restless legs syndrome Category: Medical (4) Fatigue: Code(s): R53.83 - Other fatigue Category: Medical (5) Snoring: Code(s): R06.83 - Snoring Category: Medical Plan For sleep and RLS s/s: Continue Ropinirole 0.25-0.5mg q evening. Check CBC, CMP and iron studies today Patient is again advised to undergo in-lab PSG to assess for sleep apnea and periodic limb movements of sleep. * We will request miss sleep study appointment be rescheduled Patient may benefit from reading ?navigating life with restless leg syndrome? by Dr. Gregg. For seizure activity: Continue Oxcarbazepine 600 mg twice a day. Continue topiramate 50 mg twice a day Check CBC, CMP today The patient does not currently drive. Previous trials: Keppra caused mood irritability despite vitamin B6 supplementation. For chronic migraine prevention: Continue Botox 155 units IM q 12 weeks, as pt has previously had significant reduction in her migraine frequency when treated with Botox. Continue topiramate 50 mg twice a day. Continue Propranolol 10mg bid- would not increase further due to low BP and lightheadedness. Continue Sertraline- pt is not interested in trying alternate at this time. Previous migraine tx's: Amitriptyline- stopped d/t recent ? serotonin syndrome. Topiramate- up to 200 mg b.i.d. ineffective. Cymbalta before- not tolerated. ? For acute headache tx: May use Tylenol or Excedrin prn. Continue Benadryl, Zofran, Reglan prn. Continue Reyvow 100-200mg qd prn. Pt advised again to NOT drive or operate heavy machinery w/in 8 hrs of taking this. Start Depakote 250 mg at onset of migraine, and may repeat every 4 hours x2-in hopes this reduces migraine severity and prevents seizure activity triggered by severe migraine. Previous acute migraine tx's: Nurtec- ineffective. Patient has a contraindication to triptans, has had a rash reaction to the zolmitriptan. Ubrelvy- ineffective. Fioricet- lost effectiveness. ? Will follow-up upon review of above and patient to follow-up in clinic in 3-6 months or sooner prn. Orders: Orders Ferritin Today D64.9 - Anemia, unspecified, G40.909 - Epilepsy, unspecified, not intractable, without status epilepticus IRON PROFILE Today D64.9 - Anemia, unspecified, G40.909 - Epilepsy, unspecified, not intractable, without status epilepticus Complete Blood Count Auto Diff Today D64.9 - Anemia, unspecified, G40.909 - Epilepsy, unspecified, not intractable, without status epilepticus Comprehensive Met. Panel Today D64.9 - Anemia, unspecified, G40.909 - Epilepsy, unspecified, not intractable, without status epilepticus Medications: New oxcarbazepine (Trileptal) 600 mg PO BID 180 tabs 3RF 90 days topiramate 50 mg PO BID 180 tabs 1RF 90 days divalproex (Depakote) take at the 1st sign of migraine, may repeat in 4 hrs x's 2 (max of 3 tabs per day). 250 mg PO TID PRN 21 tabs 6RF migraine attack 30 days Changed From metoclopramide HCl 5 - 10 mg (1 - 2 x 5 mg) PO Q4-6H 14 days PRN 10 tabs 1RF migraine headache To metoclopramide HCl 5 - 10 mg (1 - 2 x 5 mg) PO Q4-6H PRN 30 tabs 1RF migraine headache 30 days Refilled ropinirole administer 1-3 hours before bedtime 0.25 - 0.5 mg (1 - 2 x 0.25 mg) PO BEDTIME 180 tabs 1RF 90 days propranolol 10 mg PO BID 180 tabs 1RF 90 days Discontinued oxcarbazepine Discontinued Reason: Doctor's Order 600 mg (2 x 300 mg) PO BID 90 days 360 tabs 3RF topiramate A.m. and evening Discontinued Reason: Doctor's Order 50 mg (2 x 25 mg) PO BID 30 days 120 tabs 3RF Coding Level of Care Code Est Pt Level 4 (85370) Complex EM visit Add On G2211 Diagnoses Intractable chronic migraine without aura and without status migrainosus G43.719 Intractability: intractable Status migrainosus presence: without status migrainosus Seizure disorder G40.909 Restless leg syndrome G25.81 Fatigue R53.83 Snoring R06.83
--- OUTSIDE RECORDS SUMMARY | 2025-04-07 14:22 | XMS_ITS | Clinical Summary ---
Author Organization [facility] Address [address] [place] [address] Care Team Providers Care Investment Banker Name Role Phone Unavailable Primary Care Provider Unavailabl e Allergies Active Allergy Reactions Criticality Noted Date Comments Zolmitriptan 04/29/2014 Medications butalbital-acet aminophen-caffe ine 50-325-40 MG tablet PLEASE SEE ATTACHED FOR DETAILED DIRECTIONS 3 Active acetaminophen (Tylenol) 325 MG tablet TAKE 1 TABLET BY MOUTH 4 TIMES DAILY NEEDED FOR PAIN. 3 Active amitriptyline (Elavil) 25 MG tablet Take 25 mg by mouth at bedtime. 3 Active clonazePAM (KlonoPIN) 1 MG tablet Take 1 mg by mouth if needed at bedtime. 3 Active cyclobenzaprine (Flexeril) 5 MG tablet TAKE 1 TABLET BY MOUTH AT BEDTIME NEEDED FOR MUSCLE SPASM. 3 Active Trileptal 300 MG/5ML suspension PLEASE SEE ATTACHED FOR DETAILED DIRECTIONS 3 Active propranolol (Inderal) 10 MG tablet Take 10 mg by mouth 2 times daily. 3 Active sertraline (Zoloft) 100 MG tablet Take 100 mg by mouth in the morning. 3 Active topiramate (Topamax) 100 MG tablet Take 100 mg by mouth 2 times daily. 3 Active Ubrelvy 100 MG tablet TAKE 1/2 TO 1 TABLET NEEDED AT ONSET OF MIGRAINE *MAY REPEAT IN 2 HRS *KAIN NAPROXEN 3 Active Active Problems No known active problems Family History Medical History Relation Name Comments Glaucoma Father Glaucoma Mother Relation Name Status Comments Father Mother Social History Tobacco Use Types Packs/Day Years Used Date Smoking Tobacco: Never Smokeless Tobacco: Never Tobacco Cessation:Counseling Given: Not Answered Comments Unknown Sex and Gender Information Value Date Recorded Sex Assigned at Female 07/24/2022 10:24 AM EDT Legal Sex Female 10:24 AM EDT Gender Identity Female 07/24/2022 10:24 AM EDT Sexual Orientation Choose not to disclose 2021 10:24 AM EDT Plan of Treatment Health Maintenance Due Date Last Done Comments CT Colonography 1973 Colonoscopy 1973 Colorectal Cancer Screening 1973 Depression Screening 1973 FIT DNA/Cologuard 1973 FIT 1973 FOBT 1973 HIV Screening 1973 SDOH Screening 1973 Sigmoidoscopy 1973 Disability Screening 1973 Alcohol/Substance Use Screening 1985 Family Planning (PISQ) 1988 Hepatitis C Screening 1991 Hepatitis B Vaccines (1 of 3 - 19+ 3-dose series) 1992 Pap Smear 1994 Cervical Cancer Screening 2003 HPV/Cotest 2003 Mammogram 2013 Pneumococcal Vaccine: 50+ Years (1 of 1 - PCV) 2023 Zoster Vaccines (1 of 2) 2023 COVID-19 Vaccine ( - season) 2024 02/14/2022, 03/03/2021, 02/03/2021 Tobacco Screening 08/23/2024 08/23/2023 Influenza Vaccine (#1) 2025 , 08/23/2021, 08/07/2020, Additional history exists DTaP/Tdap/Td Vaccines (3 - Td or Tdap) 03/07/2031 03/07/2021, 10/25/2010 RSV Patients and Patients Aged 60 years or older (1 - 1-dose 75+ series) 2048 HIB Vaccines Aged Out No longer eligi ble based on patient's age to complete this topic HPV Vaccines Aged Out No longer eligi ble based on patient's age to complete this topic Hepatitis A Vaccines Aged Out No long er eligible based on patient's age to complete this topic IPV Vaccines Aged Out No longer eligi ble based on patient's age to complete this topic Meningococcal B Vaccine Aged Out No l onger eligible based on patient's age to complete this topic Meningococcal Vaccine Aged Out No george brandie eligible based on patient's age to complete this topic RSV under 20 months Aged Out No longe r eligible based on patient's age to complete this topic Rotavirus Vaccines Aged Out No longer eligible based on patient's age to complete this topic [place] [address] [place] [address] ACO
--- OUTSIDE RECORDS SUMMARY | 2025-04-07 14:22 | XMS_ITS | Clinical Summary ---
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 4 Active albuterol HFA (PROAIR HFA ; PROVENTIL HFA ; VENTOLIN HFA) 90 mcg/actuation inhaler Inhale 2 Puffs into the lungs every 4 hours as needed for Cough or Wheezing. 4 Active sertraline (ZOLOFT) 100 mg tablet Take 0.5 Tablets by mouth daily. 3 Active cholecalciferol (VITAMIN D-3) 50 mcg (2,000 unit) tablet Take 1 tablet (2,000 Units total) by mouth 1 (one) time each day. 4 Active OXcarbazepine (TRILEPTAL) 300 mg tablet Take 2 tablets (600 mg total) by mouth 2 (two) times a day. 4 Active pyridoxine (B-6) 50 mg tablet 2 Active clonazePAM (KlonoPIN) 2 mg tablet 0.5 Tablets at bedtime. 2 Active B complex tablet Take 1 tablet by mouth daily. 1 Active ferrous sulfate 325 mg (65 mg elemental iron) tablet Take 325 mg by mouth daily. 9 Active multivitamin with minerals (Spectravite Advanced Formula) 18-400 mg-mcg tablet tablet Take 1 tablet by mouth 1 (one) time each day. 9 Active magnesium oxide (MAG-OX) 400 mg (241.3 elemental magnesium) tabletIndicatio ns:Fibromyalgia TAKE 1 TABLET BY MOUTH EVERYDAY AT BEDTIME 90 tablet 1 4 Active doxepin (SINEquan) 100 mg capsule Take 1 capsule (100 mg total) by mouth at bedtime as needed. 4 Active oxyCODONE (ROXICODONE) 5 mg immediate release tabletIndicatio ns:Fibromyalgia ,Chronic bilateral low back pain without sciatica Take 1 tablet (5 mg total) by mouth 2 (two) times a day if needed for severe pain. Max Daily Amount: 10 mg 56 tablet 5 Active oxyCODONE (ROXICODONE) 5 mg immediate release tabletIndicatio ns:Fibromyalgia ,Chronic bilateral low back pain without sciatica Take 1 tablet (5 mg total) by mouth 2 (two) times a day if needed for severe pain. Max Daily Amount: 10 mg 56 tablet 5 03/30/20 25 Discontinu ed(Reorder ) Active Problems Problem Noted Date Diagnosed Date Fibromyalgia 10/31/2023 Pelvic pain 02/23/2022 Overview (07/02/2024): Last Assessment & Plan: Discussed potential causes of pelvic pain with the patient including infections, ovarian cysts, endometriosis, interstitial cystitis, irritable bowel, and MSK etiologies. Pelvic US ordered Discussed relief measures for pain and reviewed warning signs and when to call, including fever, a significant increase in pain that might represent a rupture, torsion, or heavy vaginal bleeding. Hot flashes due to menopause 02/23/2022 Overview (07/02/2024): Last Assessment & Plan: Reviewed behavioral modifications. Patient asked to return to discuss further if symptoms continue to be very bothersome. Scaphoid fracture 10/07/2021 Chronic bilateral low back pain without sciatica 06/13/2019 Episodic tension-type headache, not intractable 09/05/2018 Lumbar herniated disc 07/23/2018 Vitamin B12 deficiency 10/01/2017 Anemia 01/19/2017 Seizure disorder ([facility] V24, [facility] V28) 03/25 Insomnia 12/28/2014 Overview (07/02/2024): 09/2021 Home Sleep Study did not reveal sleep apnea or nocturnal hypoxia. Chest pain 12/07/2014 Anxiety and depression 03/30/2014 Lumbago 03/30/2014 Vitamin D deficiency 10/31/2012 Abdominal pain 09/12/2012 Urinary frequency 09/12/2012 Urinary urgency 08/29/2012 Migraine 10/25/2010 Asthma Resolved Problems Problem Noted Date Diagnosed Date Resolved Date Anxiety and depression 08/12 Encounters Date Type Department Care Team Description 02/03/2025 10:45 AM EDT Office Visit Internal Medicine [address] [phone] Antoinette Bull PA Fibromyalgia (Primary Dx); Chronic bilateral low back pain, unspecified whether sciatica present 01/27/2025 Telephone Internal Medicine [address] [phone] Erlinda Menon MA 01/14/2025 Telephone Internal Medicine [address] [phone] Antoinette Bull PA Anemia; Requesting Bloodwork 01/09/2025 Telephone Internal [address] [phone] Radha Steward MA Request For Order(s) ([facility] - Health Status Report /) 01/09/2025 Telephone Internal Medicine [address] [phone] Radha Steward MA from Last 3 Months Immunizations Name Administration Dates Next Due Influenza Quadravalent, MDCK , 0.5ml, preservative free (Flucelvax) 6mo and older 09/28/2023,08/23/2021,08/07/2020 Influenza Quadravalent, MDCK , 0.5ml, with preservative (Flucelvax) 6mo and older 07/08/2018 Influenza trivalent, with pr eservative (Fluzone; Afluria) 6mo and older 07/14/2016,08/13/2014 PPD Test 12/01/2014 Tdap Tetanus diptheria acell ular pertussis (Boostrix; Adacel) 7yo and older 03/07/2021,10/25/2010 Surgical History Surgery Date Site/Laterality Comments GASTRIC BYPASS 2005 PROCEDURE: GASTRIC BYPASS FOR OBESIT BREAST REDUCTION PROCEDURE: MS BREAST REDUCTION TUBAL LIGATION PROCEDURE: HISTORICAL TUBAL LIGATION ENDOMETRIAL ABLATION 12/27/2012 PROCEDURE: MS ENDOMETRIAL ABLTJ THERMAL W/O HYSTEROSCOPIC GUID; COMMENT: Novasure OTHER SURGICAL HISTORY 02/08/2024 PROCEDURE: LAPAROSCOPY, SURGICAL/HYSTERECTOMY; COMMENT: robotic asissted hyst with salpingectomy HYSTERECTOMY 02/08/2024 PROCEDURE: HISTORICAL HYSTERECTOMY; COMMENT: Robotic assisted hysterectomy with bilateral salpingectomy and cystoscopy 02/08/[address] Agarwal Medical History Medical History Date Comments Migraine 10/25/2010 DX:Migraine Abdominal pain 09/12/2012 DX:Abdominal ector n Urinary frequency 09/12/2012 DX:Urinary lolita quency Vitamin B12 deficiency 10/01/2017 DX:Vitami n B12 deficiency Lumbar herniated disc 07/23/2018 DX:Lumbar herniated disc Episodic tension-type headac he, not intractable 09/05/2018 DX:Episodic tension-type hea dache, not intractable Chronic bilateral low back p ain without sciatica 06/13/2019 DX:Chronic bilateral low holly k pain without sciatica Major depressive disorder, r ecurrent, severe with psychotic features (CMS/HCC V24, CMS/HCC V28) 07/18/2019 DX:Major depressive disorde r, recurrent, severe with psychotic features ([facility]) Fibromyalgia DX:Fibromyalgia Asthma Anxiety and depression Family History Medical History Relation Name Comments No Known Problems Brother 1 No Known Problems Brother 2 No Known Problems Daughter 1 No Known Problems Daughter 2 No Known Problems Daughter 3 Hypertension Father Other: Lupus Maternal Grandfather No Known Problems Maternal Grandmother Cataracts Mother glaucoma, HTN Ovarian cancer Mother's side Heart attack Paternal Grandfather Diabetes Paternal Grandmother No Known Problems Son Stomach cancer Uncle maternal uncl e Blindness Neg Hx Breast cancer Neg Hx Colon cancer Neg Hx Macular degeneration Neg Hx Strabismus Neg Hx Stroke Neg Hx Uterine cancer Neg Hx Relation Name Status Comments Brother 1 Alive Brother 2 Alive Daughter 1 Alive 1988; A&W Daughter 2 Alive 1990; A&W Daughter 3 Alive 1992; A&W Father Alive Maternal Grandfather Maternal Grandmother Mother (Age 72) Heart Fail ure Mother's side Paternal Grandfather Paternal Grandmother Son Alive 1996; A&W Uncle Social History Tobacco Use Types Packs/Day Years Used Date Smoking Tobacco: Never Smokeless Tobacco: Never Tobacco Cessation:Counseling Given: Not Answered Alcohol Use Standard Drinks/Week Comments Never 0 (1 standard drink = 0.6 oz pur e alcohol) Comments Unknown Sex and Gender Information Value Date Recorded Sex Assigned at Female 12/28/2024 8:24 AM EDT Legal Sex Female 4:52 AM EST Gender Identity Female 12/28/2024 8:24 AM EDT Sexual Orientation Straight 12/28/2024 8: 24 AM EDT Obstetrics History Last Filed Vital Signs Vital Sign Reading Time Taken Comments Blood Pressure 132/82 02/03/2025 10:17 AM EDT Pulse 64 02/03/2025 10:17 AM EDT Temperature 36.4 C (97.5 F) 02/03/2025 10:17 AM EDT Respiratory Rate 18 12/28/2024 7:21 AM EDT Oxygen Saturation 98% 02/03/2025 10:17 AM EDT Inhaled Oxygen Concentration - - Weight 98.9 kg (218 lb) 02/03/2025 10:17 AM EDT Height 170.2 cm (5' 7 ) 02/03/2025 10:17 AM EDT Body Mass Index 34.14 02/03/2025 10:17 AM EDT Plan of Treatment Upcoming Encounters Date Type Department Care Team (Late st Contact Info) Description 05/06/2025 11:15 AM EDT Office Visit Internal Medicine - [place] [address] [facility] [address] [place] [phone] Antoinette Bull, PA [address] [place] [address] Health Maintenance Due Date Last Done Comments Breast Cancer Screening 1973 Hepatitis B Vaccines (1 of 3 - 19+ 3-dose series) 1992 Pneumococcal Vaccine: 50+ Years (1 of 2 - PCV) 1992 Colorectal Cancer Screening: Colonoscopy 09/02/2022 Social Influencers of Health Screening 09/02/2022 Zoster Vaccines (1 of 2) 2023 COVID-19 Vaccine (4 - season) 2024 02/14/2022, 03/03/2021, 02/03/2021 Depression Screening 09/28/2024 09/28/2023 Cervical Cancer Screening: Pap Smear 02/23/2025 02/23/2022, 02/23/2022 Influenza Vaccine (#1) 2025 , 08/23/2021, 08/07/2020, Additional history exists Cholesterol Screening (Lipid Panel) 01/16/2030 01/16/2025, 11/01/2023 DTaP,Tdap,and Td Vaccines (3 - Td or Tdap) 03/07/2031 03/07/2021, 10/25/2010 HIV Screening Completed 05/25/2011 Hepatitis C Screening Completed 05/25/2011 HIB Vaccines Aged Out No longer eligi [...] on patient's age to complete this topic MMR Vaccines Aged Out No longer eligi ble based on patient's age to complete this topic Meningococcal ACWY Vaccine Aged Out N o longer eligible based on patient's age to complete this topic Meningococcal B Vaccine Aged Out No l onger eligible based on patient's age to complete this topic RSV Immunization Patients Under 20 months Aged Out No longer eligible based on patient's age to complete this topic Varicella Vaccines Aged Out No longer eligible based on patient's age to complete this topic Procedures Procedure Name Priority Date/Time Associated Diagnosis Comments TOXASSURE SELECT 13 DRUGS, URINE Routine 01/16/2025 12:10 PM EDT Fibromyalgia INTERFERON GAMMA INTERPRETATION Routine 01/16/2025 12:02 PM EDT Screening-pulmonary TB CBC WITH AUTO DIFFERENTIAL Routine 01/16/2025 12:02 PM EDT Health care maintenance INTERFERON GAMMA ANTIGEN 2 Routine 01/16/2025 12:02 PM EDT Screening-pulmonary TB INTERFERON GAMMA ANTIGEN 1 Routine 01/16/2025 12:02 PM EDT Screening-pulmonary TB INTERFERON GAMMA MITOGEN Routine 01/16/2025 12:02 PM EDT Screening-pulmonary TB INTERFERON GAMMA NIL Routine 01/16/2025 12:02 PM EDT Screening-pulmonary TB FOLATE Routine 01/16/2025 12:02 PM EDT Health care maintenance IRON Routine 01/16/2025 12:02 PM EDT Health care maintenance THYROID STIMULATING HORMONE Routine 01/16/2025 12:02 PM EDT Health care maintenance VITAMIN B12 Routine 01/16/2025 12:02 PM EDT Vitamin B12 deficiency Health care maintenance VITAMIN D 25 HYDROXY Routine 01/16/2025 12:02 PM EDT Health care maintenance MAGNESIUM Routine 01/16/2025 12:02 PM EDT Health care maintenance LIPID PANEL WITH REFLEX TO DIRECT LDL Routine 01/16/2025 12:02 PM EDT Health care maintenance HEMOGLOBIN A1C Routine 01/16/2025 12:02 PM EDT Health care maintenance FERRITIN Routine 01/16/2025 12:02 PM EDT Health care maintenance COMPREHENSIVE METABOLIC PANEL Routine 01/16/2025 12:02 PM EDT Health care maintenance CBC AND DIFFERENTIAL Routine 01/16/2025 12:02 PM EDT Health care maintenance INTERFERON GAMMA FOR TB, QUALITATIVE Routine 01/16/2025 12:02 PM EDT Screening-pulmonary TB DEPRESSION SCREENING Routine 09/28/2023 PAP SMEAR Routine 02/23/2022 HEPATITIS C SCREENING Routine 05/25/2011 HIV SCREENING Routine 05/25/2011 from Last 3 Months or Most Recently Relevant to Health Maintenance Results * Compliance drug screen select, 13 drugs, urine (01/16/2025 12:10 PM EDT) Summary Report FINAL 01/23/2025 4:05 PM EDT [facility] Comment: TOXASSURE SELECT 13 (MW) Test Result Flag Units Drug Present 7-aminoclonazepam 141 ng/mg creat 7-aminoclonazepam is an expected metabolite of clonazepam. Source of clonazepam is a scheduled prescription medication. Oxymorphone 363 ng/mg creat Noroxycodone 1461 ng/mg creat Noroxymorphone 439 ng/mg creat Oxymorphone, noroxycodone and noroxymorphone are expected metabolites of oxycodone. Noroxymorphone is an expected metabolite of oxymorphone. Sources of oxycodone and/or oxymorphone include scheduled prescription medications. Test Result Flag Units Ref Range Creatinine 83 mg/dL >=20 Declared Medications: Medication list was not provided. For clinical consultation, please call . Urine Urine specimen from urethra / Unknown Non-blood Collection / Unknown 01/16/2025 12:10 PM EDT 01/16/2025 1:47 PM EDT Narrative [facility] - 01/23/2025 4:05 PM EDT Performed at: 01 - [employer] [address] [place] [id number] Quarry Plant Crusher Operator: Aruna Jackson [facility], Phone: [phone] Specimen Comment: [facility], [facility] FLEX or MAT drug testing: Specimen Comment: -Technical component - Data analysis performed at Specimen Comment: [facility], [address] [place] [address], [place], [address]. Specimen Comment: [phone]. [employer]ar[employer] Plant Crusher Operator Julissa Leonard MD Antoinette REID LAB URINE ORDERABLES Fin al Result [facility] * Interferon gamma interpretation (01/16/2025 12:02 PM EDT) [facility] Quantiferon Plus Interpretation Negative Negative LAB CHEMISTRY METHOD 01/17/2025 1:03 PM EDT [facility] Blood Venous blood specimen / Unknown Venipuncture / Unknown 01/16/2025 12:02 PM EDT 01/16/2025 1:46 PM EDT Antoinette REID LAB BLOOD ORDERABLES Fin al Result Performing Organization Address City/[facility] Co de Phone Number [facility] [address] [place] [address], [place] [phone] * Interferon gamma antigen 2 (01/16/2025 12:02 PM EDT) Blood Venous blood specimen / Unknown Venipuncture / Unknown 01/16/2025 12:02 PM EDT 01/16/2025 1:46 PM EDT Antoinette REID LAB BLOOD ORDERABLES Fin al Result Performing Organization Address [facility]/ZIP Co de Phone Number [facility] [address] [place] [address], [place] [phone] * Inteferon gamma antigen 1 (01/16/2025 12:02 PM EDT) Blood Venous blood specimen / Unknown Venipuncture / Unknown 01/16/2025 12:02 PM EDT 01/16/2025 1:46 PM EDT us Antoinette REID LAB BLOOD ORDERABLES Fin al Result Performing Organization Address City/[facility]/ZIP Co de Phone Number [facility] [address] [place] [address], [place] [phone] * Interferon gamma mitogen (01/16/2025 12:02 PM EDT) Blood Venous blood specimen / Unknown Venipuncture / Unknown 01/16/2025 12:02 PM EDT 01/16/2025 1:46 PM EDT Antoinetet REID LAB BLOOD ORDERABLES Fin al Result Performing Organization Address City/[facility]/ZIP Co de Phone Number [facility] [address] [place] [address], [place] [phone] * Interferon gamma NIL (01/16/2025 12:02 PM EDT) Blood Venous blood specimen / Unknown Venipuncture / Unknown 01/16/2025 12:02 PM EDT 01/16/2025 1:46 PM EDT Antoinette REID LAB BLOOD ORDERABLES Fin al Result Performing Organization Address [facility] de Phone Number [facility] [address] [place] [address], [place] [phone] * Lipid panel with reflex to direct LDL (01/16/2025 12:02 PM EDT) Cholesterol 156 0 - 200 mg/dL LAB CHEMISTRY METHOD 01/16/2025 2:46 PM EDT [facility] Triglycerides 79 0 - 150 mg/dL LAB CHEMISTRY METHOD 01/16/2025 2:46 PM EDT [facility] HDL 71 >=40 mg/dL LAB CHEMISTRY METHOD 01/16/2025 2:46 PM EDT [facility] LDL Calculated 69 0 - 100 mg/dL LAB CHEMISTRY METHOD 01/16/2025 2:46 PM EDT [facility] VLDL Cholesterol Mario 15.8 mg/dL LAB CHEMISTRY METHOD 01/16/2025 2:46 PM EDT [facility] Non HDL Chol. (LDL+VLDL) 85 <145 mg/dL LAB CHEMISTRY METHOD 01/16/2025 2:46 PM EDT [facility] Chol/HDL Ratio 2.2 0.0 - 4.4 LAB CHEMISTRY METHOD 01/16/2025 2:46 PM EDT [facility] Blood Venous blood specimen / Unknown Venipuncture / Unknown 01/16/2025 12:02 PM EDT 01/16/2025 1:47 PM EDT Antoinette REID LAB BLOOD ORDERABLES Fin al Result [facility] [address] [place] [address], * (ABNORMAL) CBC auto differential (01/16/2025 12:02 PM EDT) WBC 6.0 4.8 - 10.8 K/mcL LAB HEMETOLOGY METHOD 01/16/2025 2:[address] [facility] RBC 3.70(L) 3.80 - 4.80 M/mcL LAB HEMETOLOGY METHOD 01/16/2025 2:[address] [facility] Hemoglobin 11.2(L) 11.5 - 16.0 g/dL LAB HEMETOLOGY METHOD 01/16/2025 2:[address] [facility] Hematocrit 33.4(L) 35.0 - 47.0 % LAB HEMETOLOGY METHOD 01/16/2025 2:[address] [facility] MCV 91.3 79.0 - 98.0 FL LAB HEMETOLOGY METHOD 01/16/2025 2:[address] [facility] MCH 30.6 27.0 - 32.0 pcg LAB HEMETOLOGY METHOD 01/16/2025 2:[address] [facility] MCHC 33.5 32.0 - 37.0 g/dL LAB HEMETOLOGY METHOD 01/16/2025 2:[facility] RDW 12.1 11.0 - 15.0 % LAB HEMETOLOGY METHOD 01/16/2025 2:19 PM EDT [facility] Platelets 305 130 - 400 K/mcL LAB HEMETOLOGY METHOD 01/16/2025 2:[address] [facility] MPV 10.2 7.0 - 11.0 FL LAB HEMETOLOGY METHOD 01/16/2025 2:19 PM EDT [facility] NRBC 0.0 <1.0 % LAB HEMETOLOGY METHOD 01/16/2025 2:19 PM [facility] NRBC Absolute 0.00 <0.10 K/mcL LAB HEMETOLOGY METHOD 01/16/2025 2:19 PM [facility] Neutrophils Relative 42.9 % LAB HEMETOLOGY METHOD 01/16/2025 2:19 [facility] Lymphocytes Relative 47.7 % LAB HEMETOLOGY METHOD 01/16/2025 2:[address] [facility] Monocytes Relative 7.0 % LAB HEMETOLOGY METHOD 01/16/2025 2:[address] [facility] Eosinophils Relative 1.0 % LAB HEMETOLOGY METHOD 01/16/2025 2:[address] [facility] Basophils Relative 1.2 % LAB HEMETOLOGY METHOD 01/16/2025 2:19 PM T [facility] Immature Granulocytes Relative 0.2 % LAB HEMETOLOGY METHOD 01/16/2025 2:19 PM [facility] Neutrophils Absolute 2.57 1.50 - 7.00 K/mcL LAB HEMETOLOGY METHOD 01/16/2025 2:19 PM [facility] Lymphocytes Absolute 2.85 1.00 - 5.00 K/mcL LAB HEMETOLOGY METHOD 01/16/2025 2:19 PM EDT [facility] Monocytes Absolute 0.42 0.20 - 1.00 K/mcL LAB HEMETOLOGY METHOD 01/16/2025 2:19 PM EDT [facility] Eosinophils Absolute 0.06 0.00 - 0.50 K/mcL LAB HEMETOLOGY METHOD 01/16/2025 2:19 PM EDT [facility] Basophils Absolute 0.07 0.00 - 0.20 K/mcL LAB HEMETOLOGY METHOD 01/16/2025 2:19 PM EDT [facility] Immature Granulocytes Absolute 0.01 0.00 - 0.03 K/mcL LAB HEMETOLOGY METHOD 01/16/2025 2:19 PM EDT [facility] Blood Venous blood specimen / Unknown Venipuncture / Unknown 01/16/2025 12:02 PM EDT 01/16/2025 1:48 PM EDT Antoinette REID LAB BLOOD ORDERABLES Fin al Result [facility] [address] [place] [address], [place] [phone] * (ABNORMAL) Vitamin D 25 hydroxy (01/16/2025 12:02 PM EDT) Vit D, 25-Hydroxy 24.2(L) 30.0 - 80.0 ng/mL LAB CHEMISTRY METHOD 01/16/2025 4:13 PM EDT [facility] Blood Venous blood specimen / Unknown Venipuncture / Unknown 01/16/2025 12:02 PM EDT 01/16/2025 1:47 PM EDT Antoinette REID LAB BLOOD ORDERABLES Fin al Result [facility] [address] [place] [address], [place] [phone] * Thyroid stimulating hormone (01/16/2025 12:02 PM EDT) TSH 0.70 0.40 - 4.00 mcIU/mL LAB CHEMISTRY METHOD 01/16/2025 4:13 PM EDT [facility] Blood Venous blood specimen / Unknown Venipuncture / Unknown 01/16/2025 12:02 PM EDT 01/16/2025 1:47 PM EDT Antoinette REID LAB BLOOD ORDERABLES Fin al Result [facility] [address] [place] [address], [place] [phone] * Magnesium (01/16/2025 12:02 PM EDT) Magnesium 2.4 1.9 - 2.6 mg/dL LAB CHEMISTRY METHOD 01/16/2025 2:46 PM EDT [facility] Blood Venous blood specimen / Unknown Venipuncture / Unknown 01/16/2025 12:02 PM EDT 01/16/2025 1:47 PM EDT Antoinette REID LAB BLOOD ORDERABLES Fin al Result [facility] [address] [place] [address], [place] [phone] * Iron (01/16/2025 12:02 PM EDT) Iron 91 40 - 150 mcg/dL LAB CHEMISTRY METHOD 01/16/2025 2:46 PM EDT [facility] Blood Venous blood specimen / Unknown Venipuncture / Unknown 01/16/2025 12:02 PM EDT 01/16/2025 1:47 PM EDT Antoinette REID LAB BLOOD ORDERABLES Fin al Result [facility] [address] [place] [address], [place] [phone] * Hemoglobin A1c (01/16/2025 12:02 PM EDT) [facility] Hemoglobin A1C 5.0 <6.5 % LAB CHEMISTRY METHOD 01/16/2025 9:54 PM EDT [facility] Mean Bld Glu Estim. 97 mg/dL LAB CHEMISTRY METHOD 01/16/2025 9:54 PM EDT [facility] Blood Venous blood specimen / Unknown Venipuncture / Unknown 01/16/2025 12:02 PM EDT 01/16/2025 1:48 PM EDT Antoinette REID LAB BLOOD ORDERABLES Fin al Result Performing Organization Address City/[facility]/ZIP Co de Phone Number [facility] [address] [place] [address], [place] [phone] * Folate (01/16/2025 12:02 PM EDT) [facility] Folate 16.3 2.8 - 17.0 ng/ml LAB CHEMISTRY METHOD 01/16/2025 3:09 PM EDT [facility] Blood Venous blood specimen / Unknown Venipuncture / Unknown 01/16/2025 12:02 PM EDT 01/16/2025 1:47 PM EDT us Antoinette REID LAB BLOOD ORDERABLES Fin al Result [facility] [address] [place] [address], [place] [phone] * Ferritin (01/16/2025 12:02 PM EDT) [facility] Ferritin 62 8 - 252 ng/mL LAB CHEMISTRY METHOD 01/16/2025 3:09 PM EDT [facility] Blood Venous blood specimen / Unknown Venipuncture / Unknown 01/16/2025 12:02 PM EDT 01/16/2025 1:47 PM EDT us Antoinette REID LAB BLOOD ORDERABLES Fin al Result Performing Organization Address [facility] Co de Phone Number [facility] [address] [place] [address], [place] [phone] * (ABNORMAL) Vitamin B12 (01/16/2025 12:02 PM EDT) [facility] Vitamin B-12 >2,000(H) 250 - 900 pcg/mL LAB CHEMISTRY METHOD 01/16/2025 3:09 PM EDT [facility] Blood Venous blood specimen / Unknown Venipuncture / Unknown 01/16/2025 12:02 PM EDT 01/16/2025 1:47 PM EDT us Antoinette REID LAB BLOOD ORDERABLES Fin al Result Performing Organization Address [facility] de Phone Number [facility] [address] [place] [address], [place] [phone] * Comprehensive metabolic panel (01/16/2025 12:02 PM EDT) [facility] Sodium 137 133 - 145 mmol/L LAB CHEMISTRY METHOD 01/16/2025 2:46 PM EDT [facility] Potassium 4.2 3.5 - 5.5 mmol/L LAB CHEMISTRY METHOD 01/16/2025 2:46 PM EDT [facility] Chloride 102 96 - 110 mmol/L LAB CHEMISTRY METHOD 01/16/2025 2:46 PM EDT [facility] CO2 28 21 - 32 mmol/L LAB CHEMISTRY METHOD 01/16/2025 2:[address] [facility] Anion Gap 7 3 - 11 LAB CHEMISTRY METHOD 01/16/2025 2:[address] [facility] Glucose 79 70 - 100 mg/dL LAB CHEMISTRY METHOD 01/16/2025 2:[address] [facility] BUN 13 5 - 25 mg/dL LAB CHEMISTRY METHOD 01/16/2025 2:[address] [facility] Creatinine 0.60 0.50 - 1.10 mg/dL LAB CHEMISTRY METHOD 01/16/2025 2:[address] [facility] eGFR 109 >=60 mL/min/1. 73m2 LAB CHEMISTRY METHOD 01/16/2025 2:[address] [facility] Comment:Calculation based on the Chronic Kidney Disease Epidemiology Collaboration (CKD-EPI) equation refit without adjustment for race. BUN/Creatinine Ratio 21.7 LAB CHEMISTRY METHOD 01/16/2025 2:[address] [facility] Calcium 8.9 8.5 - 10.5 mg/dL LAB CHEMISTRY METHOD 01/16/2025 2:[address] [facility] AST (SGOT) 16 10 - 42 unit/L LAB CHEMISTRY METHOD 01/16/2025 2:[address] [facility] ALT (SGPT) 26 10 - 60 unit/L LAB CHEMISTRY METHOD 01/16/2025 2:[address] [facility] Alkaline Phosphatase 94 42 - 121 unit/L LAB CHEMISTRY METHOD 01/16/2025 2:[address] [facility] Total Protein 7.3 6.0 - 8.0 g/dL LAB CHEMISTRY METHOD 01/16/2025 2:[address] [facility] Albumin 3.9 3.2 - 5.0 g/dL LAB CHEMISTRY METHOD 01/16/2025 2:[address] [facility] Total Bilirubin 0.4 0.0 - 1.4 mg/dL LAB CHEMISTRY METHOD 01/16/2025 2:46 PM EDT [facility] Blood Venous blood specimen / Unknown Venipuncture / Unknown 01/16/2025 12:02 PM EDT 01/16/2025 1:47 PM EDT Antoinette REID LAB BLOOD ORDERABLES Fin al Result [facility] [address] [place] [address], [place] [phone] * Depression Screening (09/28/2023) Depression Screening abstracted Historical Provider HEALTH MAINTENANCE Final Result * Pap smear (02/23/2022) 02/23/2022 Narrative HISTORICAL TESTING LAB RESULTING AGENCY - 03/07/2022 3:05 PM EDT [id number] THINPREP PAP, IMAGED: NEGATIVE FOR SQUAMOUS INTRAEPITHELIAL LESION AND MALIGNANCY . ROB PABLO(ASCP) (CASE ELECTRONICALLY SIGNED 03 07 2022) RESULT OF APTIMA HIGH RISK HPV ASSAY: HIGH RISK HPV: NEGATIVE (SEROTYPES 16,18,31,33,35,39,45,51,52,56,58,59,66,68) COMPLETED ON 2022-02-28 ADEQUACY: SATISFACTORY ENDOCERVICAL/TRANSFORMATION ZONE COMPONENT PRESENT. SOURCE: THINPREP PAP HPV ANY DX: REFLEX 16 AND 18, CERVICAL, IMAGED CLINICAL INFORMATION: HPV ANY DIAGNOSIS. Z12.4 García Romero DO LAB CYTOLOGY ORDERABLES Final Result HISTORICAL TESTING LAB RESULTING AGENCY * HIV Screening (05/25/2011) HIV Screening abstracted Historical Provider HEALTH MAINTENANCE Final Result * Hepatitis C Screening (05/25/2011) Hepatitis C Screening abstracted us Historical Provider HEALTH MAINTENANCE Final Result from Last 3 Months or Most Recently Relevant to Health Maintenance Insurance [facility] Care Teams Churn Driller Relationship Specialty Start Date End Date Antoinette Bull PA [address] [place] [address] PCP - General 10/31/23
== END 2025-04-07 14:32 | disposition home or self-care (01) ==
LOC: HO.HSMS 13:05
PROVIDERS: Visit Provider Nurse Practitioner Family
DX: G43.719 Chronic migraine without aura, intractable, without status migrainosus (principal); G40.909 Epilepsy, unspecified, not intractable, without status epilepticus; G25.81 Restless legs syndrome; R53.83 Other fatigue; R06.83 Snoring
CPT/HCPCS: 99214; G2211

== ENCOUNTER → 2025-04-07 13:04 | Outpatient (BNVA) | payer OTHER, SELFPAY | PROVIDERS: Visit Provider Nurse Practitioner Family | DX: G43.719 Chronic migraine without aura, intractable, without status migrainosus (principal); G25.81 Restless legs syndrome; R53.83 Other fatigue; R06.83 Snoring | CPT/HCPCS: 99212 ==

== ENCOUNTER → 2025-04-10 19:30 | Outpatient (REF) | payer OTHER, SELFPAY ==
--- OUTSIDE RECORDS SUMMARY | 2025-04-10 22:02 | XMS_ITS | Clinical Summary ---
Author Organization [address] [facility] Address [address] [place] [address] Phone Care Team Providers Care Anchor Tacker Name Role Phone Antoinette Bull Primary Care [...] B12 deficiency 10/01/2017 Anemia 01/19/2017 Seizure disorder ([facility] V24, [facility] V28) 03/25 Insomnia 12/28/2014 Overview (07/02/2024): 09/2021 [...] 10:45 AM EDT Office Visit Internal Medicine [address] [phone] Antoinette Bull PA Fibromyalgia (Primary Dx); Chronic bilateral low back pain, unspecified whether sciatica present 01/27/2025 Telephone Internal Medicine [address] [phone] Erlinda Menon MA 01/14/2025 Telephone Internal Medicine [address] [phone] Antoinette Bull PA Anemia; Requesting Bloodwork 01/09/2025 Telephone Internal [address] [phone] Radha Steward MA Request For Order(s) ([facility] - Health Status Report /) 01/09/2025 Telephone Internal Medicine [address] [phone] Radha Steward MA from Last 3 Months [...] GASTRIC BYPASS FOR OBESIT BREAST REDUCTION PROCEDURE: FL BREAST REDUCTION TUBAL LIGATION PROCEDURE: HISTORICAL TUBAL LIGATION ENDOMETRIAL ABLATION 12/27/2012 PROCEDURE: FL ENDOMETRIAL ABLTJ THERMAL W/O HYSTEROSCOPIC GUID; COMMENT: [...] disorde r, recurrent, severe with psychotic features ([facility]) Fibromyalgia DX:Fibromyalgia Asthma Anxiety and depression Family [...] AM EDT Office Visit Internal Medicine - [place] [address] [facility] [address] [place] [phone] Antoinette Bull, PA [address] [place] [address] Health Maintenance Due Date Last Done Comments [...] 4:05 PM EDT Performed at: 01 - [facility] [address] [place] [id number] Construction Cost Estimator: Aruna Jackson [facility], Phone: [phone] Specimen Comment: ToxAssure, [employer] FLEX or MAT drug testing: Specimen Comment: -Technical component - Data analysis performed at Specimen Comment: [facility], [address] [place] [address], [place], [address]. Specimen Comment: [phone]. Construction Cost Estimator Julissa Leonard MD Antoinette REID LAB URINE ORDERABLES Fin al Result [facility] * Interferon gamma interpretation (01/16/2025 12:02 PM EDT) [facility] Quantiferon Plus Interpretation Negative Negative LAB CHEMISTRY METHOD 01/17/2025 1:03 PM EDT [facility] Blood Venous blood specimen / Unknown Venipuncture / Unknown 01/16/2025 12:02 PM EDT 01/16/2025 1:46 PM EDT Antoinette REID LAB BLOOD ORDERABLES Fin al Result Performing Organization Address City/[facility] Co de Phone Number [facility] [address] [place] [address], [place] [phone] * Interferon gamma antigen 2 (01/16/2025 12:02 PM EDT) Blood Venous blood specimen / Unknown Venipuncture / Unknown 01/16/2025 12:02 PM EDT 01/16/2025 1:46 PM EDT Antoinette REID LAB BLOOD ORDERABLES Fin al Result Performing Organization Address [facility]/ZIP Co de Phone Number [facility] [address] [place] [address], [place] [phone] * Inteferon gamma antigen 1 (01/16/2025 12:02 PM EDT) Blood Venous blood specimen / Unknown Venipuncture / Unknown 01/16/2025 12:02 PM EDT 01/16/2025 1:46 PM EDT us Antoinetet REID LAB BLOOD ORDERABLES Fin al Result Performing Organization Address City/[facility]/ZIP Co de Phone Number [facility] [address] [place] [address], [place] [phone] * Interferon gamma mitogen (01/16/2025 12:02 PM EDT) Blood Venous blood specimen / Unknown Venipuncture / Unknown 01/16/2025 12:02 PM EDT 01/16/2025 1:46 PM EDT Antoinette REID LAB BLOOD ORDERABLES Fin al Result Performing Organization Address City/[facility]/ZIP Co de Phone Number [facility] [address] [place] [address], [place] [phone] * Interferon gamma NIL (01/16/2025 12:02 PM EDT) Blood Venous blood specimen / Unknown Venipuncture / Unknown 01/16/2025 12:02 PM EDT 01/16/2025 1:46 PM EDT Antoinette REID LAB BLOOD ORDERABLES Fin al Result Performing Organization Address [facility] de Phone Number [facility] [address] [place] [address], [place] [phone] * Lipid panel with reflex to direct LDL (01/16/2025 12:02 PM EDT) Cholesterol 156 0 - 200 mg/dL LAB CHEMISTRY METHOD 01/16/2025 2:46 PM EDT [facility] Triglycerides 79 0 - 150 mg/dL LAB CHEMISTRY METHOD 01/16/2025 2:46 PM EDT [facility] HDL 71 >=40 mg/dL LAB CHEMISTRY METHOD 01/16/2025 2:46 PM EDT [facility] LDL Calculated 69 0 - 100 mg/dL LAB CHEMISTRY METHOD 01/16/2025 2:46 PM EDT [facility] VLDL Cholesterol Mario 15.8 mg/dL LAB CHEMISTRY METHOD 01/16/2025 2:46 PM EDT [facility] Non HDL Chol. (LDL+VLDL) 85 <145 mg/dL LAB CHEMISTRY METHOD 01/16/2025 2:46 PM EDT [facility] Chol/HDL Ratio 2.2 0.0 - 4.4 LAB CHEMISTRY METHOD 01/16/2025 2:46 PM EDT [facility] Blood Venous blood specimen / Unknown Venipuncture / Unknown 01/16/2025 12:02 PM EDT 01/16/2025 1:47 PM EDT Antoinette REID LAB BLOOD ORDERABLES Fin al Result [facility] [address] [place] [address], * (ABNORMAL) CBC auto differential (01/16/2025 12:02 PM EDT) WBC 6.0 4.8 - 10.8 K/mcL LAB HEMETOLOGY METHOD 01/16/2025 2:19 PM [facility] RBC 3.70(L) 3.80 - 4.80 M/mcL LAB HEMETOLOGY METHOD 01/16/2025 2:19 PM [facility] Hemoglobin 11.2(L) 11.5 - 16.0 g/dL LAB HEMETOLOGY METHOD 01/16/2025 2:19 PM [facility] Hematocrit 33.4(L) 35.0 - 47.0 % LAB HEMETOLOGY METHOD 01/16/2025 2:19 PM [facility] MCV 91.3 79.0 - 98.0 FL LAB HEMETOLOGY METHOD 01/16/2025 2:19 PM [facility] MCH 30.6 27.0 - 32.0 pcg LAB HEMETOLOGY METHOD 01/16/2025 2:19 PM [facility] MCHC 33.5 32.0 - 37.0 g/dL LAB HEMETOLOGY METHOD 01/16/2025 [facility] RDW 12.1 11.0 - 15.0 % LAB HEMETOLOGY METHOD 01/16/2025 2:19 PM EDT [facility] Platelets 305 130 - 400 K/mcL LAB HEMETOLOGY METHOD 01/16/2025 2:19 PM [facility] MPV 10.2 7.0 - 11.0 FL LAB HEMETOLOGY METHOD 01/16/2025 2:19 PM EDT [facility] NRBC 0.0 <1.0 % LAB HEMETOLOGY METHOD [facility]/16[facility]2025 2:[facility] NRBC Absolute 0.00 <0.10 K/mcL LAB HEMETOLOGY METHOD 01/16/2025 2:[facility] Neutrophils Relative 42.9 % LAB HEMETOLOGY METHOD 01/16/2025 2:[facility] Lymphocytes Relative 47.7 % LAB HEMETOLOGY METHOD 01/16/2025 2:19 PM [facility] Monocytes Relative 7.0 % LAB HEMETOLOGY METHOD 01/16/2025 2:19 PM [facility] Eosinophils Relative 1.0 % LAB HEMETOLOGY METHOD 01/16/2025 2:19 PM [facility] Basophils Relative 1.2 % LAB HEMETOLOGY METHOD 01/16/2025 2:19 PM T [facility] Immature Granulocytes Relative 0.2 % LAB HEMETOLOGY METHOD 01/16/2025 2:[facility] Neutrophils Absolute 2.57 1.50 - 7.00 K/mcL LAB HEMETOLOGY METHOD 01/16/2025 2:[facility] Lymphocytes Absolute 2.85 1.00 - 5.00 K/mcL LAB HEMETOLOGY METHOD 01/16/2025 2:19 PM EDT [facility] Monocytes Absolute 0.42 0.20 - 1.00 K/mcL LAB HEMETOLOGY METHOD 01/16/2025 2:19 PM EDT [facility] Eosinophils Absolute 0.06 0.00 - 0.50 K/mcL LAB HEMETOLOGY METHOD 01/16/2025 2:19 PM EDT [facility] Basophils Absolute 0.07 0.00 - 0.20 K/mcL LAB HEMETOLOGY METHOD 01/16/2025 2:19 PM EDT [facility] Immature Granulocytes Absolute 0.01 0.00 - 0.03 K/mcL LAB HEMETOLOGY METHOD 01/16/2025 2:19 PM EDT [facility] Blood Venous blood specimen / Unknown Venipuncture / Unknown 01/16/2025 12:02 PM EDT 01/16/2025 1:48 PM EDT Antoinette REID LAB BLOOD ORDERABLES Fin al Result [facility] [address] [place] [address], [place] [phone] * (ABNORMAL) Vitamin D 25 hydroxy (01/16/2025 12:02 PM EDT) Vit D, 25-Hydroxy 24.2(L) 30.0 - 80.0 ng/mL LAB CHEMISTRY METHOD 01/16/2025 4:13 PM EDT [facility] Blood Venous blood specimen / Unknown Venipuncture / Unknown 01/16/2025 12:02 PM EDT 01/16/2025 1:47 PM EDT Antoinette REID LAB BLOOD ORDERABLES Fin al Result [facility] [address] [place] [address], [place] [phone] * Thyroid stimulating hormone (01/16/2025 12:02 PM EDT) TSH 0.70 0.40 - 4.00 mcIU/mL LAB CHEMISTRY METHOD 01/16/2025 4:13 PM EDT [facility] Blood Venous blood specimen / Unknown Venipuncture / Unknown 01/16/2025 12:02 PM EDT 01/16/2025 1:47 PM EDT Antoinette REID LAB BLOOD ORDERABLES Fin al Result [facility] [address] [place] [address], [place] [phone] * Magnesium (01/16/2025 12:02 PM EDT) Magnesium 2.4 1.9 - 2.6 mg/dL LAB CHEMISTRY METHOD 01/16/2025 2:46 PM EDT [facility] Blood Venous blood specimen / Unknown Venipuncture / Unknown 01/16/2025 12:02 PM EDT 01/16/2025 1:47 PM EDT Antoinette REID LAB BLOOD ORDERABLES Fin al Result [facility] [address] [place] [address], [place] [phone] * Iron (01/16/2025 12:02 PM EDT) Iron 91 40 - 150 mcg/dL LAB CHEMISTRY METHOD 01/16/2025 2:46 PM EDT [facility] Blood Venous blood specimen / Unknown Venipuncture / Unknown 01/16/2025 12:02 PM EDT 01/16/2025 1:47 PM EDT Antoinette REID LAB BLOOD ORDERABLES Fin al Result [facility] [address] [place] [address], [place] [phone] * Hemoglobin A1c (01/16/2025 12:02 PM EDT) [facility] Hemoglobin A1C 5.0 <6.5 % LAB CHEMISTRY METHOD 01/16/2025 9:54 PM EDT [facility] Mean Bld Glu Estim. 97 mg/dL LAB CHEMISTRY METHOD 01/16/2025 9:54 PM EDT [facility] Blood Venous blood specimen / Unknown Venipuncture / Unknown 01/16/2025 12:02 PM EDT 01/16/2025 1:48 PM EDT Antoinette REID LAB BLOOD ORDERABLES Fin al Result Performing Organization Address City/[facility]/ZIP Co de Phone Number [facility] [address] [place] [address], [place] [phone] * Folate (01/16/2025 12:02 PM EDT) [facility] Folate 16.3 2.8 - 17.0 ng/ml LAB CHEMISTRY METHOD 01/16/2025 3:09 PM EDT [facility] Blood Venous blood specimen / Unknown Venipuncture / Unknown 01/16/2025 12:02 PM EDT 01/16/2025 1:47 PM EDT us Antoinette REID LAB BLOOD ORDERABLES Fin al Result [facility] [address] [place] [address], [place] [phone] * Ferritin (01/16/2025 12:02 PM EDT) [facility] Ferritin 62 8 - 252 ng/mL LAB CHEMISTRY METHOD 01/16/2025 3:09 PM EDT [facility] Blood Venous blood specimen / Unknown Venipuncture / Unknown 01/16/2025 12:02 PM EDT 01/16/2025 1:47 PM EDT us Antoinette REID LAB BLOOD ORDERABLES Fin al Result Performing Organization Address [facility] Co de Phone Number [facility] [address] [place] [address], [place] [phone] * (ABNORMAL) Vitamin B12 (01/16/2025 12:02 PM EDT) [facility] Vitamin B-12 >2,000(H) 250 - 900 pcg/mL LAB CHEMISTRY METHOD 01/16/2025 3:09 PM EDT [facility] Blood Venous blood specimen / Unknown Venipuncture / Unknown 01/16/2025 12:02 PM EDT 01/16/2025 1:47 PM EDT us Antoinette REID LAB BLOOD ORDERABLES Fin al Result Performing Organization Address [facility] de Phone Number [facility] [address] [place] [address], [place] [phone] * Comprehensive metabolic panel (01/16/2025 12:02 PM EDT) [facility] Sodium 137 133 - 145 mmol/L LAB CHEMISTRY METHOD 01/16/2025 2:46 PM EDT [facility] Potassium 4.2 3.5 - 5.5 mmol/L LAB CHEMISTRY METHOD 01/16/2025 2:46 PM EDT [facility] Chloride 102 96 - 110 mmol/L LAB CHEMISTRY METHOD 01/16/2025 2:46 PM EDT [facility] CO2 28 21 - 32 mmol/L LAB CHEMISTRY METHOD 01/16/2025 2:46 PM [facility] Anion Gap 7 3 - 11 LAB CHEMISTRY METHOD 01/16/2025 2:46 PM [facility] Glucose 79 70 - 100 mg/dL LAB CHEMISTRY METHOD 01/16/2025 2:46 PM [facility] BUN 13 5 - 25 mg/dL LAB CHEMISTRY METHOD 01/16/2025 2:46 PM [facility] Creatinine 0.60 0.50 - 1.10 mg/dL LAB CHEMISTRY METHOD 01/16/2025 2:46 PM [facility] eGFR 109 >=60 mL/min/1. 73m2 LAB CHEMISTRY METHOD 01/16/2025 2:46 PM [facility] Comment:Calculation based on the Chronic Kidney Disease Epidemiology Collaboration (CKD-EPI) equation refit without adjustment for race. BUN/Creatinine Ratio 21.7 LAB CHEMISTRY METHOD 01/16/2025 2:46 PM [facility] Calcium 8.9 8.5 - 10.5 mg/dL LAB CHEMISTRY METHOD 01/16/2025 2:46 PM [facility] AST (SGOT) 16 10 - 42 unit/L LAB CHEMISTRY METHOD 01/16/2025 2:46 PM [facility] ALT (SGPT) 26 10 - 60 unit/L LAB CHEMISTRY METHOD 01/16/2025 2:46 PM [facility] Alkaline Phosphatase 94 42 - 121 unit/L LAB CHEMISTRY METHOD 01/16/2025 2:46 PM [facility] Total Protein 7.3 6.0 - 8.0 g/dL LAB CHEMISTRY METHOD 01/16/2025 2:46 PM [facility] Albumin 3.9 3.2 - 5.0 g/dL LAB CHEMISTRY METHOD 01/16/2025 2:46 PM [facility] Total Bilirubin 0.4 0.0 - 1.4 mg/dL LAB CHEMISTRY METHOD 01/16/2025 2:46 PM EDT [facility] Blood Venous blood specimen / Unknown Venipuncture / Unknown 01/16/2025 12:02 PM EDT 01/16/2025 1:47 PM EDT Antoinette REID LAB BLOOD ORDERABLES Fin al Result [facility] [address] [place] [address], [place] [phone] * Depression Screening (09/28/2023) Depression Screening abstracted Historical Provider HEALTH MAINTENANCE Final Result * Pap smear (02/23/2022) 02/23/2022 Narrative HISTORICAL TESTING LAB RESULTING AGENCY - 03/07/2022 3:05 PM EDT [id number] THINPREP PAP, IMAGED: NEGATIVE FOR SQUAMOUS INTRAEPITHELIAL [...] Most Recently Relevant to Health Maintenance Insurance [facility] Care Teams Anchor Tacker Relationship Specialty Start Date End Date Antoinette Bull PA [address] [place] [address] PCP - General 10/31/23
--- OUTSIDE RECORDS SUMMARY | 2025-04-10 22:02 | XMS_ITS | Clinical Summary ---
Author Organization [employer] Address [address] [facility] [address] [place] [address] Care Team Providers Care Nursing Manager Name Role Phone Unavailable Primary Care Provider [...] patient's age to complete this topic [place] [address] ACO
== END ==
LOC: HO.SL 19:30
PROVIDERS: Visit Provider Nurse Practitioner Family
DX: R06.83 Snoring (principal); R53.83 Other fatigue; G25.81 Restless legs syndrome; G40.909 Epilepsy, unspecified, not intractable, without status epilepticus; R63.5 Abnormal weight gain
CPT/HCPCS: 95810

== ENCOUNTER → 2025-04-10 21:29 | Outpatient (BNV) | payer OTHER, SELFPAY | PROVIDERS: Visit Provider Psychiatry & Neurology Neurology | DX: R06.83 Snoring (principal) | CPT/HCPCS: 95810 ==

== ENCOUNTER 2025-04-21 10:26 | Outpatient (AMB) | payer OTHER, SELFPAY ==
--- NOTE | 2025-04-21 10:28 | MHC.OFFVIS ---
Vital Signs 04/21/25 10:29 Height 5 ft 7 in Weight 240 lb BMI 37.6 BP 144/90 H Blood Pressure Location Rt brachial Position Semi Andrade's Pulse 80 Pulse Source Pulse Oximeter Pulse Oximetry (%) 97 Oxygen Delivery Method Room Air Comment Patient has not taken their blood pressure medication today. Intake Visit Reasons: Botox General Office Assistant Required: Yes General Office Assistant Language: Aircraft Instrument Tester Name: Pt daughter will keyliner. Accompanied by: Daughter Allergies zolmitriptan (From [facility]) Allergy (Intermediate, Verified 04/07/25 13:18) Migraine HPI Comments Details: ? 50y/o female comes for treatment of migraines with botox.She did well with Botox and has 1 migraine day a week. she used to have 20 migraine days a month and uses tylenol or excedrin migraine she did not tolerate sumatriptan, poor response to ubrelvy ??? Most frequent reported adverse reactions following injection of botox for chronic migraine include neck pain (9%), headache(5%), eyelid ptosis(4%), migraine(4%), muscular weakness(4%), musculuskeletal stiffness(4%), bronchitis(3%), injection site pain (3%), musculoskeletal pain(3%), myalgia(3%), facial paresis(2%), HTN(2%) and muscle spasms(2%) were discussed in detail. ??? Botulinum toxin typeA 200units Lot no [id number] expiration June 2027 was diluted with 4 cc of normal saline . ??? Muscles injected- ??? Frontalis 4 sites ??? Procerus 1 site ??? Furniture Polisher- 2 sites ??? Temporalis- 8 sites ??? Occipitalis- 6 sites ??? Cervical paraspinals- 4 sites ??? Trapezius- 6 sites- 10 units each ??? 5 units each in 31 site ??? Total use- 185units ??? Discarded-15units [facility] Medical History Depression with anxiety Asthma Chronic pain syndrome Sacroiliitis Seizure disorder Migraine Anemia Surgical History Tubal ligation status History of bilateral breast reduction surgery Gastric bypass status for obesity Family History Mother Heart problem Social History Household Members: Spouse Alcohol intake: current Alcohol intake frequency: holidays/special occasions only Comment: pt reports her baseline back pain is 07/03 Patient Tobacco Use Status: Never used Tobacco Current occupational status: disabled Physical Exam Vital Signs: Last Vital Signs Pulse 80 04/21/25 10:29 BP 144/90 H 04/21/25 10:29 Pulse Ox 97 04/21/25 10:29 Oxygen Delivery Method Room Air 04/21/25 10:29 BMI result Body Mass Index 37.6 Const General: cooperative and no acute distress Orientation/consciousness: patient oriented x3 Resp Effort & Inspection: normal respiratory effort and able to speak in complete sentences Neuro General: patient oriented x3 Cranial nerves: Yes CN's II-XII intact bilaterally Cognition (Neuro): normal cognition Psych Appearance: grossly normal Mental Status: mental status grossly normal Speech and movement: Normal speech and movement present Affect: normal affect Attitude: cooperative Office Procedures Botulinum toxin Injection 19319 - Migraine Procedure code (CPT) selection complete Office Meds onabotulinumtoxinA 200 unit solution for injection Performing Provider: Gill Bonds MD Performing Location: [facility] Administered by: Gill Bonds MD on 04/21/25 11:21 Dose Route Admin Location Dispensed Lot Number Expiration Date [facility] [employer] Supervisor 185 unit subcut 200 units [id number] [employer]/BOTOX Total Dispensed Waste 200 units 7.5 % Comments: see HPI Assessment & Plan Assessment & Plan (1) Chronic migraine without aura: Code(s): G43.709 - Chronic migraine without aura, not intractable, without status migrainosus Category: Medical Qualifiers: Status migrainosus presence: without status migrainosus Intractability: intractable Qualified Code(s): G43.719 - Chronic migraine without aura, intractable, without status migrainosus (2) Seizure disorder: Code(s): G40.909 - Epilepsy, unspecified, not intractable, without status epilepticus Category: Medical Plan Patient tolerated the procedure well SHe will call with any side effects. Increase gabapentin 100 mg 3 tabs qhs Orders: Orders AMB Botulinum toxin Injection Today G43.719 - Chronic migraine without aura, intractable, without status migrainosus Coding Level of Care Code Est Pt Level 2 (38787) Diagnoses Intractable chronic migraine without aura and without status migrainosus G43.719 Status migrainosus presence: without status migrainosus Intractability: intractable Seizure disorder G40.909 CPT Codes Botox Injection - Botox 3: 67128 - Migraine ([id number])
[2025-04-21 10:29] VITALS: BP 144/90; PULSE 80; O2SAT 97; BMI 37.6
--- OUTSIDE RECORDS SUMMARY | 2025-04-21 11:26 | XMS_ITS | Clinical Summary ---
Author Organization [employer] Address [address] [facility] [address] [place] [address] Care Team Providers Care Resource Center Teacher Name Role Phone Unavailable Primary Care Provider [...] patient's age to complete this topic [place] [address] ACO
--- OUTSIDE RECORDS SUMMARY | 2025-04-21 11:26 | XMS_ITS | Clinical Summary ---
Author Organization 175 [facility] Address [address] [place] [address] Phone Care Team Providers Care [employer] Manager Name Role Phone Antoinette Bull Primary Care Provider + Allergies Active Allergy Reactions Criticality Noted Date Comments Zolmitriptan 04/29/2014 Medications omeprazole (PriLOSEC) [address] capsule Take 1 capsule (40 mg total) by mouth 1 (one) time each day if needed (ACID REFLUX). 02/24/20 24 Active albuterol HFA (PROAIR HFA ; PROVENTIL HFA ; VENTOLIN HFA) 90 mcg/actuation inhaler Inhale 2 Puffs into the lungs every 4 hours as needed for Cough or Wheezing. 09/28/19 24 Active sertraline (ZOLOFT) 100 mg tablet Take 2 tablets (200 mg total) by mouth 1 (one) time each day if needed (DEPRESSION). 01/29/20 23 Active cholecalciferol (VITAMIN D-3) 50 mcg (2,000 unit) tablet Take 1 tablet (2,000 Units total) by mouth 1 (one) time per week. Sunday11/12/19 24 Active OXcarbazepine (TRILEPTAL) 300 mg tablet Take 2 tablets (600 mg total) by mouth 2 (two) times a day. 10/02/19 24 Active pyridoxine (B-6) 50 mg tablet Take 1 tablet (50 mg total) by mouth 2 (two) times a week. 12/23/19 22 Active B complex tablet Take 1 tablet by mouth daily. 04/25/20 Active ferrous sulfate 325 mg (65 mg elemental iron) tablet Take 1 tablet (325 mg total) by mouth 1 (one) time per week. Sunday06/02/20 Active multivitamin with minerals (Spectravite Advanced Formula) 18-400 mg-mcg tablet tablet Take 1 tablet by mouth 1 (one) time each day. 07/28/20 Active magnesium oxide (MAG-OX) 400 mg (241.3 elemental magnesium) tabletIndicatio ns:Fibromyalgia TAKE 1 TABLET BY MOUTH EVERYDAY AT BEDTIME 90 tablet 1 08/13/20 24 Active Additional Information Patient not taking.Reported on 04/13/2025 oxyCODONE (ROXICODONE) 5 mg immediate release tabletIndicatio ns:Fibromyalgia ,Chronic bilateral low back pain without sciatica Take 1 tablet (5 mg total) by mouth 2 (two) times a day if needed for severe pain. Max Daily Amount: 10 mg 56 tablet 04/01/20 Active Additional Information Patient taking differently:5 mg oral3 times daily PRN, severe pain, Reported on 04/13/2025 gabapentin (NEURONTIN) 100 mg capsule Take 3 capsules (300 mg total) by mouth at bedtime as needed (SLEEP). TAKE 1 CAPSULE 2 HOURS BEFORE BEDTIME AND 2 CAPSULES AT BEDTIME 04/09/20 Active divalproex (DEPAKOTE) [address] tablet Take 1 tablet (250 mg total) by mouth 3 (three) times a day if needed (MIGRAINES). 04/07/20 Active propranoloL (INDERAL) 10 mg tablet Take 1 tablet (10 mg total) by mouth 2 (two) times a day if needed (HYPERTENSION). 07/13/20 23 Active rOPINIRole (REQUIP) 0.25 mg tablet Take 1-2 tablets (0.25-0.5 mg total) by mouth at bedtime as needed (RESTLESS LEGS). 04/07/20 25 Active topiramate (TOPAMAX) 50 mg tablet Take 1 tablet (50 mg total) by mouth 2 (two) times a day if needed (MIGRAINES). 04/07/20 25 Active doxepin (SINEquan) 150 mg capsule Take 1 capsule (150 mg total) by mouth at bedtime. at bedtime 04/08/20 25 Active magnesium oxide 400 mg magnesium capsule Take 400 mg by mouth at bedtime. 01/16/20 25 Active clonazePAM (KlonoPIN) 0.5 mg tablet Take 1 tablet (0.5 mg total) by mouth 3 (three) times a day if needed for anxiety. Max Daily Amount: 1.5 mg 04/10/20 25 Active metoclopramide (REGLAN) 5 mg tablet Take 1-2 tablets (5-10 mg total) by mouth every 4 (four) hours if needed for nausea or vomiting. 04/07/20 25 Active cephalexin (KEFLEX) 500 mg capsule Take 1 capsule (500 mg total) by mouth 4 (four) times a day for 10 days. 40 each 04/13/20 25 025 Active Lactobacillus acidophilus 100 mg (1 billion cell) capsule Take 1 capsule by mouth 2 (two) times a day. 60 each 04/13/20 25 025 Active clonazePAM (KlonoPIN) 2 mg tablet 0.5 Tablets at bedtime. 10/24/19 22 025 Discontinu ed(Alterna te therapy) doxepin (SINEquan) 100 mg capsule Take 1 capsule (100 mg total) by mouth at bedtime as needed. 04/10/20 24 025 Discontinu ed(Alterna te therapy) oxyCODONE (ROXICODONE) 5 mg immediate release tabletIndicatio ns:Fibromyalgia ,Chronic bilateral low back pain without sciatica Take 1 tablet (5 mg total) by mouth 2 (two) times a day if needed for severe pain. Max Daily Amount: 10 mg 56 tablet 02/26/20 25 025 Discontinu ed(Reorder ) polyethylene glycol (MIRALAX) 17 gram packet Take 17 g by mouth 1 (one) time each day for 3 days. 51 g 04/13/20 25 025 Active Problems Problem Noted Date Diagnosed Date [...] B12 deficiency 10/01/2017 Anemia 01/19/2017 Seizure disorder ([facility] V24, [facility] V28) 03/25 Insomnia 12/28/2014 Overview (07/02/2024): [...] Encounters Date Type Department Care Team Description 04/13/2025 10:21 AM EDT - 04/13/2025 6:41 PM EDT Emergency [facility] Emergency [address] [place] [address] Feliciano Serra MD Seizure ([facility] V24, [facility] V28) (Primary Dx); Status epilepticus ([facility] V24, [facility] V28); Hypomagnesemia; Constipation, unspecified constipation type; Cystitis Discharge Disposition: Home or Self Care 02/03/2025 10:45 AM EDT Office Visit Internal Medicine [facility] [address] [address] Antoinette Bull PA Fibromyalgia (Primary Dx); Chronic bilateral low back pain, unspecified whether sciatica present 01/27/2025 Telephone Internal Medicine [facility] 175 [facility] [address] [place] [address] Erlinda Menon MA from Last 3 Months Immunizations Name [...] GASTRIC BYPASS FOR OBESIT BREAST REDUCTION PROCEDURE: [place] BREAST REDUCTION TUBAL LIGATION PROCEDURE: HISTORICAL TUBAL LIGATION ENDOMETRIAL ABLATION 12/27/2012 PROCEDURE: [place] ENDOMETRIAL ABLTJ THERMAL W/O HYSTEROSCOPIC GUID; COMMENT: Manny OTHER SURGICAL HISTORY 02/08/2024 PROCEDURE: LAPAROSCOPY, SURGICAL/HYSTERECTOMY; [...] disorder, r ecurrent, severe with psychotic features ([facility] V24, [facility] V28) 07/18/2019 DX:Major depressive disorde r, recurrent, severe with psychotic features ([facility]) Fibromyalgia DX:Fibromyalgia Asthma Anxiety and depression Seizure ([facility] V24, [facility] V28) Family History Medical History Relation Name Comments [...] Sign Reading Time Taken Comments Blood Pressure 134/83 04/13/2025 5:01 PM EDT Pulse 74 04/13/2025 5:01 PM EDT Temperature 36.9 C (98.4 F) 04/13/2025 11:41 AM EDT Respiratory Rate 16 04/13/2025 5:01 PM EDT Oxygen Saturation 100% 04/13/2025 5:01 PM EDT Inhaled Oxygen Concentration - - Weight 92.1 kg (203 lb) 04/13/2025 10:39 AM EDT Height 170.2 cm (5' 7 ) 04/13/2025 10:39 AM EDT Body Mass Index 31.79 04/13/2025 10:39 AM EDT Plan of Treatment Upcoming Encounters Date Type Department Care Team (Late st Contact Info) Description 05/06/2025 11:15 AM EDT Office Visit Internal Medicine - [place] 175 [facility] [address] [place] [address] Antoinette Bull, [place] [address] [facility] [address] [place] [address] Health Maintenance Due Date Last Done Comments Breast Cancer Screening 1973 Hepatitis B Vaccines (1 of 3 - 19+ 3-dose series) 1992 Pneumococcal Vaccine: 50+ Years (1 of 2 - PCV) 1992 Colorectal Cancer Screening: Colonoscopy 09/02/2022 Social Influencers of Health Screening 09/02/2022 Zoster Vaccines (1 of 2) 2023 COVID-19 Vaccine (4 - season) 2024 02/14/2022, 03/03/2021, 02/03/2021 Depression Screening 09/24/2024 09/28/2023 Cervical Cancer Screening: Pap Smear 02/23/2025 [...] Procedure Name Priority Date/Time Associated Diagnosis Comments VELEZ URINE CULTURE TUBE STAT 04/13/2025 4:48 PM EDT URINALYSIS WITH REFLEX MICROSCOPIC AND CULTURE STAT 04/13/2025 4:48 PM EDT URINALYSIS WITH REFLEX MICROSCOPIC AND CULTURE STAT 04/13/2025 4:48 PM EDT CULTURE URINE STAT 04/13/2025 4:[address] ABDOMEN PELVIS W CONTRAST STAT 04/13/2025 3:29 PM EDT TROPONIN I HIGH SENSITIVITY Timed 04/13/2025 12:[address] CERVICAL SPINE WO CONTRAST STAT 04/13/2025 12:[address] HEAD WO CONTRAST STAT 04/13/2025 1 2:02 PM EDT HEPATIC FUNCTION PANEL STAT Add-on 04/13/2025 10:53 AM EDT TROPONIN I HIGH SENSITIVITY Timed 04/13/2025 10:53 AM EDT CBC WITH AUTO DIFFERENTIAL STAT 04/13/2025 10:53 AM EDT PROLACTIN STAT 04/13/2025 10:53 AM EDT MAGNESIUM STAT 04/13/2025 10:53 AM EDT BASIC METABOLIC PANEL STAT 04/13/2025 10:53 AM EDT CBC AND DIFFERENTIAL STAT 04/13/2025 10:53 AM EDT ECG 12-LEAD STAT 04/13/2025 10:48 AM EDT POCT GLUCOSE BLOOD Routine 04/13/2025 10 :46 AM EDT LIPID PANEL WITH REFLEX TO DIRECT LDL Routine 01/16/2025 12:02 PM EDT Health care maintenance DEPRESSION SCREENING Routine 09/28/2023 PAP SMEAR Routine 02/23/2022 HEPATITIS C SCREENING Routine 05/25/2011 HIV SCREENING Routine 05/25/2011 from Last 3 Months or Most Recently Relevant to Health Maintenance Results * (ABNORMAL) Urinalysis with reflex microscopic and culture (04/13/2025 4:48 PM EDT) Specific Martin Urine 1.036(H) 1.003 - 1.030 LAB URINALYSIS - AUTOMATED METHOD 04/13/2025 6:01 PM [facility] pH, Urine 7.5 5.0 - 8.0 pH LAB URINALYSIS - AUTOMATED METHOD 04/13/2025 6:01 PM [facility] Leukocytes, Urine Moderate(A) Negative LAB URINALYSIS - AUTOMATED METHOD 04/13/2025 6:01 PM [facility] Nitrite, Urine Negative Negative LAB URINALYSIS - AUTOMATED METHOD 04/13/2025 6:01 PM [facility] Protein, Urine Negative <=Trace mg/dL LAB URINALYSIS - AUTOMATED METHOD 04/13/2025 6:01 PM [facility] Glucose, Urine Negative Negative mg/dL LAB URINALYSIS - AUTOMATED METHOD 04/13/2025 6:01 PM [facility] Ketones, Urine Negative Negative mg/dL LAB URINALYSIS - AUTOMATED METHOD 04/13/2025 6:01 PM [facility] Urobilinogen , Urine 1.0 0.2 - 1.0 mg/dL LAB URINALYSIS - AUTOMATED METHOD 04/13/2025 6:01 PM EDT [facility] Bilirubin, Urine Negative Negative LAB URINALYSIS - AUTOMATED METHOD 04/13/2025 6:01 PM EDT [facility] Blood, Urine Negative Negative LAB URINALYSIS - AUTOMATED METHOD 04/13/2025 6:01 PM [facility] RBC, Urine 4.0 0 - 4 /HPF LAB URINALYSIS - AUTOMATED METHOD 04/13/2025 6:01 PM EDT [facility] WBC, Urine 36.1(H) 0 - 4 /HPF LAB URINALYSIS - AUTOMATED METHOD 04/13/2025 6:01 PM [facility] Squamous Epithelial, Urine 45 0 - 60 /LPF LAB URINALYSIS - AUTOMATED METHOD 04/13/2025 6:01 PM [facility] Bacteria, Urine Few(A) Negative /HPF LAB URINALYSIS - AUTOMATED METHOD 04/13/2025 6:01 PM [facility] Hyaline Casts, Urine 5.2(H) 0 - 3 /LPF LAB URINALYSIS - AUTOMATED METHOD 04/13/2025 6:01 PM [facility] Urine Urine specimen obtained by clean catch procedure / Unknown Non-blood Collection / Unknown 04/13/2025 4:48 PM EDT 04/13/2025 5:12 PM EDT us Stuart [facility] LAB URINE ORDERABLES Final Result [facility] [address] [place] [address], * Velez urine culture tube (04/13/2025 4:48 PM EDT) Extra Tube Hold for add-ons. 04/13/2025 7:01 PM EDT [facility] Comment:Auto resulted. Urine Urine specimen obtained by clean catch procedure / Unknown Non-blood Collection / Unknown 04/13/2025 4:48 PM EDT 04/13/2025 5:12 PM EDT [facility] Final Result Performing Organization Address [facility] de Phone Number [facility] [address] [place] [address], [place] [phone] * (ABNORMAL) Culture urine (04/13/2025 4:48 PM EDT) Culture, Urine >=100,000 CFU/mL Streptococcus beta-hemolytic Group B(A) 04/14/2025 2:29 PM EDT [facility] Comment: Susceptibility testing is not routinely performed for Beta Streptococcus isolates since these organisms are predictably sensitive to Penicillin. If the Patient is not responding, is allergic to Penicillin, or further therapeutic information is requir ed, please consult an Infectious Disease Specialist. Urine Urine specimen obtained by clean catch procedure / Unknown Non-blood Collection / Unknown 04/13/2025 4:48 PM EDT 04/13/2025 6:01 PM EDT [facility] LAB MICROBIOLOGY - GE NERAL ORDERABLES Final Result Performing Organization Address [facility] Co de Phone Number [facility] [address] [place] [address], [place] [phone] * CT Abdomen Pelvis w Contrast (04/13/2025 3:29 PM EDT) Anatomical Region Laterality Modality Body Computed Tomogra phy 04/13/2025 4:17 PM EDT Impressions 04/13/2025 4:20 PM EDT NO ACUTE ABNORMALITY. -------- FINAL REPORT -------- Dictated By: Cindi Posey Dictated Date: 04/13/2025 16:17 ET Assigned Physician: Cindi Posey Reviewed and Electronically Signed By: Cindi Posey Signed Date: 04/13/2025 16:20 ET Workstation ID: [id number] Transcribed By: Self Edit Transcribed Date: 04/13/2025 16:17 ET Narrative 04/13/2025 4:20 PM EDT PROCEDURE: CT ABDOMEN/PELVIS WITH CONTRAST INDICATION: Abdominal pain, acute, nonlocalized TECHNIQUE: CT of the abdomen and pelvis following the intravenous administration of 90cc Isovue 370. Multiplanar reformats. The examination was performed utilizing dose reduction techniques. Total DLP 1298 COMPARISON: No priors available. FINDINGS: LOWER THORAX: Atelectasis at the lung bases very trace effusions. HEPATOBILIARY: No focal liver lesions. No cholelithiasis or biliary duct dilatation. SPLEEN: No focal lesion. PANCREAS: No focal mass or ductal dilatation. ADRENALS: No nodules. KIDNEYS/URETERS: No hydronephrosis, stones, or solid mass. PELVIC ORGANS/BLADDER: Status post hysterectomy. PERITONEUM / RETROPERITONEUM: No ascites or free air. No retroperitoneal lymphadenopathy. VESSELS: Scattered atherosclerotic calcifications throughout the aorta and its major branches. No aneurysm. GI TRACT: Racheal-en-Y gastric bypass no bowel obstruction. Prominent stool burden throughout the colon. Fluid-filled appendix but no inflammatory change. BONES AND SOFT TISSUES: Scattered degenerative changes seen throughout the bones. Soft tissues are unremarkable. Procedure Note Cindi Posey MD - 04/13/2025 PROCEDURE: CT ABDOMEN/PELVIS WITH CONTRAST INDICATION: Abdominal pain, acute, nonlocalized TECHNIQUE: CT of the abdomen and pelvis following the intravenousadministration of 90cc Isovue 370. Multiplanar reformats. The examinationwas performed utilizing dose reduction techniques. Total DLP 1298 COMPARISON: No priors available. FINDINGS: LOWER THORAX: Atelectasis at the lung bases very trace effusions. HEPATOBILIARY: No focal liver lesions. No cholelithiasis or biliary ductdilatation. SPLEEN: No focal lesion. PANCREAS: No focal mass or ductal dilatation. ADRENALS: No nodules. KIDNEYS/URETERS: No hydronephrosis, stones, or solid mass. PELVIC ORGANS/BLADDER: Status post hysterectomy. PERITONEUM / RETROPERITONEUM: No ascites or free air. No retroperitoneallymphadenopathy. VESSELS: Scattered atherosclerotic calcifications throughout the aorta andits major branches. No aneurysm. GI TRACT: Racheal-en-Y gastric bypass no bowel obstruction. Prominent stoolburden throughout the colon. Fluid-filled appendix but no inflammatorychange. BONES AND SOFT TISSUES: Scattered degenerative changes seen throughout thebones. Soft tissues are unremarkable. IMPRESSION: NO ACUTE ABNORMALITY. -------- FINAL REPORT -------- Dictated By: Cindi Posey Dictated Date: 04/13/2025 16:17 ET Assigned Physician: Cindi Posey Reviewed and Electronically Signed By: Cindi Posey Signed Date: 04/13/2025 16:20 ET Workstation ID: [id number] Transcribed By: Self Edit Transcribed Date: 04/13/2025 16:17 ET [facility] IMG CT PROCEDURES Fin al Result * Troponin I high sensitivity (NOW and then in 1 hour) (04/13/2025 12:55 PM EDT) Only the most recent of2 resultswithin the time period is included. High Sensitivity Troponin I <3 <=54 ng/L LAB CHEMISTRY METHOD 04/13/2025 2:36 PM EDT [facility] Blood Venous blood specimen / Unknown Venipuncture / Unknown 04/13/2025 12:55 PM EDT 04/13/2025 1:34 PM EDT Narrative [facility] - 04/13/2025 2:36 PM EDT High levels of biotin in samples may falsely decrease hsTroponin values. Use caution when interpreting hsTroponin results in patients taking biotin who exhibit renal impairment (eGFR <60) or in patients taking more than 20 mg/day of biotin. us Feliciano Serra MD LAB BLOOD ORDERABLES Final Resul t [facility] [address] [place] [address], [place] [phone] * CT Cervical Spine wo Contrast (04/13/2025 12:02 PM EDT) Anatomical Region Laterality Modality Spine, C-spine Computed Tomogra phy 04/13/2025 12:2 5 PM EDT Impressions 04/13/2025 12:32 PM EDT No acute cervical spine fracture. -------- FINAL REPORT -------- Dictated By: KUSHAL MAN Dictated Date: 04/13/2025 12:25 ET Assigned Physician: KUSHAL MAN Reviewed and Electronically Signed By: KUSHAL MAN Signed Date: 04/13/2025 12:32 ET Workstation ID: [id number] Transcribed By: Self Edit Transcribed Date: 04/13/2025 12:25 ET Narrative 04/13/2025 12:32 PM EDT PROCEDURE: Cervical spine CT INDICATION: Pain, trauma TECHNIQUE: Noncontrast CT of the cervical spine with multiplanar reformats. The examination was performed utilizing dose reduction techniques. Total DLP 1040 COMPARISON: No priors available. FINDINGS: No acute fracture or prevertebral swelling. Straightening of the normal cervical lordosis with dextroconvex curvature, likely degenerative and/or positional. Multilevel degenerative changes are seen throughout the cervical spine with uncovertebral spurring and facet arthropathy present. Degenerative endplate changes most pronounced at C5-6 with posterior disc ossify complex and bilateral uncovertebral spurring present at that level. No pneumothorax at the lung apices. Paraspinal muscles are within normal limits. Procedure Note Kushal Man MD - 04/13/2025 PROCEDURE: Cervical spine CT INDICATION: Pain, trauma TECHNIQUE: Noncontrast CT of the cervical spine with multiplanarreformats. The examination was performed utilizing dose reduction techniques. TotalDLP 1040 COMPARISON: No priors available. FINDINGS: No acute fracture or prevertebral swelling. Straightening of the normalcervical lordosis with dextroconvex curvature, likely degenerative and/orpositional. Multilevel degenerative changes are seen throughout the cervical spinewith uncovertebral spurring and facet arthropathy present. Degenerativeendplate changes most pronounced at C5-6 with posterior disc ossifycomplex and bilateral uncovertebral spurring present at that level. No pneumothorax at the lung apices. Paraspinal muscles are within normallimits. IMPRESSION: No acute cervical spine fracture. -------- FINAL REPORT -------- Dictated By: KUSHAL MAN Dictated Date: 04/13/2025 12:25 ET Assigned Physician: KUSHAL MAN Reviewed and Electronically Signed By: KUSHAL MAN Signed Date: 04/13/2025 12:32 ET Workstation ID: [id number] Transcribed By: Self Edit Transcribed Date: 04/13/2025 12:25 ET us Yaheiry Holder-Macon PA IMG CT PROCEDURES Fin al Result * CT Head wo Contrast (04/13/2025 12:02 PM EDT) Anatomical Region Laterality Modality Head and Neck Computed Tomogra phy 04/13/2025 12:1 8 PM EDT Impressions 04/13/2025 12:25 PM EDT No acute intracranial abnormality. -------- FINAL REPORT -------- Dictated By: KUSHAL MAN Dictated Date: 04/13/2025 12:18 ET Assigned Physician: KUSHAL MAN Reviewed and Electronically Signed By: KUSHAL MAN Signed Date: 04/13/2025 12:25 ET Workstation ID: [id number] Transcribed By: Self Edit Transcribed Date: 04/13/2025 12:18 ET Narrative 04/13/2025 12:25 PM EDT PROCEDURE: HEAD CT INDICATION: Pain, trauma TECHNIQUE: CT of the head without intravenous contrast. Multiplanar reformats. The examination was performed utilizing dose reduction techniques. Total DLP 809 COMPARISON: 10/03/2022 FINDINGS: No acute territorial infarct, mass effect, or intracranial hemorrhage. Mild scattered periventricular and subcortical white matter hypodensities are most likely related to chronic small vessel ischemic change. Ventricles, sulci, and cisterns are normal in size and configuration. No hydrocephalus. Visualized paranasal sinuses and mastoid air cells are clear. No scalp hematoma or skull fracture. Procedure Note Kushal Man MD - 04/13/2025 PROCEDURE: HEAD CT INDICATION: Pain, trauma TECHNIQUE: CT of the head without intravenous contrast. Multiplanarreformats. The examination was performed utilizing dose reductiontechniques. Total DLP 809 COMPARISON: 10/03/2022 FINDINGS: No acute territorial infarct, mass effect, or intracranial hemorrhage. Mild scattered periventricular and subcortical white matter hypodensitiesare most likely related to chronic small vessel ischemic change. Ventricles, sulci, and cisterns are normal in size and configuration. Nohydrocephalus. Visualized paranasal sinuses and mastoid air cells are clear. No scalp hematoma or skull fracture. IMPRESSION: No acute intracranial abnormality. -------- FINAL REPORT -------- Dictated By: KUSHAL MAN Dictated Date: 04/13/2025 12:18 ET Assigned Physician: KUSHAL MAN Reviewed and Electronically Signed By: KUSHAL MAN Signed Date: 04/13/2025 12:25 ET Workstation ID: [id number] Transcribed By: Self Edit Transcribed Date: 04/13/2025 12:18 ET Stuart [facility] IM CT PROCEDURES Fin al Result * (ABNORMAL) CBC auto differential (04/13/2025 10:53 AM EDT) WBC 4.1(L) 4.8 - 10.8 K/mcL LAB [facility] RBC 3.80 3.80 - 4.80 M/mcL LAB HEMETOLOGY METHOD 04/13[facility]2025 11[facility] Hemoglobin 11.4(L) 11.5 - 16.0 g/dL LAB HEMETOLOGY METHOD 04/13/2025 11:21 AM [facility] Hematocrit 33.2(L) 35.0 - 47.0 % LAB HEMETOLOGY METHOD 04/13/2025 11:21 AM [facility] MCV 87.4 79.0 - 98.0 FL LAB HEMETOLOGY METHOD 04/13/2025 11:21 AM [facility] MCH 30.0 27.0 - 32.0 pcg LAB HEMETOLOGY METHOD 04/13/2025 11:21 AM [facility] MCHC 34.3 32.0 - 37.0 g/dL LAB HEMETOLOGY METHOD 04/13/2025 11:21 AM [facility] RDW 11.2 11.0 - 15.0 % LAB HEMETOLOGY METHOD 04/13/2025 11:21 AM [facility] Platelets 322 130 - 400 K/mcL LAB HEMETOLOGY METHOD 04/13/2025 11:21 AM [facility] MPV 9.3 7.0 - 11.0 FL LAB HEMETOLOGY METHOD 04/13/2025 11:21 AM [facility] NRBC 0.0 <1.0 % LAB HEMETOLOGY METHOD 04/13/2025 11:21 AM [facility] NRBC Absolute 0.00 <0.10 K/mcL LAB HEMETOLOGY METHOD 04/13/2025 11:21 AM [facility] Neutrophils Relative 66.1 % LAB HEMETOLOGY METHOD 04/13/2025 11:21 AM [facility] Lymphocytes Relative 25.5 % LAB HEMETOLOGY METHOD 04/13/2025 11:21 AM [facility] Monocytes Relative 5.8 % LAB HEMETOLOGY METHOD 04/13/2025 11:21 AM [facility] Eosinophils Relative 1.2 % LAB HEMETOLOGY METHOD 04/13/2025 11:21 AM [facility] Basophils Relative 1.2 % LAB HEMETOLOGY METHOD 04/13/2025 11:21 AM [facility] Immature Granulocytes Relative 0.2 % LAB HEMETOLOGY METHOD 04/13/2025 11:21 AM EDT [facility] Neutrophils Absolute 2.71 1.50 - 7.00 K/[facility] LAB HEMETOLOGY METHOD 04/13/2025 11:21 AM T [facility] Lymphocytes Absolute 1.05 1.00 - 5.00 K/mcL LAB HEMETOLOGY METHOD 04/13/2025 11:21 AM [facility] Monocytes Absolute 0.24 0.20 - 1.00 K/mcL LAB HEMETOLOGY METHOD 04/13/2025 11:21 AM [facility] Eosinophils Absolute 0.05 0.00 - 0.50 K/[facility] LAB HEMETOLOGY METHOD 04/13/2025 11:[facility] Basophils Absolute 0.05 0.00 - 0.20 K/mcL LAB HEMETOLOGY METHOD 04/13/2025 11:21 AM [facility] Immature Granulocytes Absolute 0.01 0.00 - 0.03 K/[facility] LAB HEMETOLOGY METHOD 04/13/2025 11:21 AM [facility] Blood Venous blood specimen / Unknown Venipuncture / Unknown 04/13/2025 10:53 AM EDT 04/13/2025 11:20 AM EDT us Feliciano Serra MD LAB BLOOD ORDERABLES Final Resul t [facility] [address] [place] [address], * Prolactin (04/13/2025 10:53 AM EDT) Prolactin 5.60 See Comment ng/mL LAB CHEMISTRY METHOD 04/13/2025 12:00 PM EDT [facility] Comment: Prolactin Reference Ranges (ng/mL) Non 2.2 - 30.3 8.1 - 347.6 Postmenopausal 0.7 - 31.5 Blood Venous blood specimen / Unknown Venipuncture / Unknown 04/13/2025 10:53 AM EDT 04/13/2025 10:59 AM EDT us Feliciano Serra MD LAB BLOOD ORDERABLES Final Resul t Performing Organization Address [facility]/ZIP Co de Phone Number [facility] [address] [place] [address], [place] [phone] * (ABNORMAL) Magnesium (04/13/2025 10:53 AM EDT) Pathologist [facility] Magnesium 1.7(L) 1.9 - 2.6 mg/dL LAB CHEMISTRY METHOD 04/13/2025 11:58 AM EDT [facility] Blood Venous blood specimen / Unknown Venipuncture / Unknown 04/13/2025 10:53 AM EDT 04/13/2025 10:59 AM EDT us Feliciano Serra MD LAB BLOOD ORDERABLES Final Resul t Performing Organization Address [facility]/ZIP Co de Phone Number [facility] [address] [place] [address], [place] [phone] * Hepatic function panel (04/13/2025 10:53 AM EDT) Pathologist [facility] Total Protein 7.2 6.0 - 8.0 g/dL LAB CHEMISTRY METHOD 04/13/2025 4:58 PM EDT [facility] Albumin 3.6 3.2 - 5.0 g/dL LAB CHEMISTRY METHOD 04/13/2025 4:58 PM EDT [facility] Total Bilirubin 0.4 0.0 - 1.4 mg/dL LAB CHEMISTRY METHOD 04/13/2025 4:58 PM EDT [facility] Bilirubin, Direct 0.1 0.0 - 0.3 mg/dL LAB CHEMISTRY METHOD 04/13/2025 4:58 PM EDT [facility] Bilirubin, Indirect 0.3 0.0 - 1.1 mg/dL LAB CHEMISTRY METHOD 04/13/2025 4:58 PM EDT [facility] ALT (SGPT) 28 10 - 60 unit/L LAB CHEMISTRY METHOD 04/13/2025 4:58 PM [facility] AST (SGOT) 22 10 - 42 unit/L LAB CHEMISTRY METHOD 04/13/2025 4:58 PM [facility] Alkaline Phosphatase 109 42 - 121 unit/L LAB CHEMISTRY METHOD 04/13/2025 4:58 PM [facility] Blood Venous blood specimen / Unknown Venipuncture / Unknown 04/13/2025 10:53 AM EDT 04/13/2025 10:59 AM EDT Stuart REID LAB BLOOD ORDERABLES Final Result [facility] [address] [place] [address], * (ABNORMAL) Basic metabolic panel (04/13/2025 10:53 AM EDT) Sodium 130(L) 133 - 145 mmol/L LAB CHEMISTRY METHOD 04/13/2025 11:58 AM [facility] Potassium 4.2 3.5 - 5.5 mmol/L LAB CHEMISTRY METHOD 04/13/2025 11:58 AM [facility] Chloride 98 96 - 110 mmol/L LAB CHEMISTRY METHOD 04/13/2025 11:58 AM [facility] CO2 24 21 - 32 mmol/L LAB CHEMISTRY METHOD 04/13/2025 11:58 AM [facility] Anion Gap 8 3 - 11 LAB CHEMISTRY METHOD 04/13/2025 11:58 AM [facility] Glucose 108(H) 70 - 100 mg/dL LAB CHEMISTRY METHOD 04/13/2025 11:58 AM [facility] BUN 8 5 - 25 mg/dL LAB CHEMISTRY METHOD 04/13/2025 11:58 AM EDT [facility] Creatinine 0.63 0.50 - 1.10 mg/dL LAB CHEMISTRY METHOD 04/13/2025 11:58 AM EDT [facility] eGFR 107 >=60 mL/min/1. 73m2 LAB CHEMISTRY METHOD 04/13/2025 11:58 AM EDT [facility] Comment:Calculation based on the Chronic Kidney Disease Epidemiology Collaboration (CKD-EPI) equation refit without adjustment for race. BUN/Creatinine Ratio 12.7 LAB CHEMISTRY METHOD 04/13/2025 11:58 AM EDT [facility] Calcium 9.0 8.5 - 10.5 mg/dL LAB CHEMISTRY METHOD 04/13/2025 11:58 AM EDT [facility] Blood Venous blood specimen / Unknown Venipuncture / Unknown 04/13/2025 10:53 AM EDT 04/13/2025 10:59 AM EDT us Feliciano Serra MD LAB BLOOD ORDERABLES Final Resul t [facility] [address] [place] [address], * ECG 12 lead (04/13/2025 10:48 AM EDT) Ventricular Rate ECG 75 BPM GEMUSE Atrial Rate 75 BPM GEMUSE P-R Interval 176 ms GEMUSE QRS Duration 96 ms GEMUSE Q-T Interval 406 ms GEMUSE QTc 453 ms GEMUSE P Wave [place] 17 degrees GEMUSE R [place] 38 degrees GEMUSE T [place] 44 degrees GEMUSE ECG Interpretation Normal sinus rhythm Normal ECG When compared with ECG of 05-AUG-2023 10:49, No significant change was found Confirmed by Ly DELGADO JAMES ([id number]) on 04/13/2025 2:43:59 PM GEMUSE 04/13/2025 10:4 8 AM EDT 04/13/2025 2:43 PM EDT us Feliciano Serra MD ECG ORDERABLES Final Result VANITA * (ABNORMAL) POCT Glucose, blood (04/13/2025 10:46 AM EDT) Glucose POCT 111(H) 70 - 100 mg/dL 04/13/2025 10:47 AM EDT [facility] Blood Capillary blood specimen / Unknown 04/13/2025 10:46 AM EDT 04/13/2025 10:48 AM EDT us Generic Provider Poct LAB POINT OF CARE TEST DOCKED DEVICE UNSOLICITED RESULTS Final Result Performing Organization Address [facility]/ZIP Co de Phone Number [facility] [address] [place] [address], [place] [phone] * Lipid panel with reflex to direct LDL (01/16/2025 12:02 PM EDT) Cholesterol 156 0 - 200 mg/dL LAB CHEMISTRY METHOD 01/16/2025 2:46 PM EDT [facility] Triglycerides 79 0 - 150 mg/dL LAB CHEMISTRY METHOD 01/16/2025 2:46 PM EDT [facility] HDL 71 >=40 mg/dL LAB CHEMISTRY METHOD 01/16/2025 2:46 PM EDT [facility] LDL Calculated 69 0 - 100 mg/dL LAB CHEMISTRY METHOD 01/16/2025 2:46 PM EDT [facility] VLDL Cholesterol Mario 15.8 mg/dL LAB CHEMISTRY METHOD 01/16/2025 2:46 PM EDT [facility] Non HDL Chol. (LDL+VLDL) 85 <145 mg/dL LAB CHEMISTRY METHOD 01/16/2025 2:46 PM EDT [facility] Chol/HDL Ratio 2.2 0.0 - 4.4 LAB CHEMISTRY METHOD 01/16/2025 2:46 PM EDT [facility] Blood Venous blood specimen / Unknown Venipuncture / Unknown 01/16/2025 12:02 PM EDT 01/16/2025 1:47 PM EDT Antoinette REID LAB BLOOD ORDERABLES Fin al Result [facility] [address] [place] [address], [place] [phone] * Depression Screening (09/28/2023) Depression Screening abstracted Historical Provider HEALTH MAINTENANCE Final Result * Pap smear (02/23/2022) 02/23/2022 Narrative HISTORICAL TESTING LAB RESULTING AGENCY - 03/07/2022 3:05 PM EDT [id number] THINPREP PAP, IMAGED: NEGATIVE FOR SQUAMOUS INTRAEPITHELIAL LESION AND MALIGNANCY . ROB PABLO(ASCP) (CASE ELECTRONICALLY SIGNED 03 07 2022) RESULT OF APTIMA HIGH RISK HPV ASSAY: HIGH RISK HPV: NEGATIVE (SEROTYPES 16,18,31,33,35,39,45,51,52,56,58,59,66,68) COMPLETED ON 2022-02-28 ADEQUACY: SATISFACTORY ENDOCERVICAL/TRANSFORMATION ZONE COMPONENT PRESENT. SOURCE: THINPREP PAP HPV ANY DX: REFLEX 16 AND 18, CERVICAL, IMAGED CLINICAL INFORMATION: HPV ANY DIAGNOSIS. Z12.4 us García Romero DO LAB CYTOLOGY ORDERABLES Final Result HISTORICAL TESTING LAB RESULTING AGENCY * HIV Screening (05/25/2011) HIV Screening abstracted Historical Provider HEALTH MAINTENANCE Final Result * Hepatitis C Screening (05/25/2011) Hepatitis C Screening abstracted us Historical Provider HEALTH MAINTENANCE Final Result from Last 3 Months or Most Recently Relevant to Health Maintenance Insurance [facility] [employer] Care Teams [employer] Manager Relationship Specialty Start Date End Date Antoinette Bull PA [address] [place] [address] PCP - General 10/31/23
--- OUTSIDE RECORDS SUMMARY | 2025-04-21 11:26 | XMS_ITS ---
Author Name [facility] Organization Unknown Care Team Organization Name Specialty Phone Email Start Date End Da te [facility] Junior Medina Primary Care 11/29/202204/24 [facility] Linda Medrano Primary Care 08/01/20222023
== END 2025-04-21 10:58 | disposition home or self-care (01) ==
LOC: HO.HSMS 10:27
PROVIDERS: PCP Physician Assistant; Visit Provider Psychiatry & Neurology Neurology
DX: G43.719 Chronic migraine without aura, intractable, without status migrainosus (principal)
CPT/HCPCS: 64615

== ENCOUNTER → 2025-04-21 10:26 | Outpatient (BNVA) | payer OTHER, SELFPAY | PROVIDERS: PCP Physician Assistant; Visit Provider Psychiatry & Neurology Neurology | DX: G43.719 Chronic migraine without aura, intractable, without status migrainosus (principal); F41.9 Anxiety disorder, unspecified; F32.A Depression, unspecified; J45.909 Unspecified asthma, uncomplicated; D64.9 Anemia, unspecified; G40.909 Epilepsy, unspecified, not intractable, without status epilepticus | CPT/HCPCS: 64615; 99211; J0585 ==

== ENCOUNTER 2025-07-21 10:39 | Outpatient (AMB) | payer OTHER, SELFPAY ==
--- NOTE | 2025-07-21 10:40 | MHC.OFFVIS ---
Vital Signs 07/21/25 10:41 Height 5 ft 7 in Weight 242 lb 2 oz BMI 37.9 BP 102/70 Blood Pressure Location Rt brachial Position Sitting Pulse 96 Pulse Source Pulse Oximeter Pulse Oximetry (%) 100 Oxygen Delivery Method Room Air Intake Visit Reasons: 3mon Botox f/u Intake Note: Botox 200 District Gauger Required: No Accompanied by: Self / Same As Patient Allergies zolmitriptan (From ZOMIG) Allergy (Intermediate, Verified 07/21/25 10:41) Migraine Medication List - Last Reconciled 07/21/25 by Gill Bonds MD acetaminophen (Tylenol) 325 mg PO QID PRN albuterol sulfate 90 mcg/actuation (Ventolin HFA) inhalation cholecalciferol (vitamin D3) (Vitamin D3) 1 tab PO DAILY clonazepam 0.5 mg PO TID divalproex (Depakote) 250 mg PO TID PRN 30 days doxepin 150 mg PO BEDTIME ferrous sulfate 324 mg PO DAILY gabapentin 100 mg 2 hours before bed and 200 mg at bedtime orally bedtime; 30 days lasmiditan (Reyvow) 200 mg orally max 2 tabs per day (taken at the same time) PRN; 30 days lisinopril-hydrochlorothiazide 10-12.5 mg 1 tab PO DAILY mecobalamin (vitamin B12) mcg IM metoclopramide HCl 5 - 10 mg (1 - 2 x 5 mg) PO Q4-6H PRN 30 days lnokiuyvgpwu-Mw-jwlm-minerals (Women's Daily Formula) 1 tab PO DAILY naloxone 4 mg/actuation intranasal omeprazole 40 mg PO DAILY onabotulinumtoxinA (Botox) 200 units IM ONCE 12 weeks oxcarbazepine (Trileptal) 600 mg PO BID 90 days oxycodone 5 mg PO BID PRN polyethylene glycol 3350 grams PO propranolol 10 mg PO BID 90 days ropinirole 0.25 - 0.5 mg (1 - 2 x 0.25 mg) PO BEDTIME 90 days sertraline 100 mg PO DAILY topiramate 50 mg PO BID 90 days vitamin B comp and C no.3 (B Complex Plus Vitamin C) 1 cap PO DAILY HPI Comments Details: ? 50y/o female comes for treatment of migraines with botox.She did well with Botox and has 1 migraine day a week. she used to have 20 migraine days a month and uses tylenol or excedrin migraine she did not tolerate sumatriptan, poor response to ubrelvy ??? Most frequent reported adverse reactions following injection of botox for chronic migraine include neck pain (9%), headache(5%), eyelid ptosis(4%), migraine(4%), muscular weakness(4%), musculuskeletal stiffness(4%), bronchitis(3%), injection site pain (3%), musculoskeletal pain(3%), myalgia(3%), facial paresis(2%), HTN(2%) and muscle spasms(2%) were discussed in detail. ??? Botulinum toxin typeA 200units Lot no [id number] expiration Aug 2027 was diluted with 4 cc of normal saline . ??? Muscles injected- ??? Frontalis 4 sites ??? Procerus 1 site ??? Animal Control Supervisor- 2 sites ??? Temporalis- 8 sites ??? Occipitalis- 6 sites ??? Cervical paraspinals- 4 sites ??? Trapezius- 6 sites- 10 units each ??? 5 units each in 31 site ??? Total use- 185units ??? Discarded-15units [facility] Medical History Depression with anxiety Asthma Chronic pain syndrome Sacroiliitis Seizure disorder Migraine Anemia Surgical History Tubal ligation status History of bilateral breast reduction surgery Gastric bypass status for obesity Family History Mother Heart problem Social History Household Members: Spouse Alcohol intake: current Alcohol intake frequency: holidays/special occasions only Comment: pt reports her baseline back pain is 07/03 Patient Tobacco Use Status: Never used Tobacco Current occupational status: disabled Physical Exam Vital Signs: Last Vital Signs Pulse 96 07/21/25 10:41 BP 102/70 07/21/25 10:41 Pulse Ox 100 07/21/25 10:41 Oxygen Delivery Method Room Air 07/21/25 10:41 BMI result Body Mass Index 37.9 Const General: cooperative and no acute distress Orientation/consciousness: patient oriented x3 Resp Effort & Inspection: normal respiratory effort and able to speak in complete sentences Neuro General: patient oriented x3 Cranial nerves: Yes CN's II-XII intact bilaterally Cognition (Neuro): normal cognition Psych Appearance: grossly normal Mental Status: mental status grossly normal Speech and movement: Normal speech and movement present Affect: normal affect Attitude: cooperative Office Procedures Botulinum toxin Injection 87252 - Migraine Procedure code (CPT) selection complete Office Meds onabotulinumtoxinA 200 unit solution for injection Performing Provider: Gill Bonds MD Performing Location: [facility] Administered by: Gill Bonds MD on 07/21/25 13:10 Dose Route Admin Location Dispensed Lot Number Expiration Date 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 185 unit subcut 200 units [id number] [employer] Total Dispensed Waste 200 units 7.5 % Comments: see hpi Assessment & Plan Assessment & Plan (1) Chronic migraine without aura: Code(s): G43.709 - Chronic migraine without aura, not intractable, without status migrainosus Category: Medical Qualifiers: Status migrainosus presence: without status migrainosus Intractability: intractable Qualified Code(s): G43.719 - Chronic migraine without aura, intractable, without status migrainosus (2) Seizure disorder: Code(s): G40.909 - Epilepsy, unspecified, not intractable, without status epilepticus Category: Medical Plan Patient tolerated the procedure well SHe will call with any side effects. Gabapentin 100 mg 3 tabs qhs Orders: Orders AMB Botulinum toxin Injection Today G43.719 - Chronic migraine without aura, intractable, without status migrainosus Coding Level of Care Code Est Pt Level 1 (67225) Diagnoses Intractable chronic migraine without aura and without status migrainosus G43.719 Status migrainosus presence: without status migrainosus Intractability: intractable Seizure disorder G40.909 CPT Codes Botox Injection - Botox 3: 01558 - Migraine ([id number])
[2025-07-21 10:41] VITALS: BP 102/70; PULSE 96; O2SAT 100; BMI 37.9
--- OUTSIDE RECORDS SUMMARY | 2025-07-21 13:24 | XMS_ITS | Clinical Summary ---
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 Name Role Phone Unavailable Primary Care Provider [...] Active Active Problems No known active problems Encounters Date Type Department Care Team Description 05/22/2025 Telephone [facility] [address] [place] [address] Tammi Shore, BRANDYN from Last 3 Months Family History Medical History Relation Name Comments [...] FIT 1973 FOBT 1973 HIV Screening 1973 Lipid Panel 1973 SDOH Screening 1973 Sigmoidoscopy 1973 Disability Screening 1973 Alcohol/Substance Use Screening 1985 Family Planning (PISQ) 1988 Hepatitis C Screening 1991 Hepatitis B Vaccines (1 of 3 - 19+ 3-dose series) 1992 Pneumococcal Vaccine: 50+ Years (1 of 2 - PCV) 1992 Pap Smear 1994 Cervical Cancer Screening 2003 HPV/Cotest 2003 Mammogram 2013 Zoster Vaccines (1 of 2) 2023 Tobacco Screening 08/23/2024 08/23/2023 COVID-19 Vaccine ( season) 2025 02/14/2022, 03/03/2021, 02/03/2021 Influenza Vaccine (#1) 2025 , 08/23/2021, 08/07/2020, [...] patient's age to complete this topic Insurance [employer]
== END 2025-07-21 11:03 | disposition home or self-care (01) ==
LOC: HO.HSMS 10:39
PROVIDERS: PCP Physician Assistant; Visit Provider Psychiatry & Neurology Neurology
DX: G43.719 Chronic migraine without aura, intractable, without status migrainosus (principal)
CPT/HCPCS: 64615

== ENCOUNTER → 2025-07-21 10:39 | Outpatient (BNVA) | payer OTHER, SELFPAY | PROVIDERS: PCP Physician Assistant; Visit Provider Psychiatry & Neurology Neurology | DX: G43.719 Chronic migraine without aura, intractable, without status migrainosus (principal) | CPT/HCPCS: 64615; 99211; J0585 ==

== ENCOUNTER 2025-09-01 14:31 | Outpatient (REF) | payer OTHER, SELFPAY ==
[2025-09-01 18:16] LABS: MANUAL DIFF FLAG NO
[2025-09-01 18:23] LABS: Hematocrit 34.2 % (37.0-47.0); Hemoglobin 11.3 g/dl (12.0-16.0); Imm Gran Abs Auto 0.01 X10*3/uL (0.00-0.03); Imm Gran Pct Auto 0.2 % (0.0-0.4); Lymphocytes Absolute Auto 2.6 X10*3/uL (1.2-4.9); Mean Corpuscular HGB Conc 33.0 g/dl (31.0-35.0); Mean Corpuscular Hemoglobin 30.1 pg (27.0-33.0); Mean Corpuscular Volume 91.2 fL (80.0-98.0); NRBC Abs Auto 0.000 X10*3/uL (0.0-0.012); NRBC Pct Auto 0.0 /100WBC (0.0-0.2); Platelet Count 328 X10*3/uL (160-400); Red Blood Count 3.75 X10*6/uL (4.20-5.50); White Blood Count 5.7 X10*3/uL (4.8-10.8)
[2025-09-01 18:34] LABS: Alanine Aminotransferase 20 U/L (0-31); Albumin Level 4.2 g/dL (3.5-5.0); Alkaline Phosphatase 100 U/L (39-117); Anion Gap 11 (12-20); Aspartate Amino Transferase 36 U/L (5-31); Blood Urea Nitrogen 18 mg/dL (9-16); Calcium 9.3 mg/dL (8.4-10.2); Carbon Dioxide 27 mmol/L (22-29); Chloride 108 mmol/L (96-108); Estimated Glomerular Filt Rate > 60; Potassium 4.3 mmol/L (3.3-5.1); Sodium 142 mmol/L (135-145); Total Protein 7.1 g/dL (6.5-8.0)
--- OUTSIDE RECORDS SUMMARY | 2025-09-01 20:28 | XMS_ITS | Clinical Summary ---
Author Organization [employer] Address [address] [facility] [address] [place] [address] Care Team Providers Care Ent Nurse Name Role Phone Unavailable Primary Care Provider [...] Cancer Screening 2003 HPV/Cotest 2003 Mammogram 2013 RSV Patients and Patients Aged 60 years or older (1 - Risk 50-74 years 1-dose series) 2023 Zoster Vaccines (1 of 2) 2023 Tobacco Screening 08/23/2024 08/23/2023 COVID-19 Vaccine (4 - season) 2025 02/14/2022, 03/03/2021, 02/03/2021 Influenza Vaccine (#1) 2025 , 08/23/2021, 08/07/2020, Additional history exists DTaP/Tdap/Td Vaccines (3 - Td or Tdap) 03/07/2031 03/07/2021, 10/25/2010 HIB Vaccines Aged Out No longer eligi [...]
== END 2025-09-01 14:32 | disposition home or self-care (01) ==
LOC: HO.HKASLDS 14:31
PROVIDERS: PCP Physician Assistant; Visit Provider Psychiatry & Neurology Neurology
DX: G40.909 Epilepsy, unspecified, not intractable, without status epilepticus (principal)
CPT/HCPCS: 36415; 80053; 85025